=== PATIENT | female | born 1935 | race Caucasian/White ===

== ENCOUNTER 2018-02-01 21:29 | Inpatient (IN) | payer MEDICAID ==
[2018-02-01] MEDS ORDERED: Morphine 4 MG/ML VIAL IV ONE (21:55)
[2018-02-01 22:05] LABS: BASO # 0.2 K/uL (0.0-0.2); BASO % 2.1 % (0.0-2.0); EOS # 0.2 K/uL (0.0-0.7); EOS % 2.6 % (0.0-4.0); HEMOGLOBIN 13.9 g/dL (11.0-16.0); LYMPH # 3.8 K/uL (1.0-4.3); LYMPH % 46.9 % (20.0-40.0); MEAN CELL VOLUME 87.9 fL (81.0-99.0); MEAN CORPUSCULAR HEMOGLOBIN 29.1 pg (27.0-31.0); MEAN CORPUSCULAR HGB CONC 33.1 g/dL (33.0-37.0); MEAN PLATELET VOLUME 9.1 fL (7.2-11.7); MONO # 0.5 K/uL (0.0-0.8); MONO % 6.5 % (0.0-10.0); NEUT # 3.4 K/uL (1.8-7.0); NEUT % 41.9 % (50.0-75.0); RBC 4.78 Mil/uL (3.80-5.20); RED CELL DISTRIBUTION WIDTH 13.8 % (11.5-14.5); WHITE BLOOD COUNT 8.1 K/uL (4.8-10.8)
[2018-02-01 22:13] LABS: PROTHROMBIN TIME 11.1 SECONDS (9.7-12.2)
[2018-02-01 22:18] LABS: ALB/GLOB RATIO 1.1 (1.0-2.1); ALBUMIN 4.6 g/dL (3.5-5.0); ALT/SGPT 23 U/L (9-52); AST/SGOT 38 U/L (14-36); BLOOD UREA NITROGEN 23 mg/dL (7-17); CALCIUM 9.9 mg/dl (8.6-10.4); GFR AFRICAN-AMERICAN > 60; GFR NON-AFRICAN AMERICAN > 60
[2018-02-01 22:39] LABS: URINE BACTERIA RARE (<OCC); URINE BILIRUBIN NEGATIVE (NEGATIVE); URINE BLOOD NEGATIVE (NEGATIVE); URINE CLARITY Clear (Clear); URINE COLOR Yellow (YELLOW); URINE GLUCOSE (UA) 1+ mg/dL (Normal); URINE LEUKOCYTE ESTERASE NEG Leu/uL (Negative); URINE PROTEIN NEGATIVE (NEGATIVE); URINE UROBILINOGEN NORMAL mg/dL (0.2-1.0)
[2018-02-01 22:53] LABS: BARBITURATES, UR NEGATIVE (NEGATIVE); BENZODIAZEPINES, UR NEGATIVE (NEGATIVE); PHENCYCLIDINE, UR NEGATIVE (NEGATIVE)
[2018-02-01 23:07] LABS: OPIATES, UR POSITIVE (NEGATIVE)
--- NOTE | 2018-02-01 23:25 | C.PDOC ---
History Of Present Illness 82 year old female is brought to the ED by EMS for evaluation of right hip and elbow pain. Patient reports she fell while standing at home. Patient denies LOC , headache, head injury, blurry vision, weakness, numbness. Time Seen by Provider: 02/01/18 21:50 Chief Complaint (Nursing): Lower Extremity Problem/Injury History Per: Patient History/Exam Limitations: no limitations Onset/Duration Of Symptoms: Hrs Current Symptoms Are (Timing): Still Present Recent travel outside of the [place]: No Additional History Per: Patient - Hip Description Of Injury: Fell Currently Unable To: Straighten Past Medical History Reviewed: Historical Data, Nursing Documentation, Vital Signs Vital Signs: Last Vital Signs Temp 98.2 F 02/02/18 01:37 Pulse 64 02/01/18 23:26 Resp 16 02/02/18 01:37 BP 173/59 H 02/02/18 01:37 Pulse Ox 98 02/02/18 01:37 - Medical History PMH: No Chronic Diseases Surgical History: No Surg Hx Family History: States: Unknown Family Hx - Social History Hx Alcohol Use: No Hx Substance Use: No - Immunization History Hx Tetanus Toxoid Vaccination: No Hx Influenza Vaccination: No Hx Pneumococcal Vaccination: No Review Of Systems Constitutional: Negative for: Fever, Chills Cardiovascular: Negative for: Chest Pain Respiratory: Negative for: Shortness of Breath Gastrointestinal: Negative for: Abdominal Pain Musculoskeletal: Positive for: Arm Pain, Leg Pain Skin: Negative for: Rash Neurological: Negative for: Weakness, Numbness Physical Exam - Physical Exam Appears: Non-toxic, No Acute Distress Skin: Normal Color, Warm, Dry Head: Atraumatic, Normacephalic Eye(s): bilateral: Normal Inspection, PERRL, EOMI Nose: No Discharge Oral Mucosa: Moist Neck: Normal ROM, Supple Chest: Symmetrical Cardiovascular: Rhythm Regular, No Murmur Respiratory: Normal Breath Sounds, No Rales, No Rhonchi, No Wheezing Gastrointestinal/Abdominal: Soft, No Tenderness, No Guarding, No Rebound Extremity: Normal ROM (painful right elbow), No Tenderness, Capillary Refill (< 2 seconds), Swelling (abarsion to rigth elbow), Other (right leg shortened) Pulses: Left Dorsalis Pedis: Normal, Right Dorsalis Pedis: Normal Neurological/Psych: Oriented x3, Normal Speech, Normal Cognition Gait: Unable To Assess ED Course And Treatment - Laboratory Results Result Diagrams: 02/01/18 22:00 02/01/18 22:00 Lab Interpretation: Normal (+ opiates from morphine ? earlier surgery abd) ECG: Interpreted By Me ECG Rhythm: Sinus Rhythm ECG Interpretation: Normal Rate From EC (BPM) O2 Sat by Pulse Oximetry: 98 (ON RA) Pulse Ox Interpretation: Normal - Radiology CXR: Interpreted by Me CXR Interpretation: Yes: No Acute Disease - Other Rad R elbow X-Ray: Interpreted by Me (+ olecranon/elbow fx) R hip X-Ray: Interpreted by Me (+ R hip fx, no pelvic fx) Progress Note: morphine. posterior splint R elbow Reevaluation Time: 23:26 Reassessment Condition: Improved - Physician Consult Information Outcome Of Conversation: 2315: d/w Dr. Gramajo- Hospitalist [facility]-ok to admit. 2315: d/w Dr. Bobby- Ortho [facility]- ok to Consult Medical Decision Making Medical Decision Making: fall from standing ? dizzy from narcs from prior abd surgery? + R elbow/hip fx's. old L hip fx ORIF Disposition Doctor Will See Patient In The: Hospital Counseled Patient/Family Regarding: Studies Performed, Diagnosis - Disposition Disposition: HOSPITALIZED Disposition Time: 23:27 Condition: GOOD - Clinical Impression Clinical Impression: Hip fracture, Elbow fracture, right - Scribe Statement The provider has reviewed the documentation as recorded by the Scribe Aden Silva All medical record entries made by the Scribe were at my direction and personally dictated by me. I have reviewed the chart and agree that the record accurately reflects my personal performance of the history, physical exam, medical decision making, and the department course for this patient. I have also personally directed, reviewed, and agree with the discharge instructions and disposition.
[2018-02-01] MEDS ORDERED: Bacitracin 500 Units/gm Oint Foilpak UD ONE (23:47)
--- NOTE | 2018-02-01 23:47 | CP.PCM.HP ---
<Marianne Banda - Last Filed: 02/02/18 02:01> History of Present Illness - History of Present Illness History of Present Illness: H&P: 82 year old female with past medical history of HTN, diverticulitis, inguinal hernia repair with bowel resection 09/06 presented to hospital after experiencing a fall at home. Patient states that she tripped over an object at home and landed on her right side. Patient denies any LOS, dizziness, lightheadedness. Patient denied having any CP or palpitations when she tripped. Hip and elbow x rays done in ED showed right hip fracture and right olecranon fracture. Currently pt c/o right hip pain 7/10 in severity. Otherwise pt is resting comfortably. Denies having any CP, SOB, pain, N/V/D/C, F/C, cough , [place], tingling, numbness in extremities. Patient does have an open wound in periumbilical region. She states that after her open inguinal hernia repair with bowel resection in 08/2017, she developed an intraabdominal infection which was treated with oral Abx and open wound to be drained. Currently, denies having any drainage or pain at wound site. Pmhx: stated above Sx: inguinal hernia repair with bowel resection 08/2017. Left hip sx Social: former smoker quit 3 yrs ago, denies ETOH or drug use Meds: Enalapril 50 mg po qd NKDA Present on Admission - Present on Admission Any Indicators Present on Admission: No Review of Systems - Constitutional Constitutional: absent: Chills, Fever - EENT Eyes: absent: Blurred Vision, Change in Vision Nose/Mouth/Throat: absent: Nasal Congestion, Sore Throat - Cardiovascular Cardiovascular: absent: Chest Pain, Dyspnea, Dyspnea on Exertion, Pedal Edema - Respiratory Respiratory: absent: Cough, Dyspnea on Exertion, Wheezing - Gastrointestinal Gastrointestinal: absent: Abdominal Pain, Constipation, Diarrhea, Nausea, Vomiting - Genitourinary Genitourinary: absent: Dysuria, Urinary Frequency - Musculoskeletal Musculoskeletal: absent: Back Pain, Neck Pain, Numbness, Tingling - Integumentary Integumentary: Wounds. absent: Lesions - Neurological Neurological: absent: Abnormal Gait, Frequent Falls, Headaches, Tingling, Weakness - Psychiatric Psychiatric: absent: Anxiety, Depression Past Patient History - Past Social History Smoking Status: Former Smoker Chewing Tobacco Use: No Cigar Use: No Alcohol: None Drugs: Denies - GASTROINTESTINAL Hx Gastrointestinal Disorders: Yes Other/Comment: colon Sx 08/2017 - PSYCHIATRIC Hx Substance Use: No - SURGICAL HISTORY Hx Surgeries: Yes Other/Comment: colon surgery 08/2017 - ANESTHESIA Hx Anesthesia: Yes Hx Anesthesia Reactions: No Meds Allergies/Adverse Reactions: Allergies Allergy/AdvReac Type Severity Reaction Status Date / Time No Known Allergies Allergy Verified 02/01/18 21:45 Physical Exam - Constitutional Appears: Non-toxic, No Acute Distress - Head Exam Head Exam: ATRAUMATIC - ENT Exam ENT Exam: Mucous Membranes Moist - Respiratory Exam Respiratory Exam: Clear to Auscultation Bilateral. absent: Accessory Muscle Use , Rales, Rhonchi, Wheezes, Respiratory Distress - Cardiovascular Exam Cardiovascular Exam: REGULAR RHYTHM, +S1, +S2. absent: Diastolic murmur, Gallop , Rubs, Systolic Murmur - GI/Abdominal Exam GI & Abdominal Exam: Normal Bowel Sounds, Soft. absent: Distended, Firm, Guarding, Rigid, Tenderness - Extremities Exam Extremities exam: Positive for: tenderness (right hip and right elbow tenderness ). Negative for: pedal edema - Neurological Exam Neurological exam: Alert, Oriented x3 - Psychiatric Exam Psychiatric exam: Normal Affect, Normal Mood - Skin Skin Exam: Dry, Warm Additional comments: mid line abd wound noted Results - Vital Signs Recent Vital Signs: Last Vital Signs Temp 98.4 F 02/01/18 23:26 Pulse 64 02/01/18 23:26 Resp 18 02/01/18 23:26 BP 217/85 H 02/01/18 23:26 Pulse Ox 98 02/01/18 23:28 - Labs Result Diagrams: 02/01/18 22:00 02/01/18 22:00 Labs: Laboratory Results - last 24 hr 02/01/18 02/01/18 02/01/18 22:00 22:00 22:00 WBC 8.1 RBC 4.78 Hgb 13.9 Hct 42.0 MCV 87.9 MCH 29.1 MCHC 33.1 RDW 13.8 Plt Count 278 MPV 9.1 Neut % (Auto) 41.9 L Lymph % (Auto) 46.9 H [place] % (Auto) 6.5 Eos % (Auto) 2.6 Baso % (Auto) 2.1 H Neut # (Auto) 3.4 Lymph # (Auto) 3.8 [place] # (Auto) 0.5 Eos # (Auto) 0.2 Baso # (Auto) 0.2 PT 11.1 INR 1.0 APTT 33 Sodium 145 Potassium 3.5 L Chloride 103 Carbon Dioxide 24 Anion Gap 21 H BUN 23 H Creatinine 0.6 L Est GFR ( Amer) > 60 Est GFR (Non-Af Amer) > 60 Random Glucose 149 H Calcium 9.9 Total Bilirubin 0.5 AST 38 H ALT 23 Alkaline Phosphatase 129 H Total Protein 8.9 H Albumin 4.6 Globulin 4.2 H Albumin/Globulin Ratio 1.1 Urine Color Urine Clarity Urine pH Ur Specific [place] Urine Protein Urine Glucose (UA) Urine Ketones Urine Blood Urine Nitrate Urine Bilirubin Urine Urobilinogen Ur Leukocyte Esterase Urine WBC (Auto) Urine RBC (Auto) Urine Bacteria Urine Opiates Screen Urine Methadone Screen Ur Barbiturates Screen Ur Phencyclidine Scrn Ur Amphetamines Screen U Benzodiazepines Scrn U Oth Cocaine Metabols U Cannabinoids Screen 02/01/18 02/01/18 22:34 22:34 WBC RBC Hgb Hct MCV MCH MCHC RDW Plt Count MPV Neut % (Auto) Lymph % (Auto) [place] % (Auto) Eos % (Auto) Baso % (Auto) Neut # (Auto) Lymph # (Auto) [place] # (Auto) Eos # (Auto) Baso # (Auto) PT INR APTT Sodium Potassium Chloride Carbon Dioxide Anion Gap BUN Creatinine Est GFR ( Amer) Est GFR (Non-Af Amer) Random Glucose Calcium Total Bilirubin AST ALT Alkaline Phosphatase Total Protein Albumin Globulin Albumin/Globulin Ratio Urine Color Yellow Urine Clarity Clear Urine pH 5.0 Ur Specific [place] 1.016 Urine Protein Negative Urine Glucose (UA) 1+ Urine Ketones Negative Urine Blood Negative Urine Nitrate Negative Urine Bilirubin Negative Urine Urobilinogen Normal Ur Leukocyte Esterase Neg Urine WBC (Auto) 2 Urine RBC (Auto) 1 Urine Bacteria Rare Urine Opiates Screen Positive H Urine Methadone Screen Negative Ur Barbiturates Screen Negative Ur Phencyclidine Scrn Negative Ur Amphetamines Screen Negative U Benzodiazepines Scrn Negative U Oth Cocaine Metabols Negative U Cannabinoids Screen Negative Assessment & Plan - Assessment and Plan (Free Text) Assessment: 82 year old female with past medical history of HTN, osteoporosis, diverticulitis is admitted for right hip fracture and right olecranon fractures as seen on x rays (official report pending). Right hip fracture - Orthopedics, Dr. Bobby is consulted - Will admit to med/surg - Will get Ct scan of right hip - PT/OT - Pain management with morphine 2 mg q4 - Zofran prn Olecranon fracture - Ortho consulted - PT/OT HTN - Will start home medication enalapril Prophylaxis - SCDs. will hold on oral AC for possible surgery tomorrow - Pepcid Case discussed with attending, Dr. Gramajo - Date & Time Date: 02/01/18 Time: 23:44 <Clay Gramajo - Last Filed: 02/02/18 07:53> Results - Vital Signs Recent Vital Signs: Last Vital Signs Temp 98.2 F 02/02/18 07:10 Pulse 62 02/02/18 07:10 Resp 18 02/02/18 07:10 BP 177/71 H 02/02/18 07:10 Pulse Ox 96 02/02/18 07:10 - Labs Result Diagrams: 02/01/18 22:00 02/01/18 22:00 Labs: Laboratory Results - last 24 hr 02/01/18 02/01/18 02/01/18 22:00 22:00 22:00 WBC 8.1 RBC 4.78 Hgb 13.9 Hct 42.0 MCV 87.9 MCH 29.1 MCHC 33.1 RDW 13.8 Plt Count 278 MPV 9.1 Neut % (Auto) 41.9 L Lymph % (Auto) 46.9 H [place] % (Auto) 6.5 Eos % (Auto) 2.6 Baso % (Auto) 2.1 H Neut # (Auto) 3.4 Lymph # (Auto) 3.8 [place] # (Auto) 0.5 Eos # (Auto) 0.2 Baso # (Auto) 0.2 PT 11.1 INR 1.0 APTT 33 Sodium 145 Potassium 3.5 L Chloride 103 Carbon Dioxide 24 Anion Gap 21 H BUN 23 H Creatinine 0.6 L Est GFR ( Amer) > 60 Est GFR (Non-Af Amer) > 60 Random Glucose 149 H Calcium 9.9 Total Bilirubin 0.5 AST 38 H ALT 23 Alkaline Phosphatase 129 H Total Protein 8.9 H Albumin 4.6 Globulin 4.2 H Albumin/Globulin Ratio 1.1 Urine Color Urine Clarity Urine pH Ur Specific [place] Urine Protein Urine Glucose (UA) Urine Ketones Urine Blood Urine Nitrate Urine Bilirubin Urine Urobilinogen Ur Leukocyte Esterase Urine WBC (Auto) Urine RBC (Auto) Urine Bacteria Urine Opiates Screen Urine Methadone Screen Ur Barbiturates Screen Ur Phencyclidine Scrn Ur Amphetamines Screen U Benzodiazepines Scrn U Oth Cocaine Metabols U Cannabinoids Screen 02/01/18 02/01/18 22:34 22:34 WBC RBC Hgb Hct MCV MCH MCHC RDW Plt Count MPV Neut % (Auto) Lymph % (Auto) [place] % (Auto) Eos % (Auto) Baso % (Auto) Neut # (Auto) Lymph # (Auto) [place] # (Auto) Eos # (Auto) Baso # (Auto) PT INR APTT Sodium Potassium Chloride Carbon Dioxide Anion Gap BUN Creatinine Est GFR ( Amer) Est GFR (Non-Af Amer) Random Glucose Calcium Total Bilirubin AST ALT Alkaline Phosphatase Total Protein Albumin Globulin Albumin/Globulin Ratio Urine Color Yellow Urine Clarity Clear Urine pH 5.0 Ur Specific [place] 1.016 Urine Protein Negative Urine Glucose (UA) 1+ Urine Ketones Negative Urine Blood Negative Urine Nitrate Negative Urine Bilirubin Negative Urine Urobilinogen Normal Ur Leukocyte Esterase Neg Urine WBC (Auto) 2 Urine RBC (Auto) 1 Urine Bacteria Rare Urine Opiates Screen Positive H Urine Methadone Screen Negative Ur Barbiturates Screen Negative Ur Phencyclidine Scrn Negative Ur Amphetamines Screen Negative U Benzodiazepines Scrn Negative U Oth Cocaine Metabols Negative U Cannabinoids Screen Negative Attending/Attestation - Attestation I have personally seen and examined this patient.: Yes I have fully participated in the care of the patient.: Yes I have reviewed all pertinent clinical information: Yes Notes (Text): 02/02/18 07:49 * Fell on right side, has fracture in right elbow, right trochantaric area tenderness and pain, ? impacted fracture, CT ordered to confirm. 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 scd pain control gi prophylaxis.
[2018-02-02] MEDS ORDERED: Bacitracin 500 Units/gm Oint Foilpak UD TOP ONE
[2018-02-02] MEDS ORDERED: Morphine 4 MG/ML VIAL IVP PRN ×2 (00:24→07:24)
[2018-02-02] MEDS: Sodium Chloride 0.9% 1,000 ML IV SCH (00:50)
[2018-02-02] MEDS ORDERED: Oxycodone/Acetaminophen 5/325 mg Tab PO STA (04:14)
--- NOTE | 2018-02-02 09:14 | RAD ---
Chest x-ray single frontal view History: Hip fracture. Comparison: None available. Findings: Linear atelectatic changes at left lung base with associated elevated left hemidiaphragm. Emphysematous changes. Upper lobe granulomatous changes. Right hilar prominence. Additional mild linear atelectasis at the right lung base. Tortuous aorta. Degenerative changes in the spine with paravertebral osteophytes. Impression: Linear atelectatic changes at left lung base with associated elevated left hemidiaphragm. Emphysematous changes. Upper lobe granulomatous changes. Right hilar prominence. Additional mild linear atelectasis at the right lung base. Tortuous aorta.
--- NOTE | 2018-02-02 09:28 | CT ---
PROCEDURE: CT right hip HISTORY: fall, hip pain COMPARISON: None available TECHNIQUE: 2.5 mm contiguous axial sections were acquired through the right hip. Sagittal and coronal images were reformatted from the axial scan. FINDINGS: There is a nondisplaced intertrochanteric fracture of the right hip with mild impaction. There is no angulation of the fracture. There is no additional fracture identified. The femoral head is normally situated in the acetabulum. There is no acetabular fracture. There is no soft tissue hematoma appreciated. IMPRESSION: Nondisplaced intertrochanteric fracture of the right hip with mild impaction.
[2018-02-02] MEDS ORDERED: Enoxaparin 40 mg Syringe SC SCH (10:00)
[2018-02-02] MEDS ORDERED: Potassium Chloride 20 mEq ER Tab PO ONE (10:00)
[2018-02-02] MEDS: Oxycodone/Acetaminophen 5/325 mg Tab PO PRN (10:12)
--- NOTE | 2018-02-02 12:09 | CP.PCM.PN ---
<Yaritza Mckeon - Last Filed: 02/02/18 12:06> Subjective - Date & Time of Evaluation Date of Evaluation: 02/02/18 Time of Evaluation: 11:00 - Subjective Subjective: Medicine Note for Hospitalist Service- Dr. Jonel Naik Patient was seen and examined at bedside. Patient reports she has mild abdominal pain. Denied fever, chills, headaches, chest pain, shortness of breath , n/v/d/c, or urinary symptoms. Objective - Vital Signs/Intake and Output Vital Signs (last 24 hours): Temp Pulse Resp BP Pulse Ox 98.2 F 62 18 174/78 H 96 02/02/18 07:10 02/02/18 07:10 02/02/18 07:10 02/02/18 10:04 02/02/18 07:10 Intake and Output: 02/02/18 02/02/18 06:59 18:59 Output Total 300 Balance -300 - Medications Medications: Current Medications Acetaminophen (Tylenol 325mg Tab) 650 mg PO Q6 PRN PRN Reason: Pain, Mild (1-3) Enalapril Maleate (Vasotec) 40 mg PO DAILY [facility] Last Admin: 02/02/18 10:04 Dose: 40 mg Famotidine (Pepcid) 20 mg PO BID [facility] Last Admin: 02/02/18 10:04 Dose: 20 mg Hydralazine HCl (Apresoline) 10 mg IVP Q6H PRN PRN Reason: Systolic Blood Pressure Sodium Chloride (Sodium Chloride 0.9%) 1,000 mls @ 75 mls/hr IV .[id number] [facility] Last Admin: 02/02/18 00:50 Dose: 75 mls/hr Morphine Sulfate (Morphine) 1 mg IVP Q4H PRN PRN Reason: Pain, severe (8-10) Ondansetron HCl (Zofran Inj) 4 mg IVP Q6 PRN PRN Reason: Nausea/Vomiting Oxycodone/Acetaminophen (Percocet 5/325 Mg Tab) 1 tab PO Q4H PRN PRN Reason: Pain, moderate (4-7) Stop: 02/05/18 07:26 Last Admin: 02/02/18 10:12 Dose: 1 tab - Labs Labs: 02/01/18 22:00 05/14/18 22:00 PT 11.1 SECONDS (9.7-12.2) 02/01/18 22:00 INR 1.0 02/01/18 22:00 APTT 33 SECONDS (21-34) 02/01/18 22:00 - Constitutional Appears: No Acute Distress - Head Exam Head Exam: NORMAL INSPECTION, NORMOCEPHALIC - Eye Exam Eye Exam: EOMI, Normal appearance, PERRL - ENT Exam ENT Exam: Mucous Membranes Moist - Respiratory Exam Respiratory Exam: Clear to Ausculation Bilateral, NORMAL BREATHING PATTERN - Cardiovascular Exam Cardiovascular Exam: REGULAR RHYTHM, RRR, +S1, +S2 - GI/Abdominal Exam GI & Abdominal Exam: Soft, Tenderness (LLQ, surgical site clean, dry, some eschar noted mildine, no pus, no drainage, no erythema, no evidence of cellulitis overal healing well. placed clean, NONadhesive dressing to site. ), Normal Bowel Sounds Assessment and Plan - Assessment and Plan (Free Text) Assessment: 82 year old female with past medical history of HTN, osteoporosis, diverticulitis, S/P Ventral hernia repair with bowel resection 08/2017 (wound approximating, healing well) is admitted for right hip fracture and right olecranon fractures as seen on x rays, nondisplaced right hip fracture confirmed on CT Scan. Plan: Nondisplaced Right Hip Fracture - Orthopedics, Dr. Bobby is consulted Imaging: - Hip CT: Nondisplaced intertrochanteric fracture of the right hip with mild impaction. - Hip/ Pelvis Xray: Impacted fracture right femoral neck without dislocation. Degenerative changes are seen the bilateral sacroiliac and right hip joints. Diffuse osteopenia suggests osteoporosis. Prior left partial head replacement identified. - Elbow Xray: Comminuted nondisplaced fracture proximal right ulna through the olecranon process with extensive overlying soft tissue edema throughout the dorsal elbow soft tissues. No dislocation. Management: - Pain management with tylenol, percocet, morphine PRN - Zofran prn Medical Clearance: - EKG: NSR @ 65 BPM, NAD, no ST changes - CXR : NAD, Linear atelectatic changes at left lung base with associated elevated left hemidiaphragm. Emphysematous changes. Upper lobe granulomatous changes. Right hilar prominence. Additional mild linear atelectasis at the right lung base. Tortuous aorta. - Labs - cbc, cmp, and coags - WNL - ECHO - - Will speak to Orthro if OR is necessary - Lanasky's criteria: - Orthopedics and anesthesia to discuss risks and benefits prior to procedure respectively - Will hold anticoagulation for possible OR Olecranon fracture - Orthopedics, Dr. Bobby is consulted HTN - Will start home medication enalapril 40mg PO daily - Hydralazine 10mg IVP Q6H PRN for SBP > 160 mmHg, HR <60 - Patient is on fluids this will also increase BP - F/U ECHO S/P Ventral hernia repair with bowel resection 08/2017 - Wound approximating, healing well - Will continue with dressings - Continue to monitor site Prophylaxis - GI: Pepcid - DVT: SCDs, VTE c/i for pre-op - PT/OT Disposition: Will follow up with ortho to determine if OR is necessary for nondisplaced hip fracture. DW Yaritza Perez DO, PGY-1 <Jonel Naik J - Last Filed: 02/02/18 19:37> Objective - Vital Signs/Intake and Output Vital Signs (last 24 hours): Temp Pulse Resp BP Pulse Ox 98.1 F 57 L 18 107/52 L 96 02/02/18 15:20 02/02/18 15:20 02/02/18 15:20 02/02/18 15:20 02/02/18 15:20 Intake and Output: 02/02/18 02/03/18 18:59 06:59 Intake Total 300 Balance 300 - Medications Medications: Current Medications Acetaminophen (Tylenol 325mg Tab) 650 mg PO Q6 PRN PRN Reason: Pain, Mild (1-3) Docusate Sodium (Colace) 100 mg PO BID [facility] Last Admin: 02/02/18 17:27 Dose: 100 mg Enalapril Maleate (Vasotec) 40 mg PO DAILY [facility] Last Admin: 02/02/18 10:04 Dose: 40 mg Famotidine (Pepcid) 20 mg PO BID [facility] Last Admin: 02/02/18 17:27 Dose: 20 mg Hydralazine HCl (Apresoline) 10 mg IVP Q6H PRN PRN Reason: Systolic Blood Pressure Sodium Chloride (Sodium Chloride 0.9%) 1,000 mls @ 75 mls/hr IV .[id number] [facility] Last Admin: 02/02/18 00:50 Dose: 75 mls/hr Morphine Sulfate (Morphine) 1 mg IVP Q4H PRN PRN Reason: Pain, severe (8-10) Ondansetron HCl (Zofran Inj) 4 mg IVP Q6 PRN PRN Reason: Nausea/Vomiting Oxycodone/Acetaminophen (Percocet 5/325 Mg Tab) 1 tab PO Q4H PRN PRN Reason: Pain, moderate (4-7) Stop: 02/05/18 07:26 Last Admin: 02/02/18 10:12 Dose: 1 tab Polyethylene Glycol (Miralax) 17 gm PO DAILY [facility] - Labs Labs: 02/01/18 22:00 02/01/18 22:00 PT 11.1 SECONDS (9.7-12.2) 02/01/18 22:00 INR 1.0 02/01/18 22:00 APTT 33 SECONDS (21-34) 02/01/18 22:00 Attending/Attestation - Attestation I have personally seen and examined this patient.: Yes I have fully participated in the care of the patient.: Yes I have reviewed all pertinent clinical information, including history, physical exam and plan: Yes Notes (Text): 02/02/18 19:36 Patient was seen and examined with the resident. Exam, assessment and plan were gone over with the resident. Jonel Naik D.O.
--- NOTE | 2018-02-02 12:14 | RAD ---
PROCEDURE: RIGHT HIP WITH PELVIS RADIOGRAPHS HISTORY: fall, R hip pain, shortened COMPARISON: An impacted fracture of the right femoral neck is appreciated without dislocation or subluxation. No destructive bony lesion appreciated. Varus angulation is appreciated at the major distal fracture fragment. TECHNIQUE: FINDINGS: An impacted fracture of the right femoral neck is appreciated without dislocation or subluxation. No destructive bony lesion appreciated. Varus angulation is appreciated at the major distal fracture fragment. The pelvic ring is intact including pubic symphysis. Sacroiliac joint degenerative changes are identified. Left partial hip replacement hardware identified. IMPRESSION: Impacted fracture right femoral neck without dislocation. Degenerative changes are seen the bilateral sacroiliac and right hip joints. Diffuse osteopenia suggests osteoporosis. Prior left partial head replacement identified.
--- NOTE | 2018-02-02 12:18 | RAD ---
PROCEDURE: Radiographs of the right elbow. HISTORY: contusion COMPARISON: No prior. FINDINGS: BONES: There is a nondisplaced comminuted oblique fracture of the olecranon process of the proximal ulna which is articular. No dislocation or subluxation appreciable. JOINTS: Normal. No osteoarthritis. SOFT TISSUES: Extensive overlying soft tissue edema is seen diffusely throughout the dorsal elbow soft tissues without retained radiodense foreign body. Trace emphysematous changes are questioned and laceration is not excluded as result. Heterotopic calcifications are suggested the medial and lateral to the epicondyles of the distal right humerus. JOINT EFFUSION: None. OTHER FINDINGS: None. IMPRESSION: Comminuted nondisplaced fracture proximal right ulna through the olecranon process with extensive overlying soft tissue edema throughout the dorsal elbow soft tissues. No dislocation.
--- NOTE | 2018-02-02 14:39 | CARD ---
APPROVED REPORT EXAM: Two-dimensional and M-mode echocardiogram with Doppler and color Doppler. Other Information Quality : GoodRhythm : INDICATION Pre-Op RISK FACTORS Hypertension 2D DIMENSIONS IVSd0.8 (0.7-1.1cm)LVDd4.5 (3.9-5.9cm) PWd0.9 (0.7-1.1cm)LVDs2.6 (2.5-4.0cm) FS (%) 40.7 %LVEF (%)71.7 (>50%) M-Mode DIMENSIONS Left Atrium (MM)4.34 (2.5-4.0cm)Aortic Root3.11 (2.2-3.7cm) Aortic Cusp Exc.2.21 (1.5-2.0cm) Aortic Valve AI P 1/2 [id number] Mitral Valve MV E Tmcnqvlp24.3cm/sMV A Yththepi50.0cm/sE/A ratio0.4 TDI E/Lateral E'0.0E/Medial E'0.0 Tricuspid Valve TR Peak [id number]/sTR Peak Gr.[id number] LEFT VENTRICLE The left ventricle is normal size. There is normal left ventricular wall thickness. The left ventricular function is normal. The left ventricular ejection fraction is within the normal range. There is normal LV segmental wall motion. Transmitral Doppler flow pattern is Grade I-abnormal relaxation pattern. RIGHT VENTRICLE The right ventricle is normal size. There is normal right ventricular wall thickness. The right ventricular systolic function is normal. ATRIA The left atrium is mildly dilated. The right atrium size is normal. AORTIC VALVE The aortic valve is moderately thickened. There is mild to moderate aortic regurgitation. MITRAL VALVE The mitral valve is mildly thickened. There is no mitral valve stenosis. Mitral regurgitation is trace. TRICUSPID VALVE There is mild pulmonary hypertension. GREAT VESSELS The aortic root is normal in size. The IVC is normal in size and collapses >50% with inspiration. PERICARDIAL EFFUSION There is no pericardial effusion. <Conclusion> The left ventricle is normal size. There is normal left ventricular wall thickness. The left ventricular function is normal. The left ventricular ejection fraction is within the normal range. There is normal LV segmental wall motion. Transmitral Doppler flow pattern is Grade I-abnormal relaxation pattern. There is mild to moderate aortic regurgitation. There is mild pulmonary hypertension.
--- NOTE | 2018-02-02 19:36 | CP.PCM.CON ---
History of Present Illness - History of Present Illness History of Present Illness: Orthopedic consultation Dr. Bobby Patient seen with family member in ER at 7:30am 82F complains of right elbow and right hip pain after fall at home. Denies pain in other extremities. Denies headache. Denies fever/chills/n/v/CP/SOB/numbness/ tingling. Patient had prior left hip prosthesis for fracture. In Aug 2017 she had hernia repair and subsequent infection, currently with eschar. NKDA Review of Systems - Review of Systems All systems: reviewed and no additional remarkable complaints except - Constitutional Constitutional: As Per HPI - Cardiovascular Cardiovascular: As Per HPI - Gastrointestinal Gastrointestinal: As Per HPI - Musculoskeletal Musculoskeletal: As Per HPI - Integumentary Integumentary: As Per HPI - Neurological Neurological: As Per HPI - Hematologic/Lymphatic Hematologic: absent: As Per HPI, Easy Bleeding, Easy Bruising, Lymphadenopathy, Other Past Patient History - Past Medical History & Family History Past Medical History?: Yes Past Family History: Reviewed and not pertinent - Past Social History Smoking Status: Never Smoked - MUSCULOSKELETAL/RHEUMATOLOGICAL Hx Falls: Yes - GASTROINTESTINAL Hx Gastrointestinal Disorders: Yes Hx Bowel Surgery: Yes Other/Comment: colon Sx 08/2017 - GENITOURINARY/GYNECOLOGICAL Hx Genitourinary Disorders: No - PSYCHIATRIC Hx Psychophysiologic Disorder: No Hx Substance Use: No - SURGICAL HISTORY Hx Surgeries: Yes Hx Orthopedic Surgery: Yes Other/Comment: colon surgery 08/2017 - ANESTHESIA Hx Anesthesia: Yes Hx Anesthesia Reactions: No Hx Malignant Hyperthermia: No Meds Allergies/Adverse Reactions: Allergies Allergy/AdvReac Type Severity Reaction Status Date / Time No Known Allergies Allergy Verified 02/01/18 21:45 - Medications Medications: Current Medications Acetaminophen (Tylenol 325mg Tab) 650 mg PO Q6 PRN PRN Reason: Pain, Mild (1-3) Docusate Sodium (Colace) 100 mg PO BID [facility] Last Admin: 02/02/18 17:27 Dose: 100 mg Enalapril Maleate (Vasotec) 40 mg PO DAILY [facility] Last Admin: 02/02/18 10:04 Dose: 40 mg Famotidine (Pepcid) 20 mg PO BID [facility] Last Admin: 02/02/18 17:27 Dose: 20 mg Hydralazine HCl (Apresoline) 10 mg IVP Q6H PRN PRN Reason: Systolic Blood Pressure Sodium Chloride (Sodium Chloride 0.9%) 1,000 mls @ 75 mls/hr IV .[id number] [facility] Last Admin: 02/02/18 00:50 Dose: 75 mls/hr Morphine Sulfate (Morphine) 1 mg IVP Q4H PRN PRN Reason: Pain, severe (8-10) Ondansetron HCl (Zofran Inj) 4 mg IVP Q6 PRN PRN Reason: Nausea/Vomiting Oxycodone/Acetaminophen (Percocet 5/325 Mg Tab) 1 tab PO Q4H PRN PRN Reason: Pain, moderate (4-7) Stop: 02/05/18 07:26 Last Admin: 02/02/18 10:12 Dose: 1 tab Polyethylene Glycol (Miralax) 17 gm PO DAILY [facility] Physical Exam - Constitutional Appears: Well, No Acute Distress - Head Exam Head Exam: ATRAUMATIC - Expanded Upper Extremities Exam Right Forearm Wrist exam: full ROM (splint intact) Neuro motor exam: finger 2-5 abduction intact, thumb abduction, thumb IP flexion intact, thumb opposition intact, wrist extension intact Neurosensory exam: median nerve intact, radial nerve intact, ulnar nerve intact Vascular exam: radial pulse - Expanded Lower Extremities Exam Right Foot/Toe exam: full ROM (calves soft NT neg homand ) - Neurological Exam Neurological exam: Alert, Oriented x3 - Psychiatric Exam Psychiatric exam: Normal Affect, Normal Mood - Skin Skin Exam: Dry, Intact, Normal Color, Warm Results - Vital Signs Recent Vital Signs: Last Vital Signs Temp 98.1 F 02/02/18 15:20 Pulse 57 L 02/02/18 15:20 Resp 18 02/02/18 15:20 BP 107/52 L 02/02/18 15:20 Pulse Ox 96 02/02/18 15:20 - Labs Result Diagrams: 02/01/18 22:00 02/01/18 22:00 Labs: Laboratory Results - last 24 hr 02/01/18 02/01/18 02/01/18 22:00 22:00 22:00 WBC 8.1 RBC 4.78 Hgb 13.9 Hct 42.0 MCV 87.9 MCH 29.1 MCHC 33.1 RDW 13.8 Plt Count 278 MPV 9.1 Neut % (Auto) 41.9 L Lymph % (Auto) 46.9 H [place] % (Auto) 6.5 Eos % (Auto) 2.6 Baso % (Auto) 2.1 H Neut # (Auto) 3.4 Lymph # (Auto) 3.8 [place] # (Auto) 0.5 Eos # (Auto) 0.2 Baso # (Auto) 0.2 PT 11.1 INR 1.0 APTT 33 Sodium 145 Potassium 3.5 L Chloride 103 Carbon Dioxide 24 Anion Gap 21 H BUN 23 H Creatinine 0.6 L Est GFR ( Amer) > 60 Est GFR (Non-Af Amer) > 60 POC Glucose (mg/dL) Random Glucose 149 H Calcium 9.9 Total Bilirubin 0.5 AST 38 H ALT 23 Alkaline Phosphatase 129 H Total Protein 8.9 H Albumin 4.6 Globulin 4.2 H Albumin/Globulin Ratio 1.1 Urine Color Urine Clarity Urine pH Ur Specific [place] Urine Protein Urine Glucose (UA) Urine Ketones Urine Blood Urine Nitrate Urine Bilirubin Urine Urobilinogen Ur Leukocyte Esterase Urine WBC (Auto) Urine RBC (Auto) Urine Bacteria Urine Opiates Screen Urine Methadone Screen Ur Barbiturates Screen Ur Phencyclidine Scrn Ur Amphetamines Screen U Benzodiazepines Scrn U Oth Cocaine Metabols U Cannabinoids Screen 02/01/18 02/01/18 02/02/18 22:34 22:34 11:17 WBC RBC Hgb Hct MCV MCH MCHC RDW Plt Count MPV Neut % (Auto) Lymph % (Auto) [place] % (Auto) Eos % (Auto) Baso % (Auto) Neut # (Auto) Lymph # (Auto) [place] # (Auto) Eos # (Auto) Baso # (Auto) PT INR APTT Sodium Potassium Chloride Carbon Dioxide Anion Gap BUN Creatinine Est GFR ( Amer) Est GFR (Non-Af Amer) POC Glucose (mg/dL) 102 Random Glucose Calcium Total Bilirubin AST ALT Alkaline Phosphatase Total Protein Albumin Globulin Albumin/Globulin Ratio Urine Color Yellow Urine Clarity Clear Urine pH 5.0 Ur Specific [place] 1.016 Urine Protein Negative Urine Glucose (UA) 1+ Urine Ketones Negative Urine Blood Negative Urine Nitrate Negative Urine Bilirubin Negative Urine Urobilinogen Normal Ur Leukocyte Esterase Neg Urine WBC (Auto) 2 Urine RBC (Auto) 1 Urine Bacteria Rare Urine Opiates Screen Positive H Urine Methadone Screen Negative Ur Barbiturates Screen Negative Ur Phencyclidine Scrn Negative Ur Amphetamines Screen Negative U Benzodiazepines Scrn Negative U Oth Cocaine Metabols Negative U Cannabinoids Screen Negative 02/02/18 16:51 WBC RBC Hgb Hct MCV MCH MCHC RDW Plt Count MPV Neut % (Auto) Lymph % (Auto) [place] % (Auto) Eos % (Auto) Baso % (Auto) Neut # (Auto) Lymph # (Auto) [place] # (Auto) Eos # (Auto) Baso # (Auto) PT INR APTT Sodium Potassium Chloride Carbon Dioxide Anion Gap BUN Creatinine Est GFR ( Amer) Est GFR (Non-Af Amer) POC Glucose (mg/dL) 132 H Random Glucose Calcium Total Bilirubin AST ALT Alkaline Phosphatase Total Protein Albumin Globulin Albumin/Globulin Ratio Urine Color Urine Clarity Urine pH Ur Specific [place] Urine Protein Urine Glucose (UA) Urine Ketones Urine Blood Urine Nitrate Urine Bilirubin Urine Urobilinogen Ur Leukocyte Esterase Urine WBC (Auto) Urine RBC (Auto) Urine Bacteria Urine Opiates Screen Urine Methadone Screen Ur Barbiturates Screen Ur Phencyclidine Scrn Ur Amphetamines Screen U Benzodiazepines Scrn U Oth Cocaine Metabols U Cannabinoids Screen - Impressions Impression: atient Name / ID : RAMANA JORGENSEN / [id number] Exam Date : 02/02/2018 08:52:08 ( Approved ) Study Comment : Sex / Age : F / 82Y Creator : Qamar Knapp MD Dictator : Qamar Knapp MD [employer] : Rehab Aide : Qamar Knapp MD Approver2 : Report Date : 02/02/2018 09:27:07 My Comment : PROCEDURE: CT right hip HISTORY: fall, hip pain COMPARISON: None available TECHNIQUE: 2.5 mm contiguous axial sections were acquired through the right hip. Sagittal and coronal images were reformatted from the axial scan. FINDINGS: There is a nondisplaced intertrochanteric fracture of the right hip with mild impaction. There is no angulation of the fracture. There is no additional fracture identified. The femoral head is normally situated in the acetabulum. There is no acetabular fracture. There is no soft tissue hematoma appreciated. IMPRESSION: Nondisplaced intertrochanteric fracture of the right hip with mild impaction. atient Name / ID : RAMANA JORGENSEN / [id number] Exam Date : 02/01/2018 22:11:28 ( Approved ) Study Comment : Sex / Age : F / 82Y Creator : Kofi Kwong MD Dictator : Kofi Kwong MD [employer] : Rehab Aide : Kofi Kwong MD Approver2 : Report Date : 02/02/2018 12:16:54 My Comment : PROCEDURE: Radiographs of the right elbow. HISTORY: contusion COMPARISON: No prior. FINDINGS: BONES: There is a nondisplaced comminuted oblique fracture of the olecranon process of the proximal ulna which is articular. No dislocation or subluxation appreciable. JOINTS: Normal. No osteoarthritis. SOFT TISSUES: Extensive overlying soft tissue edema is seen diffusely throughout the dorsal elbow soft tissues without retained radiodense foreign body. Trace emphysematous changes are questioned and laceration is not excluded as result. Heterotopic calcifications are suggested the medial and lateral to the epicondyles of the distal right humerus. JOINT EFFUSION: None. OTHER FINDINGS: None. IMPRESSION: Comminuted nondisplaced fracture proximal right ulna through the olecranon process with extensive overlying soft tissue edema throughout the dorsal elbow soft tissues. No dislocation. Accession No. : [id number] Patient Name / ID : RAMANA JORGENSEN / [id number] Exam Date : 02/01/2018 22:10:56 ( Approved ) Study Comment : Sex / Age : F / 82Y Creator : Kofi Kwong MD Dictator : Kofi Kwong MD [employer]man : Rehab Aide : Kofi Kwong MD Approver2 : Report Date : 02/02/2018 12:12:24 My Comment : PROCEDURE: RIGHT HIP WITH PELVIS RADIOGRAPHS HISTORY: fall, R hip pain, shortened COMPARISON: An impacted fracture of the right femoral neck is appreciated without dislocation or subluxation. No destructive bony lesion appreciated. Varus angulation is appreciated at the major distal fracture fragment. TECHNIQUE: FINDINGS: An impacted fracture of the right femoral neck is appreciated without dislocation or subluxation. No destructive bony lesion appreciated. Varus angulation is appreciated at the major distal fracture fragment. The pelvic ring is intact including pubic symphysis. Sacroiliac joint degenerative changes are identified. Left partial hip replacement hardware identified. IMPRESSION: Impacted fracture right femoral neck without dislocation. Degenerative changes are seen the bilateral sacroiliac and right hip joints. Diffuse osteopenia suggests osteoporosis. Prior left partial head replacement identified. Assessment & Plan (1) Closed fracture of olecranon process of right ulna Assessment and Plan: Elbow and hip will both need ORIF, discussed with patient and family D/w Dr. Naik, patient is medically optimized for OR CT scan of right elbow ordered VTE proph venodynes pain control d/w Dr. Bobby, plan OR for 02/04 Status: Acute (2) Closed intertrochanteric fracture of right femur Status: Acute
[2018-02-03] MEDS: Oxycodone/Acetaminophen 5/325 mg Tab PO PRN ×2 (02:19→11:32)
[2018-02-03] MEDS: Sodium Chloride 0.9% 1,000 ML IV SCH ×2 (03:49→17:56)
--- NOTE | 2018-02-03 08:08 | CP.PCM.PCO ---
Physician Communication Note - Physician Communication Note Physician Communication Note: Medically optimized for surgery.
[2018-02-03 08:32] LABS: BASO # 0.1 K/uL (0.0-0.2); BASO % 1.3 % (0.0-2.0); EOS # 0.1 K/uL (0.0-0.7); EOS % 0.9 % (0.0-4.0); HEMOGLOBIN 11.3 g/dL (11.0-16.0); LYMPH # 2.3 K/uL (1.0-4.3); LYMPH % 30.2 % (20.0-40.0); MEAN CELL VOLUME 87.3 fL (81.0-99.0); MEAN CORPUSCULAR HEMOGLOBIN 29.5 pg (27.0-31.0); MEAN CORPUSCULAR HGB CONC 33.8 g/dL (33.0-37.0); MONO # 0.7 K/uL (0.0-0.8); NEUT # 4.4 K/uL (1.8-7.0); NEUT % 58.6 % (50.0-75.0); NRBC % 0.1 % (0.0-2.0); RBC 3.84 Mil/uL (3.80-5.20); RED CELL DISTRIBUTION WIDTH 13.4 % (11.5-14.5); WHITE BLOOD COUNT 7.6 K/uL (4.8-10.8)
[2018-02-03 08:43] LABS: ALBUMIN 3.3 g/dL (3.5-5.0); ALT/SGPT 23 U/L (9-52); AST/SGOT 25 U/L (14-36); BLOOD UREA NITROGEN 10 mg/dL (7-17); CALCIUM 8.8 mg/dl (8.6-10.4); GFR AFRICAN-AMERICAN > 60; GFR NON-AFRICAN AMERICAN > 60
[2018-02-03] MEDS: Ergocalciferol 50,000 Intl Units Cap PO SCH (10:15)
--- NOTE | 2018-02-03 10:47 | CT ---
PROCEDURE: CT right elbow HISTORY: right elbow, olecranon fx operative planning COMPARISON: Not available TECHNIQUE: 1.25 mm contiguous axial sections were acquired through the right elbow. Sagittal and coronal images were reformatted from the axial scan. FINDINGS: There is a minimally displaced comminuted intra-articular olecranon fracture. No other fracture is identified. There is evidence of hemarthrosis. There is no soft tissue mass or collection extrinsic to the joint capsule. IMPRESSION: Comminuted minimally displaced intra-articular olecranon fracture.
[2018-02-03] MEDS: POLYETHYLENE GLYCOL 3350 17 GM/Dose PACKET PO SCH (11:00)
--- NOTE | 2018-02-03 11:02 | CP.PCM.PN ---
<Yaritza Mckeon - Last Filed: 02/03/18 11:02> Subjective - Date & Time of Evaluation Date of Evaluation: 02/03/18 Time of Evaluation: 07:00 - Subjective Subjective: Medicine Note for Hospitalist Service- Dr. Jonel Naik Patient was seen and examined at bedside. Patient reports she feels much better today. Denied fever, chills, headaches, chest pain, shortness of breath, abdominal pain, n/v/d/c, or urinary symptoms. Objective - Vital Signs/Intake and Output Vital Signs (last 24 hours): Temp Pulse Resp BP Pulse Ox 98.6 F 60 20 162/71 H 96 02/03/18 07:20 02/03/18 07:20 02/03/18 07:20 02/03/18 07:20 02/03/18 07:20 Intake and Output: 02/03/18 02/03/18 06:59 18:59 Intake Total 860 Output Total 400 Balance 460 - Medications Medications: Current Medications Acetaminophen (Tylenol 325mg Tab) 650 mg PO Q6 PRN PRN Reason: Pain, Mild (1-3) Docusate Sodium (Colace) 100 mg PO BID [facility] Last Admin: 02/02/18 17:27 Dose: 100 mg Enalapril Maleate (Vasotec) 40 mg PO DAILY [facility] Last Admin: 02/02/18 10:04 Dose: 40 mg Ergocalciferol (Drisdol 50,000 Intl Units Cap) 1 cap PO Q7D [facility] Famotidine (Pepcid) 20 mg PO BID [facility] Last Admin: 02/02/18 17:27 Dose: 20 mg Hydralazine HCl (Apresoline) 10 mg IVP Q6H PRN PRN Reason: Systolic Blood Pressure Sodium Chloride (Sodium Chloride 0.9%) 1,000 mls @ 75 mls/hr IV .[id number] [facility] Last Admin: 02/03/18 03:49 Dose: 75 mls/hr Morphine Sulfate (Morphine) 1 mg IVP Q4H PRN PRN Reason: Pain, severe (8-10) Ondansetron HCl (Zofran Inj) 4 mg IVP Q6 PRN PRN Reason: Nausea/Vomiting Oxycodone/Acetaminophen (Percocet 5/325 Mg Tab) 1 tab PO Q4H PRN PRN Reason: Pain, moderate (4-7) Stop: 02/05/18 07:26 Last Admin: 02/03/18 02:19 Dose: 1 tab Polyethylene Glycol (Miralax) 17 gm PO DAILY [facility] - Labs Labs: 02/03/18 08:07 02/03/18 08:07 PT 11.1 SECONDS (9.7-12.2) 02/01/18 22:00 INR 1.0 02/01/18 22:00 APTT 33 SECONDS (21-34) 02/01/18 22:00 - Head Exam Additional comments: - Constitutional Appears: No Acute Distress - Head Exam Head Exam: NORMAL INSPECTION, NORMOCEPHALIC - Eye Exam Eye Exam: EOMI, Normal appearance, PERRL - ENT Exam ENT Exam: Mucous Membranes Moist - Respiratory Exam Respiratory Exam: Clear to Ausculation Bilateral, NORMAL BREATHING PATTERN - Cardiovascular Exam Cardiovascular Exam: REGULAR RHYTHM, RRR, +S1, +S2 - GI/Abdominal Exam GI & Abdominal Exam: Soft, Tenderness (LLQ, surgical site clean, dry, some eschar noted mildine, no pus, no drainage, no erythema, no evidence of cellulitis overal healing well. placed clean, NONadhesive dressing to site. ), Normal Bowel Sounds - Extremities Exam Extremities Exam: Normal Inspection. absent: Pedal Edema, Tenderness - Neurological Exam Neurological Exam: Alert, Awake, Oriented x3 - Psychiatric Exam Psychiatric exam: Normal Affect, Normal Mood - Skin Skin Exam: Dry, Intact, Normal Color, Warm Assessment and Plan - Assessment and Plan (Free Text) Assessment: 82 year old female with past medical history of HTN, osteoporosis, diverticulitis, S/P Ventral hernia repair with bowel resection 08/2017 (wound approximating, healing well) is admitted for right hip fracture and right olecranon fractures as seen on x rays, nondisplaced right hip fracture confirmed on CT Scan. Plan: Nondisplaced Right Hip Fracture - Orthopedics, Dr. Bobby is consulted Imaging: - Hip CT: Nondisplaced intertrochanteric fracture of the right hip with mild impaction. - Hip/ Pelvis Xray: Impacted fracture right femoral neck without dislocation. Degenerative changes are seen the bilateral sacroiliac and right hip joints. Diffuse osteopenia suggests osteoporosis. Prior left partial head replacement identified. - Elbow Xray: Comminuted nondisplaced fracture proximal right ulna through the olecranon process with extensive overlying soft tissue edema throughout the dorsal elbow soft tissues. No dislocation. Management: - Pain management with tylenol, percocet, morphine PRN - Zofran prn Medical Clearance: - EKG: NSR @ 65 BPM, NAD, no ST changes - CXR : NAD, Linear atelectatic changes at left lung base with associated elevated left hemidiaphragm. Emphysematous changes. Upper lobe granulomatous changes. Right hilar prominence. Additional mild linear atelectasis at the right lung base. Tortuous aorta. - Labs - cbc, cmp, and coags - WNL - ECHO - LVEF 71 % - OR for Right ORIF 02/04/18 - Detsky's criteria: Patient is low-medium risk individual for Class I 6% complications - Patient is medically optimized for surgery - Orthopedics and anesthesia to discuss risks and benefits prior to procedure respectively - Will hold anticoagulation for OR 02/04/18 Olecranon fracture - Orthopedics, Dr. Bobby is consulted - CT Right Upper Extremity: Comminuted minimally displaced intra-articular olecranon fracture HTN - Will start home medication enalapril 40mg PO daily - Hydralazine 10mg IVP Q6H PRN for SBP > 160 mmHg, HR <60 - Patient is on fluids this will also increase BP - ECHO - LVEF 71 % S/P Ventral hernia repair with bowel resection 08/2017 - Wound approximating, healing well - Will continue with dressings - Continue to monitor site Prophylaxis - GI: Pepcid - DVT: SCDs, VTE c/i for pre-op - PT/OT Disposition: Patient is for OR 02/04 for right ORIF. DW Yaritza Perez DO, PGY-1 <Jonel Naik J - Last Filed: 02/03/18 19:07> Objective - Vital Signs/Intake and Output Vital Signs (last 24 hours): Temp Pulse Resp BP Pulse Ox 98.8 F 64 20 134/60 96 02/03/18 16:13 02/03/18 16:13 02/03/18 16:13 02/03/18 16:13 02/03/18 16:13 Intake and Output: 02/03/18 02/04/18 18:59 06:59 Intake Total 825 Output Total 850 Balance -25 - Medications Medications: Current Medications Acetaminophen (Tylenol 325mg Tab) 650 mg PO Q6 PRN PRN Reason: Pain, Mild (1-3) Collagenase (Santyl) 0 gm TOP DAILY [facility] Last Admin: 02/03/18 14:00 Dose: 1 applic Docusate Sodium (Colace) 100 mg PO BID [facility] Last Admin: 02/03/18 17:55 Dose: 100 mg Enalapril Maleate (Vasotec) 40 mg PO DAILY [facility] Last Admin: 02/03/18 10:45 Dose: 40 mg Ergocalciferol (Drisdol 50,000 Intl Units Cap) 1 cap PO Q7D [facility] Last Admin: 02/03/18 10:15 Dose: 1 cap Famotidine (Pepcid) 20 mg PO BID [facility] Last Admin: 02/03/18 17:55 Dose: 20 mg Hydralazine HCl (Apresoline) 10 mg IVP Q6H PRN PRN Reason: Systolic Blood Pressure Sodium Chloride (Sodium Chloride 0.9%) 1,000 mls @ 75 mls/hr IV .[id number] [facility] Last Admin: 02/03/18 17:56 Dose: Not Given Morphine Sulfate (Morphine) 1 mg IVP Q4H PRN PRN Reason: Pain, severe (8-10) Mupirocin (Bactroban Ointment) 0 gm TOP DAILY [facility] Last Admin: 02/03/18 14:54 Dose: 1 applic Ondansetron HCl (Zofran Inj) 4 mg IVP Q6 PRN PRN Reason: Nausea/Vomiting Oxycodone/Acetaminophen (Percocet 5/325 Mg Tab) 1 tab PO Q4H PRN PRN Reason: Pain, moderate (4-7) Stop: 02/05/18 07:26 Last Admin: 02/03/18 11:32 Dose: 1 tab Polyethylene Glycol (Miralax) 17 gm PO DAILY [facility] Last Admin: 02/03/18 11:00 Dose: 17 gm - Labs Labs: 02/03/18 08:07 02/03/18 08:07 PT 11.1 SECONDS (9.7-12.2) 02/01/18 22:00 INR 1.0 02/01/18 22:00 APTT 33 SECONDS (21-34) 02/01/18 22:00 Attending/Attestation - Attestation I have personally seen and examined this patient.: Yes I have fully participated in the care of the patient.: Yes I have reviewed all pertinent clinical information, including history, physical exam and plan: Yes Notes (Text): 02/03/18 19:00 Patient was seen and examined at 8 AM. Exam, assessment and plan were gone over with the resident. Plan is for surgery for 02/04/18. Medically optimized. Spoke with Wound Care Nurse Efrain Mckinney and for the abdominal eschar area from prior surgical site, he has written orders for Santyl and Bactroban 1x/day. Spoke with [employer] [place]. Does not qualify for [facility] or home care due to lack of insurance. Will need clearance from PT prior to discharge after surgery. Rx for either walker or cane will need to be provided to Supervisor [employer] Jonel Naik D.O.
--- NOTE | 2018-02-03 12:50 | CP.PCM.PN ---
Subjective - Date & Time of Evaluation Date of Evaluation: 02/03/18 Time of Evaluation: 12:52 - Subjective Subjective: Pateint with family at bedside. 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 COmplains of right hand swelling. Advised to keep elevated. No new complaints. Objective - Vital Signs/Intake and Output Vital Signs (last 24 hours): Temp Pulse Resp BP Pulse Ox 98.6 F 60 20 138/75 96 02/03/18 07:20 02/03/18 07:20 02/03/18 07:20 02/03/18 10:45 02/03/18 07:20 Intake and Output: 02/03/18 02/03/18 06:59 18:59 Intake Total 860 Output Total 400 850 Balance 460 -850 - Medications Medications: Current Medications Acetaminophen (Tylenol 325mg Tab) 650 mg PO Q6 PRN PRN Reason: Pain, Mild (1-3) Collagenase (Santyl) 0 gm TOP DAILY [facility] Docusate Sodium (Colace) 100 mg PO BID [facility] Last Admin: 02/03/18 11:00 Dose: 100 mg Enalapril Maleate (Vasotec) 40 mg PO DAILY [facility] Last Admin: 02/03/18 10:45 Dose: 40 mg Ergocalciferol (Drisdol 50,000 Intl Units Cap) 1 cap PO Q7D [facility] Last Admin: 02/03/18 10:15 Dose: 1 cap Famotidine (Pepcid) 20 mg PO BID [facility] Last Admin: 02/03/18 10:45 Dose: 20 mg Hydralazine HCl (Apresoline) 10 mg IVP Q6H PRN PRN Reason: Systolic Blood Pressure Sodium Chloride (Sodium Chloride 0.9%) 1,000 mls @ 75 mls/hr IV .[id number] [facility] Last Admin: 02/03/18 03:49 Dose: 75 mls/hr Morphine Sulfate (Morphine) 1 mg IVP Q4H PRN PRN Reason: Pain, severe (8-10) Mupirocin (Bactroban Ointment) 0 gm TOP DAILY [facility] Ondansetron HCl (Zofran Inj) 4 mg IVP Q6 PRN PRN Reason: Nausea/Vomiting Oxycodone/Acetaminophen (Percocet 5/325 Mg Tab) 1 tab PO Q4H PRN PRN Reason: Pain, moderate (4-7) Stop: 02/05/18 07:26 Last Admin: 02/03/18 11:32 Dose: 1 tab Polyethylene Glycol (Miralax) 17 gm PO DAILY [facility] Last Admin: 02/03/18 11:00 Dose: 17 gm - Labs Labs: 02/03/18 08:07 02/03/18 08:07 PT 11.1 SECONDS (9.7-12.2) 02/01/18 22:00 INR 1.0 02/01/18 22:00 APTT 33 SECONDS (21-34) 02/01/18 22:00 - GI/Abdominal Exam Additional comments: 1.5x2cm wound to mid lower abd with eschar and fibrinous exudate, no sweling, no odor, no surrounding erythema Assessment and Plan (1) Closed fracture of olecranon process of right ulna Assessment & Plan: Elbow and hip will both need surgery (ORIF elbow, ORIF vs THR hip per Dr. Bobby), discussed with patient and family D/w Dr. Naik, patient is medically optimized for OR CT scan of right elbow appreciated VTE proph [facility] wound care nurse on consult for abd wound, agrees no signs of active infection pain control d/w Dr. Bobby, plan OR for 02/04 Status: Acute (2) Closed intertrochanteric fracture of right femur Status: Acute (3) Vitamin D deficiency Assessment & Plan: supp Status: Chronic Radiology Interpretation - Radiology Interpretation #2 Interpretation: atient Name / ID : RAMANA JORGENSEN / [id number] Exam Date : 02/03/2018 09:52:19 ( Approved ) Study Comment : Sex / Age : F / [id number] Creator : Janie Robertson Dictator : Qamar Knapp MD Air Reduction Equipment Operator : Insole Tacker : Qamar Knapp MD Approver2 : Report Date : 02/03/2018 10:06:51 My Comment : PROCEDURE: CT right elbow HISTORY: right elbow, olecranon fx operative planning COMPARISON: Not available TECHNIQUE: 1.25 mm contiguous axial sections were acquired through the right elbow. Sagittal and coronal images were reformatted from the axial scan. FINDINGS: There is a minimally displaced comminuted intra-articular olecranon fracture. No other fracture is identified. There is evidence of hemarthrosis. There is no soft tissue mass or collection extrinsic to the joint capsule. IMPRESSION: Comminuted minimally displaced intra-articular olecranon fracture.
[2018-02-03] MEDS: Collagenase 250 Units/gm Ointment(30 gm) TOP SCH (14:00)
[2018-02-04] MEDS: Sodium Chloride 0.9% 1,000 ML IV SCH ×2 (04:00→19:07)
[2018-02-04 08:54] LABS: HEMOGLOBIN 11.9 g/dL (11.0-16.0); MEAN CELL VOLUME 86.2 fL (81.0-99.0); MEAN CORPUSCULAR HEMOGLOBIN 29.6 pg (27.0-31.0); MEAN CORPUSCULAR HGB CONC 34.4 g/dL (33.0-37.0); MEAN PLATELET VOLUME 8.8 fL (7.2-11.7); RED CELL DISTRIBUTION WIDTH 13.6 % (11.5-14.5); WHITE BLOOD COUNT 9.9 K/uL (4.8-10.8)
[2018-02-04 09:05] LABS: BLOOD UREA NITROGEN 8 mg/dL (7-17); CALCIUM 8.9 mg/dl (8.6-10.4); GFR AFRICAN-AMERICAN > 60; GFR NON-AFRICAN AMERICAN > 60
[2018-02-04] MEDS ORDERED: Absorbable Gelatin Sponge Size 100 ONE (09:10)
[2018-02-04] MEDS ORDERED: Thrombin Topical 5,000 Int Units Spray Kit ONE (09:10)
[2018-02-04] MEDS ORDERED: Bacitracin Ointment 30 GM TUBE ONE (09:10)
[2018-02-04] MEDS ORDERED: Thrombin Topical 20,000 Intl Units Spray Kit TOP ONE (09:11)
[2018-02-04] MEDS ORDERED: Bacitracin 50,000 UNIT in Sodium Chloride 0.9% Irrig 1,000 ML IR SCH (09:34)
[2018-02-04] MEDS ORDERED: Oxycodone/Acetaminophen 5/325 mg Tab PO STA (09:39)
[2018-02-04] MEDS ORDERED: Propofol 10 mg/ml Inj (20 ML) ONE (09:43)
[2018-02-04] MEDS ORDERED: ceFAZolin 2 GM in Sodium Chloride 0.9% 100 ML IVPB ONE (09:45)
[2018-02-04] MEDS: Collagenase 250 Units/gm Ointment(30 gm) TOP SCH (10:40)
--- NOTE | 2018-02-04 10:42 | CP.PCM.PN ---
<Yaritza Mckeon - Last Filed: 02/04/18 10:39> Subjective - Date & Time of Evaluation Date of Evaluation: 02/04/18 Time of Evaluation: 09:00 - Subjective Subjective: Medicine Note for Hospitalist Service- Dr. Jonel Naik Patient was seen and examined at bedside. Patient is NPO for OR today for ORIF elbow, ORIF vs THR hip with Dr. Bobby at 11am. Denied fever, chills, headaches , chest pain, shortness of breath, abdominal pain, n/v/d/c, or urinary symptoms. Objective - Vital Signs/Intake and Output Vital Signs (last 24 hours): Temp Pulse Resp BP Pulse Ox 100.0 F H 72 20 153/67 H 96 02/04/18 07:17 02/04/18 07:17 02/04/18 07:17 02/04/18 07:17 02/04/18 07:17 Intake and Output: 02/04/18 02/04/18 06:59 18:59 Intake Total 1320 Output Total 1800 Balance -480 - Medications Medications: Current Medications Acetaminophen (Tylenol 325mg Tab) 650 mg PO Q6 PRN PRN Reason: Pain, Mild (1-3) Collagenase (Santyl) 0 gm TOP DAILY [facility] Last Admin: 02/03/18 14:00 Dose: 1 applic Docusate Sodium (Colace) 100 mg PO BID [facility] Last Admin: 02/03/18 17:55 Dose: 100 mg Enalapril Maleate (Vasotec) 40 mg PO DAILY [facility] Last Admin: 02/03/18 10:45 Dose: 40 mg Ergocalciferol (Drisdol 50,000 Intl Units Cap) 1 cap PO Q7D [facility] Last Admin: 02/03/18 10:15 Dose: 1 cap Famotidine (Pepcid) 20 mg PO BID [facility] Last Admin: 02/03/18 17:55 Dose: 20 mg Hydralazine HCl (Apresoline) 10 mg IVP Q6H PRN PRN Reason: Systolic Blood Pressure Last Admin: 02/04/18 06:30 Dose: 10 mg Sodium Chloride (Sodium Chloride 0.9%) 1,000 mls @ 75 mls/hr IV .[id number] [facility] Last Admin: 02/04/18 04:00 Dose: 75 mls/hr Cefazolin Sodium 2 gm/ Sodium (Chloride) 100 mls @ 100 mls/hr IVPB ONCE ONE PRN Reason: Protocol Stop: 02/04/18 10:44 Morphine Sulfate (Morphine) 1 mg IVP Q4H PRN PRN Reason: Pain, severe (8-10) Mupirocin (Bactroban Ointment) 0 gm TOP DAILY [facility] Last Admin: 02/03/18 14:54 Dose: 1 applic Ondansetron HCl (Zofran Inj) 4 mg IVP Q6 PRN PRN Reason: Nausea/Vomiting Oxycodone/Acetaminophen (Percocet 5/325 Mg Tab) 1 tab PO Q4H PRN PRN Reason: Pain, moderate (4-7) Stop: 02/05/18 07:26 Last Admin: 02/03/18 11:32 Dose: 1 tab Polyethylene Glycol (Miralax) 17 gm PO DAILY [facility] Last Admin: 02/03/18 11:00 Dose: 17 gm - Labs Labs: 02/04/18 08:43 02/04/18 08:43 PT 11.1 SECONDS (9.7-12.2) 02/01/18 22:00 INR 1.0 02/01/18 22:00 APTT 33 SECONDS (21-34) 02/01/18 22:00 - Additional Findings Additional findings: - Head Exam Additional comments: - Constitutional Appears: No Acute Distress - Head Exam Head Exam: NORMAL INSPECTION, NORMOCEPHALIC - Eye Exam Eye Exam: EOMI, Normal appearance, PERRL - ENT Exam ENT Exam: Mucous Membranes Moist - Respiratory Exam Respiratory Exam: Clear to Ausculation Bilateral, NORMAL BREATHING PATTERN - Cardiovascular Exam Cardiovascular Exam: REGULAR RHYTHM, RRR, +S1, +S2 - GI/Abdominal Exam GI & Abdominal Exam: Soft, Tenderness (LLQ, surgical site clean, dry, some eschar noted mildine, no pus, no drainage, no erythema, no evidence of cellulitis overal healing well. placed clean, NONadhesive dressing to site. ), Normal Bowel Sounds - Extremities Exam Extremities Exam: Normal Inspection. absent: Pedal Edema, Tenderness - Neurological Exam Neurological Exam: Alert, Awake, Oriented x3 - Psychiatric Exam Psychiatric exam: Normal Affect, Normal Mood - Skin Skin Exam: Dry, Intact, Normal Color, Warm Assessment and Plan - Assessment and Plan (Free Text) Assessment: 82 year old female with past medical history of HTN, osteoporosis, diverticulitis, S/P Ventral hernia repair with bowel resection 08/2017 (wound approximating, healing well) is admitted for right hip fracture and right olecranon fractures as seen on x rays, nondisplaced right hip fracture confirmed on CT Scan. ORIF elbow, ORIF vs THR hip with Dr. Bobby on 02/04/18. Plan: Nondisplaced Right Hip Fracture - Orthopedics, Dr. Bobby is consulted Imaging: - Hip CT: Nondisplaced intertrochanteric fracture of the right hip with mild impaction. - Hip/ Pelvis Xray: Impacted fracture right femoral neck without dislocation. Degenerative changes are seen the bilateral sacroiliac and right hip joints. Diffuse osteopenia suggests osteoporosis. Prior left partial head replacement identified. - Elbow Xray: Comminuted nondisplaced fracture proximal right ulna through the olecranon process with extensive overlying soft tissue edema throughout the dorsal elbow soft tissues. No dislocation. Management: - Pain management with tylenol, percocet, morphine PRN - Zofran prn Medical Clearance: - EKG: NSR @ 65 BPM, NAD, no ST changes - CXR : NAD, Linear atelectatic changes at left lung base with associated elevated left hemidiaphragm. Emphysematous changes. Upper lobe granulomatous changes. Right hilar prominence. Additional mild linear atelectasis at the right lung base. Tortuous aorta. - Labs - cbc, cmp, and coags - WNL - ECHO - LVEF 71 % - Detsky's criteria: Patient is low-medium risk individual for Class I 6% complications - Patient is medically optimized for surgery - Orthopedics and anesthesia to discuss risks and benefits prior to procedure respectively - OR for ORIF elbow, ORIF vs THR hip with Dr. Bobby on 02/04/18 Olecranon fracture - Orthopedics, Dr. Bobby is consulted - CT Right Upper Extremity: Comminuted minimally displaced intra-articular olecranon fracture - OR for ORIF elbow, ORIF vs THR hip with Dr. Bobby on 02/04/18 HTN - Will start home medication enalapril 40mg PO daily - Hydralazine 10mg IVP Q6H PRN for SBP > 160 mmHg, HR <60 - Patient is on fluids this will also increase BP - ECHO - LVEF 71 % S/P Ventral hernia repair with bowel resection 08/2017 - Wound approximating, healing well - Will continue with dressings - Continue to monitor site Prophylaxis - GI: Pepcid - DVT: SCDs, VTE c/i for pre-op - PT/OT Disposition: OR for ORIF elbow, ORIF vs THR hip with Dr. Bobby on 02/04/[address] Jonel Naik, Yaritza Mckeon DO, PGY-1 <Jonel Naik J - Last Filed: 02/04/18 18:47> Objective - Vital Signs/Intake and Output Vital Signs (last 24 hours): Temp Pulse Resp BP Pulse Ox 97.5 F L 55 L 18 155/68 H 97 02/04/18 16:58 02/04/18 16:35 02/04/18 16:58 02/04/18 16:58 02/04/18 16:58 Intake and Output: 02/04/18 02/04/18 06:59 18:59 Intake Total 1320 1450 Output Total 1800 Balance -480 1450 - Medications Medications: Current Medications Acetaminophen (Tylenol 325mg Tab) 650 mg PO Q6 PRN PRN Reason: Pain, Mild (1-3) Collagenase (Santyl) 0 gm TOP DAILY [facility] Last Admin: 02/04/18 10:40 Dose: Not Given Docusate Sodium (Colace) 100 mg PO BID [facility] Last Admin: 02/04/18 18:08 Dose: 100 mg Enalapril Maleate (Vasotec) 40 mg PO DAILY [facility] Last Admin: 02/04/18 10:40 Dose: Not Given Enoxaparin Sodium (Lovenox) 40 mg SC Q24H [facility] Ergocalciferol (Drisdol 50,000 Intl Units Cap) 1 cap PO Q7D [facility] Last Admin: 02/03/18 10:15 Dose: 1 cap Famotidine (Pepcid) 20 mg PO BID [facility] Last Admin: 02/04/18 18:08 Dose: 20 mg Hydralazine HCl (Apresoline) 10 mg IVP Q6H PRN PRN Reason: Systolic Blood Pressure Last Admin: 02/04/18 06:30 Dose: 10 mg Sodium Chloride (Sodium Chloride 0.9%) 1,000 mls @ 75 mls/hr IV .[id number] [facility] Last Admin: 02/04/18 04:00 Dose: 75 mls/hr Cefazolin Sodium 2 gm/ Sodium (Chloride) 100 mls @ 100 mls/hr IVPB Q8H [facility] PRN Reason: Protocol Stop: 02/05/18 04:59 Morphine Sulfate (Morphine) 2 mg IVP Q4H PRN PRN Reason: Pain, severe (8-10) Mupirocin (Bactroban Ointment) 0 gm TOP DAILY [facility] Last Admin: 02/04/18 10:40 Dose: Not Given Ondansetron HCl (Zofran Inj) 4 mg IVP Q6 PRN PRN Reason: Nausea/Vomiting Last Admin: 02/04/18 18:08 Dose: 4 mg Oxycodone/Acetaminophen (Percocet 5/325 Mg Tab) 1 tab PO Q4H PRN PRN Reason: Pain, moderate (4-7) Stop: 02/05/18 07:26 Last Admin: 02/03/18 11:32 Dose: 1 tab Polyethylene Glycol (Miralax) 17 gm PO DAILY [facility] Last Admin: 02/03/18 11:00 Dose: 17 gm - Labs Labs: 02/04/18 08:43 02/04/18 08:43 PT 11.1 SECONDS (9.7-12.2) 02/01/18 22:00 INR 1.0 02/01/18 22:00 APTT 33 SECONDS (21-34) 02/01/18 22:00 Attending/Attestation - Attestation I have personally seen and examined this patient.: Yes I have fully participated in the care of the patient.: Yes I have reviewed all pertinent clinical information, including history, physical exam and plan: Yes Notes (Text): 02/04/18 18:43 Patient was seen and examined at 8 AM Exam, assessment and plan were gone over with the resident. For OR today. Will need anticoagulation post op for DVT prophylaxis for 35 days: Lovenox [place] if this can be arranged by corporate operations compliance manager. Jonel Naik D.O.
[2018-02-04] MEDS ORDERED: Rocuronium 10 mg/ml (5 ml) ONE ×2 (10:54→13:52)
--- NOTE | 2018-02-04 11:19 | MRI ---
MRI right elbow History: Olecranon fracture. Comparison: 02/03/2018 CT of the elbow. Technique: Multi-echo multiplanar sequences were performed through the right elbow without the use of intravenous contrast. Findings: Markedly limited study as the patient is in fixed flexion. Prominent motion artifact. Again identified is a complex tripartite intra-articular fracture of the olecranon with butterfly fracture fragment noted. Large complex elbow joint effusion with a suggestion of some internal proteinaceous and/or hemorrhagic components. Remainder of the visualized osseous structures are grossly preserved. Increased signal seen within the distal triceps tendon at its insertion on posterior olecranon suggestive for partial tearing and or tendinopathy. Increased signal seen within the proximal attachments of the common extensor tendon suggestive for a moderate grade sprain. More prominent increased signal seen at the proximal attachment of common flexor tendon suggestive for partial tearing and or moderate grade sprain. Reactive edema and or increased signal seen within the adjacent flexor sided musculature. The collateral ligaments including the radial collateral, lateral ulnar collateral, and ulnar collateral ligaments were not optimally imaged on this study given the patient positioning and technique. The distal biceps and brachialis tendon insertions were not well imaged on this study. Impression: Markedly limited study as the patient is in fixed flexion. Prominent motion artifact. Again identified is a complex tripartite intra-articular fracture of the olecranon with butterfly fracture fragment noted. Large complex elbow joint effusion with a suggestion of some internal proteinaceous and/or hemorrhagic components. Remainder of the visualized osseous structures are grossly preserved. Increased signal seen within the distal triceps tendon at its insertion on posterior olecranon suggestive for partial tearing and or tendinopathy. Increased signal seen within the proximal attachments of the common extensor tendon suggestive for a moderate grade sprain. More prominent increased signal seen at the proximal attachment of common flexor tendon suggestive for partial tearing and or moderate grade sprain. Reactive edema and or increased signal seen within the adjacent flexor sided musculature. The collateral ligaments including the radial collateral, lateral ulnar collateral, and ulnar collateral ligaments were not optimally imaged on this study given the patient positioning and technique. The distal biceps and brachialis tendon insertions were not well imaged on this study.
[2018-02-04] MEDS ORDERED: ePHEDrine 50 mg/ml Inj ONE (12:24)
[2018-02-04] MEDS ORDERED: Bacitracin 500 Units/gm Oint Foilpak UD ONE (13:28)
[2018-02-04] MEDS ORDERED: Neostigmine Methylsulfate 3mg/3ml Syringe IV ONE (14:28)
[2018-02-04] MEDS ORDERED: Labetalol 25mg/5ml Syringe ONE (14:35)
[2018-02-04] MEDS ORDERED: Bupivacaine HCl 0.25% PF (30 ml) Inj ONE (15:12)
[2018-02-04] MEDS ORDERED: HYDROmorphone 0.5 mg/0.5 ml ISec IVP PRN (15:13)
--- NOTE | 2018-02-04 15:13 | RAD ---
PROCEDURE: Intraoperative Fluoroscopy. HISTORY: FX. RT. HIP FINDINGS: Fluoroscopic assistance was provided for open reduction internal fixation. Please refer to the operative report from DESHAUN Maldonado. Total fluoroscopic time (continuous mode) utilized during the procedure 29.4 (seconds). Total exam DLP: (mGy) 2.11
--- NOTE | 2018-02-04 15:20 | PCM.SURG1 ---
Surgeon's Initial Post Op Note - Surgeon's Notes Surgeon: Sb Bobby MD Fighting Vehicle Infantryman: Chrissie Becerra PA-C, CRNA Type of Anesthesia: General Endo Anesthesia Administered By: Dr. Bolton Pre-Operative Diagnosis: Right intertroch/basicervical hip fracture. Right olecranon fracture Operative Findings: Tourniquet RUE: 38min @250mmHg Post-Operative Diagnosis: same Operation Performed: 1. ORIF Right intertrochanteric fracture IM nailing. 2. ORIF Right olecranon fracture. 3. Interpretation of fluoroscopic imaging Specimen/Specimens Removed: none Estimated Blood Loss: EBL {In ML}: 55 Blood Products Given: N/A Drains Used: No Drains Post-Op Condition: Fair Date of Surgery/Procedure: 02/04/18 Time of Surgery/Procedure: 15:23
[2018-02-04] MEDS ORDERED: HYDROmorphone 0.5 mg/0.5 ml ISec ONE (15:24)
--- NOTE | 2018-02-04 16:04 | RAD ---
PROCEDURE: Intraoperative Fluoroscopy. HISTORY: RT ELBOW FX FINDINGS: Fluoroscopic assistance was provided for open reduction internal fixation.. Please refer to the operative report from DESHAUN Maldonado. Total fluoroscopic time (continuous mode) utilized during the procedure 5.0 (seconds). Total exam DLP: (mGy) 0.07
--- NOTE | 2018-02-04 16:24 | RAD ---
PROCEDURE: Radiographs of the right elbow. HISTORY: pt in pacu s/p ORIF COMPARISON: CT 02/03/2018 FINDINGS: BONES: The major olecranon fracture fragment with intra articular extension is transfixed by 2 pins and a posterior cerclage wire. JOINTS: Minimal concomitant osteoarthritis inferred. SOFT TISSUES: Overlying soft tissue swelling and partial casting JOINT EFFUSION: No radiographic evidence of joint effusion appreciated OTHER FINDINGS: Trace calcification and/or ossification bordering each medial lateral humeral epicondyles probably relates to calcific tendinopathy at these 2 sites. IMPRESSION: Intra operative fixation of the olecranon fracture as referenced above.
--- NOTE | 2018-02-04 17:28 | RAD ---
PROCEDURE: HISTORY: s/p hip nail, patient in PACU. COMPARISON: Preoperative examination 02/01/2018. TECHNIQUE: Standard protocol for this study/examination. FINDINGS: Satisfactory position of orthopedic hardware traversing previously identified impacted inter trochanteric fracture of the. Right femur, otherwise no interval change IMPRESSION: Satisfactory postoperative status.
[2018-02-04] MEDS: ceFAZolin 2 GM in Sodium Chloride 0.9% 100 ML IVPB SCH (19:07)
[2018-02-05] MEDS: ceFAZolin 2 GM in Sodium Chloride 0.9% 100 ML IVPB SCH (03:19)
[2018-02-05] MEDS: Morphine 4 MG/ML VIAL IVP PRN ×3 (03:21→12:45)
[2018-02-05] MEDS: Oxycodone/Acetaminophen 5/325 mg Tab PO PRN (05:25)
[2018-02-05 06:46] LABS: HEMOGLOBIN 10.6 g/dL (11.0-16.0); MEAN CELL VOLUME 87.2 fL (81.0-99.0); MEAN CORPUSCULAR HEMOGLOBIN 29.9 pg (27.0-31.0); MEAN CORPUSCULAR HGB CONC 34.3 g/dL (33.0-37.0); MEAN PLATELET VOLUME 9.7 fL (7.2-11.7); RBC 3.53 Mil/uL (3.80-5.20); RED CELL DISTRIBUTION WIDTH 13.3 % (11.5-14.5); WHITE BLOOD COUNT 9.3 K/uL (4.8-10.8)
[2018-02-05 06:57] LABS: BLOOD UREA NITROGEN 15 mg/dL (7-17); CALCIUM 8.5 mg/dl (8.6-10.4); GFR AFRICAN-AMERICAN > 60; GFR NON-AFRICAN AMERICAN > 60
[2018-02-05] MEDS: Sodium Chloride 0.9% 1,000 ML IV SCH (08:45)
[2018-02-05] MEDS: POLYETHYLENE GLYCOL 3350 17 GM/Dose PACKET PO SCH (10:21)
[2018-02-05] MEDS: Collagenase 250 Units/gm Ointment(30 gm) TOP SCH (10:22)
--- NOTE | 2018-02-05 10:26 | CP.PCM.PN ---
Subjective - Date & Time of Evaluation Date of Evaluation: 02/05/18 Time of Evaluation: 10:23 - Subjective Subjective: Patient complaining of pain in her right elbow, she says she has minimal pain in her right hip. Denies CP/SOB/dizziness/headache/n/v. Objective - Vital Signs/Intake and Output Vital Signs (last 24 hours): Temp Pulse Resp BP Pulse Ox 98.3 F 66 18 150/65 100 02/05/18 08:00 02/05/18 08:00 02/05/18 08:00 02/05/18 10:20 02/05/18 08:00 Intake and Output: 02/05/18 02/05/18 06:59 18:59 Intake Total 1740 Output Total 850 Balance 890 - Medications Medications: Current Medications Acetaminophen (Tylenol 325mg Tab) 650 mg PO Q6 PRN PRN Reason: Pain, Mild (1-3) Collagenase (Santyl) 0 gm TOP DAILY [facility] Last Admin: 02/05/18 10:22 Dose: 1 applic Docusate Sodium (Colace) 100 mg PO BID [facility] Last Admin: 02/05/18 10:21 Dose: 100 mg Enalapril Maleate (Vasotec) 40 mg PO DAILY [facility] Last Admin: 02/05/18 10:20 Dose: 40 mg Enoxaparin Sodium (Lovenox) 40 mg SC Q24H [facility] Ergocalciferol (Drisdol 50,000 Intl Units Cap) 1 cap PO Q7D [facility] Last Admin: 02/03/18 10:15 Dose: 1 cap Famotidine (Pepcid) 20 mg PO BID [facility] Last Admin: 02/05/18 10:20 Dose: 20 mg Hydralazine HCl (Apresoline) 10 mg IVP Q6H PRN PRN Reason: Systolic Blood Pressure Last Admin: 02/04/18 06:30 Dose: 10 mg Sodium Chloride (Sodium Chloride 0.9%) 1,000 mls @ 75 mls/hr IV .[id number] [facility] Last Admin: 02/05/18 08:45 Dose: 75 mls/hr Morphine Sulfate (Morphine) 2 mg IVP Q4H PRN PRN Reason: Pain, severe (8-10) Last Admin: 02/05/18 08:43 Dose: 2 mg Mupirocin (Bactroban Ointment) 0 gm TOP DAILY [facility] Last Admin: 02/05/18 10:23 Dose: 1 applic Ondansetron HCl (Zofran Inj) 4 mg IVP Q6 PRN PRN Reason: Nausea/Vomiting Last Admin: 02/04/18 18:08 Dose: 4 mg Polyethylene Glycol (Miralax) 17 gm PO DAILY [facility] Last Admin: 02/05/18 10:21 Dose: 17 gm - Labs Labs: 02/05/18 06:30 02/05/18 06:30 PT 11.1 SECONDS (9.7-12.2) 02/01/18 22:00 INR 1.0 02/01/18 22:00 APTT 33 SECONDS (21-34) 02/01/18 22:00 - Extremities Exam Additional comments: RUE: +rom fingers/wrist flex/ext, sensation intact to rad/med/ulnar n, cap reil < 2 sec, fingers warm Right thigh: swollen, soft, dressing intact, +ROM ankle/toes, sensation intact, calves soft NT neghomans Assessment and Plan (1) Closed fracture of olecranon process of right ulna Assessment & Plan: POD#1 s/p right olecranon ORIF, right hip ORIF IM nailing -PT/OT -VTE proph, d/w Dr. Naik, will plan for conversion to PO anticoagulant for VTE proph upon d/c d/c planning to home when stable from PT perspective labs reviewed, labs in am d/w Dr. Louis, agrees with above Status: Acute (2) Closed intertrochanteric fracture of right femur Status: Acute (3) Vitamin D deficiency Status: Chronic
--- NOTE | 2018-02-05 11:35 | CP.PCM.PN ---
<Yaritza Mckeon - Last Filed: 02/05/18 11:30> Subjective - Date & Time of Evaluation Date of Evaluation: 02/05/18 Time of Evaluation: 07:00 - Subjective Subjective: Medicine Note for Hospitalist Service- Dr. Jonel Naik Patient was seen and examined at bedside. Patient is s/p ORIF elbow, ORIF right hip. She is tolerating diet, ambulating with PT. Denied fever, chills, headaches , chest pain, shortness of breath, abdominal pain, n/v/d/c, or urinary symptoms. Objective - Vital Signs/Intake and Output Vital Signs (last 24 hours): Temp Pulse Resp BP Pulse Ox 98.3 F 66 18 150/65 100 02/05/18 08:00 02/05/18 08:00 02/05/18 08:00 02/05/18 10:20 02/05/18 08:00 Intake and Output: 02/05/18 02/05/18 06:59 18:59 Intake Total 1740 Output Total 850 Balance 890 - Medications Medications: Current Medications Acetaminophen (Tylenol 325mg Tab) 650 mg PO Q6 PRN PRN Reason: Pain, Mild (1-3) Collagenase (Santyl) 0 gm TOP DAILY [facility] Last Admin: 02/05/18 10:22 Dose: 1 applic Docusate Sodium (Colace) 100 mg PO BID [facility] Last Admin: 02/05/18 10:21 Dose: 100 mg Enalapril Maleate (Vasotec) 40 mg PO DAILY [facility] Last Admin: 02/05/18 10:20 Dose: 40 mg Enoxaparin Sodium (Lovenox) 40 mg SC Q24H [facility] Ergocalciferol (Drisdol 50,000 Intl Units Cap) 1 cap PO Q7D [facility] Last Admin: 02/03/18 10:15 Dose: 1 cap Famotidine (Pepcid) 20 mg PO BID [facility] Last Admin: 02/05/18 10:20 Dose: 20 mg Hydralazine HCl (Apresoline) 10 mg IVP Q6H PRN PRN Reason: Systolic Blood Pressure Last Admin: 02/04/18 06:30 Dose: 10 mg Morphine Sulfate (Morphine) 2 mg IVP Q4H PRN PRN Reason: Pain, severe (8-10) Last Admin: 02/05/18 08:43 Dose: 2 mg Mupirocin (Bactroban Ointment) 0 gm TOP DAILY [facility] Last Admin: 02/05/18 10:23 Dose: 1 applic Ondansetron HCl (Zofran Inj) 4 mg IVP Q6 PRN PRN Reason: Nausea/Vomiting Last Admin: 02/04/18 18:08 Dose: 4 mg Polyethylene Glycol (Miralax) 17 gm PO DAILY [facility] Last Admin: 02/05/18 10:21 Dose: 17 gm - Labs Labs: 02/05/18 06:30 02/05/18 06:30 PT 11.1 SECONDS (9.7-12.2) 02/01/18 22:00 INR 1.0 02/01/18 22:00 APTT 33 SECONDS (21-34) 02/01/18 22:00 - Additional Findings Additional findings: - Head Exam Additional comments: - Constitutional Appears: No Acute Distress - Head Exam Head Exam: NORMAL INSPECTION, NORMOCEPHALIC - Eye Exam Eye Exam: EOMI, Normal appearance, PERRL - ENT Exam ENT Exam: Mucous Membranes Moist - Respiratory Exam Respiratory Exam: Clear to Ausculation Bilateral, NORMAL BREATHING PATTERN - Cardiovascular Exam Cardiovascular Exam: REGULAR RHYTHM, RRR, +S1, +S2 - GI/Abdominal Exam GI & Abdominal Exam: Soft, nontender, surgical site clean, dry, some eschar noted mildine, no pus, no drainage, no erythema, no evidence of cellulitis overal healing well. placed clean, NONadhesive dressing to site ), Normal Bowel Sounds - Extremities Exam Extremities Exam: Normal Inspection. RUE: +rom fingers/wrist flex/ext, sensation intact to rad/med/ulnar n, cap reil < 2 sec, fingers warm Right thigh: swollen, soft, dressing intact, +ROM ankle/toes, sensation intact, calves soft NT neghomans absent: Pedal Edema, Tenderness - Neurological Exam Neurological Exam: Alert, Awake, Oriented x3 - Psychiatric Exam Psychiatric exam: Normal Affect, Normal Mood - Skin Skin Exam: Dry, Intact, Normal Color, Warm Assessment and Plan - Assessment and Plan (Free Text) Assessment: 82 year old female with past medical history of HTN, osteoporosis, diverticulitis, S/P Ventral hernia repair with bowel resection 08/2017 (wound approximating, healing well) is admitted for right hip fracture and right olecranon fractures as seen on x rays, nondisplaced right hip fracture confirmed on CT Scan. ORIF elbow, ORIF left hip with Dr. Bobby on 02/04/18. Plan: Nondisplaced Right Hip Fracture S/P ORIF Right hip with Dr. Bobby on 02/04/18 - Orthopedics, Dr. Bobby is consulted Imaging: - Hip CT: Nondisplaced intertrochanteric fracture of the right hip with mild impaction. - Hip/ Pelvis Xray: Impacted fracture right femoral neck without dislocation. Degenerative changes are seen the bilateral sacroiliac and right hip joints. Diffuse osteopenia suggests osteoporosis. Prior left partial head replacement identified. - Elbow Xray: Comminuted nondisplaced fracture proximal right ulna through the olecranon process with extensive overlying soft tissue edema throughout the dorsal elbow soft tissues. No dislocation. Management: - Pain management with tylenol, percocet, morphine PRN - Zofran prn Medical Clearance: - EKG: NSR @ 65 BPM, NAD, no ST changes - CXR : NAD, Linear atelectatic changes at left lung base with associated elevated left hemidiaphragm. Emphysematous changes. Upper lobe granulomatous changes. Right hilar prominence. Additional mild linear atelectasis at the right lung base. Tortuous aorta. - Labs - cbc, cmp, and coags - WNL - ECHO - LVEF 71 % - Detsky's criteria: Patient is low-medium risk individual for Class I 6% complications - Patient is medically optimized for surgery - Orthopedics and anesthesia to discuss risks and benefits prior to procedure respectively - S/P OR for ORIF elbow, ORIF Right hip with Dr. Bobby on 02/04/18 Olecranon fracture S/P ORIF elbow on 02/04/18 - Orthopedics, Dr. Bobby is consulted - CT Right Upper Extremity: Comminuted minimally displaced intra-articular olecranon fracture - OR for ORIF elbow, ORIF vs THR hip with Dr. Bobby on 02/04/18 HTN - Will start home medication enalapril 40mg PO daily - Hydralazine 10mg IVP Q6H PRN for SBP > 160 mmHg, HR <60 - Patient is on fluids this will also increase BP - ECHO - LVEF 71 % S/P Ventral hernia repair with bowel resection 08/2017 - Wound approximating, healing well - Will continue with dressings - Continue to monitor site Prophylaxis - GI: Pepcid - DVT: SCDs, Lovenox - may need to transition to Eliquis when discharge (if unable to provided lovenox [place]) to complete total 35 days of VTE s/p orthopedic surgery. (started 02/05/18 + 35 days) - PT/OT Disposition: Due to lack of insurance, pending clearance with PT for [place] to discharge home with platform walker. May need to transition to Eliquis when discharge (if unable to provided lovenox [place]) to complete total 35 days of VTE s/ p orthopedic surgery. (started 02/05/18 + 35 days) ADRIAN Naik, Yaritza Mckeon DO, PGY-1 <Jonel Naik J - Last Filed: 02/05/18 19:10> Objective - Vital Signs/Intake and Output Vital Signs (last 24 hours): Temp Pulse Resp BP Pulse Ox 98.1 F 62 20 125/58 L 96 02/05/18 15:10 02/05/18 15:10 02/05/18 15:10 02/05/18 15:10 02/05/18 15:10 Intake and Output: 02/05/18 02/05/18 06:59 18:59 Intake Total 1740 375 Output Total 850 500 Balance 890 -125 - Medications Medications: Current Medications Acetaminophen (Tylenol 325mg Tab) 650 mg PO Q6 PRN PRN Reason: Pain, Mild (1-3) Collagenase (Santyl) 0 gm TOP DAILY [facility] Last Admin: 02/05/18 10:22 Dose: 1 applic Docusate Sodium (Colace) 100 mg PO BID [facility] Last Admin: 02/05/18 17:32 Dose: 100 mg Enalapril Maleate (Vasotec) 40 mg PO DAILY [facility] Last Admin: 02/05/18 10:20 Dose: 40 mg Enoxaparin Sodium (Lovenox) 40 mg SC Q24H [facility] Last Admin: 02/05/18 13:13 Dose: 40 mg Ergocalciferol (Drisdol 50,000 Intl Units Cap) 1 cap PO Q7D [facility] Last Admin: 02/03/18 10:15 Dose: 1 cap Famotidine (Pepcid) 20 mg PO BID [facility] Last Admin: 02/05/18 17:32 Dose: 20 mg Hydralazine HCl (Apresoline) 10 mg IVP Q6H PRN PRN Reason: Systolic Blood Pressure Last Admin: 02/04/18 06:30 Dose: 10 mg Morphine Sulfate (Morphine) 2 mg IVP Q4H PRN PRN Reason: Pain, severe (8-10) Last Admin: 02/05/18 12:45 Dose: 2 mg Mupirocin (Bactroban Ointment) 0 gm TOP DAILY [facility] Last Admin: 02/05/18 10:23 Dose: 1 applic Ondansetron HCl (Zofran Inj) 4 mg IVP Q6 PRN PRN Reason: Nausea/Vomiting Last Admin: 02/04/18 18:08 Dose: 4 mg Polyethylene Glycol (Miralax) 17 gm PO DAILY [facility] Last Admin: 02/05/18 10:21 Dose: 17 gm - Labs Labs: 02/05/18 06:30 02/05/18 06:30 PT 11.1 SECONDS (9.7-12.2) 02/01/18 22:00 INR 1.0 02/01/18 22:00 APTT 33 SECONDS (21-34) 02/01/18 22:00 Attending/Attestation - Attestation I have personally seen and examined this patient.: Yes I have fully participated in the care of the patient.: Yes I have reviewed all pertinent clinical information, including history, physical exam and plan: Yes Notes (Text): 02/05/18 19:04 Patient was seen and examined shortly after resident. Exam, assessment and plan were gone over with the resident. Eulalio Rhonda ([phone]) was at bedside and I demonstrated the application of [employer] to the Ventral Abdominal Surgical Wound. Spoke with with [facility] and they are aware that we will need clearance from PT prior to discharge as patient is uninsured. She will need to be able to use [employer] the Platform Walker, rx for which was provided to patient case coordinator Beverly. Spoke with Orthopedics SINDY Godoy and explained that if we were not able to provide Lovenox for DVT prophylaxis for total of 35 days post op, then we have samples of Eliquis that we can provide to patient for same time period. She will get back to me after speaking with Dr. Graf to make sure that this is ok with him. Jonel Naik D.O.
[2018-02-05] MEDS: Enoxaparin 40 mg Syringe SC SCH (13:13)
--- NOTE | 2018-02-05 17:18 | CARD ---
APPROVED REPORT EKG Measurement Heart [id number] MI [id number] <Conclusion> Sinus bradycardia T wave abnormality, consider anterolateral ischemia Prolonged QT Abnormal ECG
--- NOTE | 2018-02-05 17:25 | CARD ---
APPROVED REPORT EKG Measurement Heart [id number] [id number] <Conclusion> Normal sinus rhythm Normal ECG
--- NOTE | 2018-02-05 20:30 | CP.PCM.PN ---
<Mariel Han SandrineSheila - Last Filed: 02/06/18 06:07> Subjective - Date & Time of Evaluation Date of Evaluation: 02/06/18 Time of Evaluation: 06:00 - Subjective Subjective: Medicine Progress Note: Patient was seen and examined at bedside in the AM. Patient states she continues to have pain on her right arm. Patient states she has not had a bowel movement since Thursday but she states she is passing flatus. Objective - Vital Signs/Intake and Output Vital Signs (last 24 hours): Temp Pulse Resp BP Pulse Ox 98.1 F 62 20 125/58 L 96 02/05/18 15:10 02/05/18 15:10 02/05/18 15:10 02/05/18 15:10 02/05/18 15:10 Intake and Output: 02/05/18 02/06/18 18:59 06:59 Intake Total 375 Output Total 500 Balance -125 - Medications Medications: Current Medications Acetaminophen (Tylenol 325mg Tab) 650 mg PO Q6 PRN PRN Reason: Pain, Mild (1-3) Collagenase (Santyl) 0 gm TOP DAILY [facility] Last Admin: 02/05/18 10:22 Dose: 1 applic Docusate Sodium (Colace) 100 mg PO BID [facility] Last Admin: 02/05/18 17:32 Dose: 100 mg Enalapril Maleate (Vasotec) 40 mg PO DAILY [facility] Last Admin: 02/05/18 10:20 Dose: 40 mg Enoxaparin Sodium (Lovenox) 40 mg SC Q24H [facility] Last Admin: 02/05/18 13:13 Dose: 40 mg Ergocalciferol (Drisdol 50,000 Intl Units Cap) 1 cap PO Q7D [facility] Last Admin: 02/03/18 10:15 Dose: 1 cap Famotidine (Pepcid) 20 mg PO BID [facility] Last Admin: 02/05/18 17:32 Dose: 20 mg Hydralazine HCl (Apresoline) 10 mg IVP Q6H PRN PRN Reason: Systolic Blood Pressure Last Admin: 02/04/18 06:30 Dose: 10 mg Morphine Sulfate (Morphine) 2 mg IVP Q4H PRN PRN Reason: Pain, severe (8-10) Last Admin: 02/05/18 12:45 Dose: 2 mg Mupirocin (Bactroban Ointment) 0 gm TOP DAILY [facility] Last Admin: 02/05/18 10:23 Dose: 1 applic Ondansetron HCl (Zofran Inj) 4 mg IVP Q6 PRN PRN Reason: Nausea/Vomiting Last Admin: 02/04/18 18:08 Dose: 4 mg Polyethylene Glycol (Miralax) 17 gm PO DAILY [facility] Last Admin: 02/05/18 10:21 Dose: 17 gm - Labs Labs: 02/05/18 06:30 02/05/18 06:30 PT 11.1 SECONDS (9.7-12.2) 02/01/18 22:00 INR 1.0 02/01/18 22:00 APTT 33 SECONDS (21-34) 02/01/18 22:00 - Constitutional Appears: No Acute Distress - Head Exam Head Exam: ATRAUMATIC, NORMAL INSPECTION - Eye Exam Eye Exam: EOMI, Normal appearance - ENT Exam ENT Exam: Mucous Membranes Moist - Respiratory Exam Respiratory Exam: Clear to Ausculation Bilateral, NORMAL BREATHING PATTERN - Cardiovascular Exam Cardiovascular Exam: REGULAR RHYTHM, RRR, +S1, +S2 - GI/Abdominal Exam GI & Abdominal Exam: Soft, Normal Bowel Sounds. absent: Tenderness Additional comments: surgical site clean, dry, some eschar noted mildine, no pus, no drainage, no erythema, no evidence of cellulitis. Clean/dry/intact - Back Exam Additional comments: RUE: +rom fingers/wrist flex/ext, sensation intact to rad/med/ulnar n, cap reil < 2 sec, fingers warm - Neurological Exam Neurological Exam: Alert, Awake, Oriented x3 - Psychiatric Exam Psychiatric exam: Normal Affect, Normal Mood - Skin Skin Exam: Normal Color Assessment and Plan - Assessment and Plan (Free Text) Assessment: Nondisplaced Right Hip Fracture S/P ORIF Right hip with Dr. Bobby on 02/04/18 - Orthopedics, Dr. Bobby is consulted Imaging: - Hip CT: Nondisplaced intertrochanteric fracture of the right hip with mild impaction. - Hip/ Pelvis Xray: Impacted fracture right femoral neck without dislocation. Degenerative changes are seen the bilateral sacroiliac and right hip joints. Diffuse osteopenia suggests osteoporosis. Prior left partial head replacement identified. - Elbow Xray: Comminuted nondisplaced fracture proximal right ulna through the olecranon process with extensive overlying soft tissue edema throughout the dorsal elbow soft tissues. No dislocation. Management: - Pain management with tylenol, percocet, morphine PRN - Zofran prn Medical Clearance: - EKG: NSR @ 65 BPM, NAD, no ST changes - CXR : NAD, Linear atelectatic changes at left lung base with associated elevated left hemidiaphragm. Emphysematous changes. Upper lobe granulomatous changes. Right hilar prominence. Additional mild linear atelectasis at the right lung base. Tortuous aorta. - Labs - cbc, cmp, and coags - WNL - ECHO - LVEF 71 % - Detsky's criteria: Patient is low-medium risk individual for Class I 6% complications - Patient is medically optimized for surgery - Orthopedics and anesthesia to discuss risks and benefits prior to procedure respectively - S/P OR for ORIF elbow, ORIF Right hip with Dr. Bobby on 02/04/18 Olecranon fracture S/P ORIF elbow on 02/04/18 - Orthopedics, Dr. Bobby is consulted - CT Right Upper Extremity: Comminuted minimally displaced intra-articular olecranon fracture - OR for ORIF elbow, ORIF vs THR hip with Dr. Bobby on 02/04/18 HTN - Will start home medication enalapril 40mg PO daily - Hydralazine 10mg IVP Q6H PRN for SBP > 160 mmHg, HR <60 - Patient is on fluids this will also increase BP - ECHO - LVEF 71 % S/P Ventral hernia repair with bowel resection 08/2017 - Wound approximating, healing well - Will continue with dressings - Continue to monitor site Prophylaxis - GI: Pepcid - DVT: SCDs, Lovenox - may need to transition to Eliquis when discharge (if unable to provided lovenox [place]) to complete total 35 days of VTE s/p orthopedic surgery. (started 02/05/18 + 35 days) - PT/OT Disposition: Due to lack of insurance, pending clearance with PT for [place] to discharge home with platform walker. May need to transition to Eliquis when discharge (if unable to provided lovenox [place]) to complete total 35 days of VTE s/ p orthopedic surgery. (started 02/05/18 + 35 days) <Jonel Naik - Last Filed: 02/06/18 19:04> Objective - Vital Signs/Intake and Output Vital Signs (last 24 hours): Temp Pulse Resp BP Pulse Ox 98.4 F 74 20 129/65 99 02/06/18 15:47 02/06/18 15:47 02/06/18 15:47 02/06/18 15:47 02/06/18 15:47 Intake and Output: 02/06/18 02/07/18 18:59 06:59 Intake Total 480 Output Total 800 Balance -320 - Medications Medications: Current Medications Acetaminophen (Tylenol 325mg Tab) 650 mg PO Q6 PRN PRN Reason: Pain, Mild (1-3) Collagenase (Santyl) 0 gm TOP DAILY [facility] Last Admin: 02/06/18 09:19 Dose: 1 applic Docusate Sodium (Colace) 100 mg PO BID [facility] Last Admin: 02/06/18 17:33 Dose: 100 mg Enalapril Maleate (Vasotec) 40 mg PO DAILY [facility] Last Admin: 02/05/18 10:20 Dose: 40 mg Enoxaparin Sodium (Lovenox) 40 mg SC Q24H [facility] Last Admin: 02/06/18 13:21 Dose: 40 mg Ergocalciferol (Drisdol 50,000 Intl Units Cap) 1 cap PO Q7D [facility] Last Admin: 02/03/18 10:15 Dose: 1 cap Famotidine (Pepcid) 20 mg PO BID [facility] Last Admin: 02/06/18 17:33 Dose: 20 mg Hydralazine HCl (Apresoline) 10 mg IVP Q6H PRN PRN Reason: Systolic Blood Pressure Last Admin: 02/06/18 07:11 Dose: 10 mg Morphine Sulfate (Morphine) 2 mg IVP Q4H PRN PRN Reason: Pain, severe (8-10) Last Admin: 02/06/18 15:21 Dose: 2 mg Mupirocin (Bactroban Ointment) 0 gm TOP DAILY [facility] Last Admin: 02/06/18 09:19 Dose: 1 applic Ondansetron HCl (Zofran Inj) 4 mg IVP Q6 PRN PRN Reason: Nausea/Vomiting Last Admin: 02/04/18 18:08 Dose: 4 mg Polyethylene Glycol (Miralax) 17 gm PO DAILY [facility] Last Admin: 02/06/18 09:19 Dose: 17 gm - Labs Labs: 02/06/18 07:42 02/06/18 07:42 PT 11.1 SECONDS (9.7-12.2) 02/01/18 22:00 INR 1.0 02/01/18 22:00 APTT 33 SECONDS (21-34) 02/01/18 22:00 Attending/Attestation - Attestation I have personally seen and examined this patient.: Yes I have fully participated in the care of the patient.: Yes I have reviewed all pertinent clinical information, including history, physical exam and plan: Yes Notes (Text): 02/06/18 19:02 Patient was seen and examined at 12:15 PM Abdominal wound dressing is being changed daily with the application with Janiya. Jonel Naik D.O.
[2018-02-05] MEDS ORDERED: Oxycodone/Acetaminophen 5/325 mg Tab PO ONE (21:01)
[2018-02-06] MEDS: Morphine 4 MG/ML VIAL IVP PRN ×2 (07:30→15:21)
[2018-02-06 07:53] LABS: BASO # 0.1 K/uL (0.0-0.2); EOS # 0.1 K/uL (0.0-0.7); HEMOGLOBIN 11.4 g/dL (11.0-16.0); LYMPH # 1.6 K/uL (1.0-4.3); LYMPH % 20.6 % (20.0-40.0); MEAN CELL VOLUME 87.9 fL (81.0-99.0); MEAN CORPUSCULAR HEMOGLOBIN 29.5 pg (27.0-31.0); MEAN CORPUSCULAR HGB CONC 33.6 g/dL (33.0-37.0); MEAN PLATELET VOLUME 8.9 fL (7.2-11.7); MONO # 0.7 K/uL (0.0-0.8); MONO % 8.9 % (0.0-10.0); NEUT # 5.4 K/uL (1.8-7.0); NEUT % 68.5 % (50.0-75.0); RBC 3.84 Mil/uL (3.80-5.20); RED CELL DISTRIBUTION WIDTH 13.5 % (11.5-14.5); WHITE BLOOD COUNT 7.9 K/uL (4.8-10.8)
[2018-02-06 08:21] LABS: ALBUMIN 3.3 g/dL (3.5-5.0); ALT/SGPT 16 U/L (9-52); AST/SGOT 26 U/L (14-36); BLOOD UREA NITROGEN 14 mg/dL (7-17); GFR AFRICAN-AMERICAN > 60; GFR NON-AFRICAN AMERICAN > 60
[2018-02-06] MEDS: Collagenase 250 Units/gm Ointment(30 gm) TOP SCH (09:19)
[2018-02-06] MEDS: POLYETHYLENE GLYCOL 3350 17 GM/Dose PACKET PO SCH (09:19)
[2018-02-06] MEDS: Enoxaparin 40 mg Syringe SC SCH (13:21)
--- NOTE | 2018-02-06 22:25 | CP.PCM.PN ---
<Mariel Han - Last Filed: 02/07/18 07:14> Subjective - Date & Time of Evaluation Date of Evaluation: 02/07/18 Time of Evaluation: 06:00 - Subjective Subjective: Medicine Progress Note: Patient was seen and examined at bedside in the AM. Patient states she just had pain medication for her arm so her pain feels better. Objective - Vital Signs/Intake and Output Vital Signs (last 24 hours): Temp Pulse Resp BP Pulse Ox 98.4 F 74 20 129/65 99 02/06/18 15:47 02/06/18 15:47 02/06/18 15:47 02/06/18 15:47 02/06/18 15:47 Intake and Output: 02/06/18 02/07/18 18:59 06:59 Intake Total 480 400 Output Total 800 600 Balance -320 -200 - Medications Medications: Current Medications Acetaminophen (Tylenol 325mg Tab) 650 mg PO Q6 PRN PRN Reason: Pain, Mild (1-3) Collagenase (Santyl) 0 gm TOP DAILY [facility] Last Admin: 02/06/18 09:19 Dose: 1 applic Docusate Sodium (Colace) 100 mg PO BID [facility] Last Admin: 02/06/18 17:33 Dose: 100 mg Enalapril Maleate (Vasotec) 40 mg PO DAILY [facility] Last Admin: 02/05/18 10:20 Dose: 40 mg Enoxaparin Sodium (Lovenox) 40 mg SC Q24H [facility] Last Admin: 02/06/18 13:21 Dose: 40 mg Ergocalciferol (Drisdol 50,000 Intl Units Cap) 1 cap PO Q7D [facility] Last Admin: 02/03/18 10:15 Dose: 1 cap Famotidine (Pepcid) 20 mg PO BID [facility] Last Admin: 02/06/18 17:33 Dose: 20 mg Hydralazine HCl (Apresoline) 10 mg IVP Q6H PRN PRN Reason: Systolic Blood Pressure Last Admin: 02/06/18 07:11 Dose: 10 mg Morphine Sulfate (Morphine) 2 mg IVP Q4H PRN PRN Reason: Pain, severe (8-10) Last Admin: 02/06/18 15:21 Dose: 2 mg Mupirocin (Bactroban Ointment) 0 gm TOP DAILY [facility] Last Admin: 02/06/18 09:19 Dose: 1 applic Ondansetron HCl (Zofran Inj) 4 mg IVP Q6 PRN PRN Reason: Nausea/Vomiting Last Admin: 02/04/18 18:08 Dose: 4 mg Polyethylene Glycol (Miralax) 17 gm PO DAILY [facility] Last Admin: 02/06/18 09:19 Dose: 17 gm - Labs Labs: 02/06/18 07:42 02/06/18 07:42 PT 11.1 SECONDS (9.7-12.2) 02/01/18 22:00 INR 1.0 02/01/18 22:00 APTT 33 SECONDS (21-34) 02/01/18 22:00 - Constitutional Appears: No Acute Distress - Head Exam Head Exam: ATRAUMATIC, NORMAL INSPECTION - Eye Exam Eye Exam: EOMI, Normal appearance - ENT Exam ENT Exam: Mucous Membranes Moist - Respiratory Exam Respiratory Exam: Clear to Ausculation Bilateral, NORMAL BREATHING PATTERN - Cardiovascular Exam Cardiovascular Exam: REGULAR RHYTHM, +S1, +S2 - GI/Abdominal Exam GI & Abdominal Exam: Soft, Normal Bowel Sounds. absent: Tenderness Additional comments: surgical site clean, dry, some eschar noted mildine, no pus, no drainage, no erythema, no evidence of cellulitis. Clean/dry/intact - Extremities Exam Additional comments: RUE: +rom fingers/wrist flex/ext, sensation intact to rad/med/ulnar n, cap reil < 2 sec, fingers warm - Neurological Exam Neurological Exam: Alert, Awake, Oriented x3 - Psychiatric Exam Psychiatric exam: Normal Affect, Normal Mood - Skin Skin Exam: Dry, Intact, Normal Color Assessment and Plan - Assessment and Plan (Free Text) Assessment: Nondisplaced Right Hip Fracture S/P ORIF Right hip with Dr. Bobby on 02/04/18 - Orthopedics, Dr. Bobby is consulted Imaging: - Hip CT: Nondisplaced intertrochanteric fracture of the right hip with mild impaction. - Hip/ Pelvis Xray: Impacted fracture right femoral neck without dislocation. Degenerative changes are seen the bilateral sacroiliac and right hip joints. Diffuse osteopenia suggests osteoporosis. Prior left partial head replacement identified. - Elbow Xray: Comminuted nondisplaced fracture proximal right ulna through the olecranon process with extensive overlying soft tissue edema throughout the dorsal elbow soft tissues. No dislocation. Management: - Pain management with tylenol, percocet, morphine PRN - Zofran prn Medical Clearance: - EKG: NSR @ 65 BPM, NAD, no ST changes - CXR : NAD, Linear atelectatic changes at left lung base with associated elevated left hemidiaphragm. Emphysematous changes. Upper lobe granulomatous changes. Right hilar prominence. Additional mild linear atelectasis at the right lung base. Tortuous aorta. - Labs - cbc, cmp, and coags - WNL - ECHO - LVEF 71 % - Detsky's criteria: Patient is low-medium risk individual for Class I 6% complications - Patient is medically optimized for surgery - Orthopedics and anesthesia to discuss risks and benefits prior to procedure respectively - S/P OR for ORIF elbow, ORIF Right hip with Dr. Bobby on 02/04/18 Olecranon fracture S/P ORIF elbow on 02/04/18 - Orthopedics, Dr. Bobby is consulted - CT Right Upper Extremity: Comminuted minimally displaced intra-articular olecranon fracture - OR for ORIF elbow, ORIF vs THR hip with Dr. Bobby on 02/04/18 HTN - Will start home medication enalapril 40mg PO daily - Hydralazine 10mg IVP Q6H PRN for SBP > 160 mmHg, HR <60 - Patient is on fluids this will also increase BP - ECHO - LVEF 71 % S/P Ventral hernia repair with bowel resection 08/2017 - Wound approximating, healing well - Will continue with medi honey and dressings change daily - Continue to monitor site Prophylaxis - GI: Pepcid - DVT: SCDs, Lovenox - may need to transition to Eliquis when discharge (if unable to provided lovenox SC) to complete total 35 days of VTE s/p orthopedic surgery. (started 02/05/18 + 35 days) - PT/OT Disposition: Due to lack of insurance, pending clearance with PT for [place] to discharge home with platform walker. May need to transition to Eliquis when discharge (if unable to provided lovenox SC) to complete total 35 days of VTE s/ p orthopedic surgery. (started 02/05/18 + 35 days) <Jonel Naik - Last Filed: 02/07/18 22:33> Objective - Vital Signs/Intake and Output Vital Signs (last 24 hours): Temp Pulse Resp BP Pulse Ox 98.5 F 66 20 167/71 H 97 02/07/18 15:00 02/07/18 15:00 02/07/18 15:00 02/07/18 15:00 02/07/18 15:00 Intake and Output: 02/07/18 02/08/18 18:59 06:59 Intake Total 200 Output Total 300 Balance -100 - Medications Medications: Current Medications Acetaminophen (Tylenol 325mg Tab) 650 mg PO Q6 PRN PRN Reason: Pain, Mild (1-3) Collagenase (Santyl) 0 gm TOP DAILY [facility] Last Admin: 02/07/18 09:25 Dose: 1 applic Docusate Sodium (Colace) 100 mg PO BID [facility] Last Admin: 02/07/18 17:37 Dose: 100 mg Enalapril Maleate (Vasotec) 40 mg PO DAILY [facility] Last Admin: 02/07/18 09:24 Dose: 40 mg Enoxaparin Sodium (Lovenox) 40 mg SC Q24H [facility] Last Admin: 02/07/18 13:33 Dose: 40 mg Ergocalciferol (Drisdol 50,000 Intl Units Cap) 1 cap PO Q7D [facility] Last Admin: 02/03/18 10:15 Dose: 1 cap Famotidine (Pepcid) 20 mg PO BID [facility] Last Admin: 02/07/18 17:37 Dose: 20 mg Hydralazine HCl (Apresoline) 10 mg IVP Q6H PRN PRN Reason: Systolic Blood Pressure Last Admin: 02/06/18 07:11 Dose: 10 mg Mupirocin (Bactroban Ointment) 0 gm TOP DAILY [facility] Last Admin: 02/07/18 09:25 Dose: 1 applic Ondansetron HCl (Zofran Inj) 4 mg IVP Q6 PRN PRN Reason: Nausea/Vomiting Last Admin: 02/04/18 18:08 Dose: 4 mg Oxycodone/Acetaminophen (Percocet 5/325 Mg Tab) 1 tab PO Q6H PRN PRN Reason: Pain, severe (8-10) Stop: 02/10/18 13:53 Polyethylene Glycol (Miralax) 17 gm PO DAILY [facility] Last Admin: 02/07/18 09:25 Dose: 17 gm - Labs Labs: 02/07/18 07:43 02/07/18 07:43 PT 11.1 SECONDS (9.7-12.2) 02/01/18 22:00 INR 1.0 02/01/18 22:00 APTT 33 SECONDS (21-34) 02/01/18 22:00 Attending/Attestation - Attestation I have personally seen and examined this patient.: Yes I have fully participated in the care of the patient.: Yes I have reviewed all pertinent clinical information, including history, physical exam and plan: Yes Notes (Text): 02/07/18 22:26 Patient was seen and examine at 2 PM Exam, assessment and plan were gone over with the resident. Also on ROS: She moved her bowels today and they were soft. Her Morphine was discontinued. She is now on Percocet 5/325 mg PO Q6H PRN Severe Pain Eulalio Ellis ([phone]) was at bedside and I again demonstrated the application of Medihoney to the Ventral Abdominal Surgical Wound. He was provided with samples of MediHoney. Spoke with with PT [facility] 02/05/18 and they are aware that we will need clearance from PT prior to discharge as patient is uninsured. She will need to be able to use safely the Platform Walker, rx for which was provided to case advocate Beverly on 02/05/18. Spoke with Orthopedics SINDY Godoy 02/05/18 and explained that if we were not able to provide Lovenox for DVT prophylaxis for total of 35 days post op, then we have samples of Eliquis that we can provide to patient for same time period. Medicine Team please reach out to her to make sure Eliquis 2.5 mg PO 2x/ day is ok with Orthopedics. Jonel Naik D.O.
[2018-02-07 07:59] LABS: BASO # 0.1 K/uL (0.0-0.2); BASO % 1.1 % (0.0-2.0); EOS # 0.1 K/uL (0.0-0.7); EOS % 0.8 % (0.0-4.0); LYMPH # 1.7 K/uL (1.0-4.3); LYMPH % 22.1 % (20.0-40.0); MEAN CELL VOLUME 86.7 fL (81.0-99.0); MEAN CORPUSCULAR HEMOGLOBIN 29.9 pg (27.0-31.0); MEAN CORPUSCULAR HGB CONC 34.5 g/dL (33.0-37.0); MONO # 0.7 K/uL (0.0-0.8); MONO % 9.3 % (0.0-10.0); NEUT % 66.7 % (50.0-75.0); RBC 3.69 Mil/uL (3.80-5.20); RED CELL DISTRIBUTION WIDTH 13.4 % (11.5-14.5); WHITE BLOOD COUNT 7.5 K/uL (4.8-10.8)
[2018-02-07 08:17] LABS: ALBUMIN 3.2 g/dL (3.5-5.0); ALT/SGPT 23 U/L (9-52); AST/SGOT 25 U/L (14-36); BLOOD UREA NITROGEN 17 mg/dL (7-17); CALCIUM 9.1 mg/dl (8.6-10.4); GFR AFRICAN-AMERICAN > 60; GFR NON-AFRICAN AMERICAN > 60
[2018-02-07] MEDS: Collagenase 250 Units/gm Ointment(30 gm) TOP SCH (09:25)
[2018-02-07] MEDS: POLYETHYLENE GLYCOL 3350 17 GM/Dose PACKET PO SCH (09:25)
--- NOTE | 2018-02-07 10:00 | CP.PCM.PN ---
Subjective - Date & Time of Evaluation Date of Evaluation: 02/07/18 Time of Evaluation: 09:55 - Subjective Subjective: s- PT WITH MINIMAL POST OP DISCOMFORT Objective - Vital Signs/Intake and Output Vital Signs (last 24 hours): Temp Pulse Resp BP Pulse Ox 98.7 F 64 20 152/69 H 96 02/07/18 07:10 02/07/18 07:10 02/07/18 07:10 02/07/18 09:24 02/07/18 07:10 Intake and Output: 02/07/18 02/07/18 06:59 18:59 Intake Total 400 Output Total 1300 Balance -900 - Medications Medications: Current Medications Acetaminophen (Tylenol 325mg Tab) 650 mg PO Q6 PRN PRN Reason: Pain, Mild (1-3) Collagenase (Santyl) 0 gm TOP DAILY [facility] Last Admin: 02/07/18 09:25 Dose: 1 applic Docusate Sodium (Colace) 100 mg PO BID [facility] Last Admin: 02/07/18 09:24 Dose: 100 mg Enalapril Maleate (Vasotec) 40 mg PO DAILY [facility] Last Admin: 02/07/18 09:24 Dose: 40 mg Enoxaparin Sodium (Lovenox) 40 mg SC Q24H [facility] Last Admin: 02/06/18 13:21 Dose: 40 mg Ergocalciferol (Drisdol 50,000 Intl Units Cap) 1 cap PO Q7D [facility] Last Admin: 02/03/18 10:15 Dose: 1 cap Famotidine (Pepcid) 20 mg PO BID [facility] Last Admin: 02/07/18 09:24 Dose: 20 mg Hydralazine HCl (Apresoline) 10 mg IVP Q6H PRN PRN Reason: Systolic Blood Pressure Last Admin: 02/06/18 07:11 Dose: 10 mg Morphine Sulfate (Morphine) 2 mg IVP Q4H PRN PRN Reason: Pain, severe (8-10) Last Admin: 02/06/18 15:21 Dose: 2 mg Mupirocin (Bactroban Ointment) 0 gm TOP DAILY [facility] Last Admin: 02/07/18 09:25 Dose: 1 applic Ondansetron HCl (Zofran Inj) 4 mg IVP Q6 PRN PRN Reason: Nausea/Vomiting Last Admin: 02/04/18 18:08 Dose: 4 mg Polyethylene Glycol (Miralax) 17 gm PO DAILY [facility] Last Admin: 02/07/18 09:25 Dose: 17 gm - Labs Labs: 02/07/18 07:43 02/07/18 07:43 PT 11.1 SECONDS (9.7-12.2) 02/01/18 22:00 INR 1.0 02/01/18 22:00 APTT 33 SECONDS (21-34) 02/01/18 22:00 - Additional Findings Additional findings: oBJ: SYSTEMIC- WNL [id number]: stance/gait- deferred R upper ext post splint R hip dressing intact Assessment and Plan - Assessment and Plan (Free Text) Assessment: A- slow progress s/p succsseful ORIF displafced R elbow fx/ s/p ORIF R intertrochanteric femur fx P- orthopedically stable pt orthopedically stable for d/c
[2018-02-07] MEDS: Enoxaparin 40 mg Syringe SC SCH (13:33)
[2018-02-07] MEDS: Oxycodone/Acetaminophen 5/325 mg Tab PO PRN (22:43)
[2018-02-08 07:34] LABS: BASO % 0.7 % (0.0-2.0); EOS # 0.1 K/uL (0.0-0.7); EOS % 2.5 % (0.0-4.0); HEMOGLOBIN 12.4 g/dL (11.0-16.0); LYMPH # 1.8 K/uL (1.0-4.3); LYMPH % 31.3 % (20.0-40.0); MEAN CELL VOLUME 87.4 fL (81.0-99.0); MEAN CORPUSCULAR HEMOGLOBIN 29.9 pg (27.0-31.0); MEAN CORPUSCULAR HGB CONC 34.2 g/dL (33.0-37.0); MEAN PLATELET VOLUME 8.3 fL (7.2-11.7); MONO # 0.6 K/uL (0.0-0.8); NEUT # 3.2 K/uL (1.8-7.0); NEUT % 55.5 % (50.0-75.0); RBC 4.17 Mil/uL (3.80-5.20); RED CELL DISTRIBUTION WIDTH 13.4 % (11.5-14.5); WHITE BLOOD COUNT 5.8 K/uL (4.8-10.8)
[2018-02-08 08:04] LABS: ALBUMIN 3.6 g/dL (3.5-5.0); ALT/SGPT 23 U/L (9-52); AST/SGOT 35 U/L (14-36); BLOOD UREA NITROGEN 20 mg/dL (7-17); CALCIUM 9.3 mg/dl (8.6-10.4); GFR AFRICAN-AMERICAN > 60; GFR NON-AFRICAN AMERICAN > 60
--- NOTE | 2018-02-08 09:33 | CP.PCM.PN ---
Subjective - Date & Time of Evaluation Date of Evaluation: 02/08/18 Time of Evaluation: 09:31 - Subjective Subjective: Patient complaining of right hip and elbow pain. Denies CP/SOB/dizziness/ numbess. Objective - Vital Signs/Intake and Output Vital Signs (last 24 hours): Temp Pulse Resp BP Pulse Ox 98.0 F 56 L 18 130/79 96 02/08/18 07:25 02/08/18 07:25 02/08/18 07:25 02/08/18 09:17 02/08/18 07:25 Intake and Output: 02/08/18 02/08/18 06:59 18:59 Intake Total 100 Output Total 200 Balance -100 - Medications Medications: Current Medications Acetaminophen (Tylenol 325mg Tab) 650 mg PO Q6 PRN PRN Reason: Pain, Mild (1-3) Last Admin: 02/08/18 00:23 Dose: 650 mg Collagenase (Santyl) 0 gm TOP DAILY [facility] Last Admin: 02/07/18 09:25 Dose: 1 applic Docusate Sodium (Colace) 100 mg PO BID [facility] Last Admin: 02/08/18 09:17 Dose: 100 mg Enalapril Maleate (Vasotec) 40 mg PO DAILY [facility] Last Admin: 02/08/18 09:17 Dose: 40 mg Enoxaparin Sodium (Lovenox) 40 mg SC Q24H [facility] Last Admin: 02/07/18 13:33 Dose: 40 mg Ergocalciferol (Drisdol 50,000 Intl Units Cap) 1 cap PO Q7D [facility] Last Admin: 02/03/18 10:15 Dose: 1 cap Famotidine (Pepcid) 20 mg PO BID [facility] Last Admin: 02/08/18 09:17 Dose: 20 mg Hydralazine HCl (Apresoline) 10 mg IVP Q6H PRN PRN Reason: Systolic Blood Pressure Last Admin: 02/06/18 07:11 Dose: 10 mg Mupirocin (Bactroban Ointment) 0 gm TOP DAILY [facility] Last Admin: 02/07/18 09:25 Dose: 1 applic Ondansetron HCl (Zofran Inj) 4 mg IVP Q6 PRN PRN Reason: Nausea/Vomiting Last Admin: 02/04/18 18:08 Dose: 4 mg Oxycodone/Acetaminophen (Percocet 5/325 Mg Tab) 1 tab PO Q6H PRN PRN Reason: Pain, severe (8-10) Stop: 02/10/18 13:53 Last Admin: 02/07/18 22:43 Dose: 1 tab Polyethylene Glycol (Miralax) 17 gm PO DAILY [facility] Last Admin: 02/07/18 09:25 Dose: 17 gm - Labs Labs: 02/08/18 07:27 02/08/18 07:27 PT 11.1 SECONDS (9.7-12.2) 02/01/18 22:00 INR 1.0 02/01/18 22:00 APTT 33 SECONDS (21-34) 02/01/18 22:00 - Extremities Exam Additional comments: right hip: dressing changed. Incision intact, small amount serosang drainage, no erythema. New dressing applied. +ROM ankle/toes, senation intact, calves soft NT neg homans RUE: +ROM fingers, sensation intact, splint intact, hand elevated, swelling improving Assessment and Plan (1) Closed fracture of olecranon process of right ulna Assessment & Plan: POD#4 s/p IM nail/ORIF hip and right olecranon orthopedically stable PT/OT cont VTE proph encourage OOB SCDs d/c planning to home d/w DR. Bobby, agrees with above Status: Acute (2) Closed intertrochanteric fracture of right femur Status: Acute (3) Vitamin D deficiency Status: Chronic
[2018-02-08] MEDS: Oxycodone/Acetaminophen 5/325 mg Tab PO PRN ×2 (09:34→22:33)
[2018-02-08] MEDS: Collagenase 250 Units/gm Ointment(30 gm) TOP SCH (10:02)
[2018-02-08] MEDS: POLYETHYLENE GLYCOL 3350 17 GM/Dose PACKET PO SCH (11:00)
[2018-02-08] MEDS: Enoxaparin 40 mg Syringe SC SCH (14:01)
[2018-02-08] MEDS ORDERED: Oxycodone/Acetaminophen 5/325 mg Tab PO PRN (18:06)
--- NOTE | 2018-02-08 18:09 | CP.PCM.PN ---
<Yaritza Mckeon - Last Filed: 02/08/18 18:04> Subjective - Date & Time of Evaluation Date of Evaluation: 02/08/18 Time of Evaluation: 09:00 - Subjective Subjective: Medicine Note for Hospitalist Service- Dr. Anguiano Patient was seen and examined at bedside. Patient is s/p ORIF elbow, ORIF right hip. She is tolerating diet, ambulating with PT with walker. Plan is for use of wheelchair. Admits to passing gas and bowel movements last night. Denied fever, chills, headaches, chest pain, shortness of breath, abdominal pain, n/v/d/c, or urinary symptoms. Objective - Vital Signs/Intake and Output Vital Signs (last 24 hours): Temp Pulse Resp BP Pulse Ox 98.1 F 61 20 117/55 L 96 02/08/18 15:48 02/08/18 15:48 02/08/18 15:48 02/08/18 15:48 02/08/18 15:48 Intake and Output: 02/08/18 02/08/18 06:59 18:59 Intake Total 100 300 Output Total 200 600 Balance -100 -300 - Medications Medications: Current Medications Acetaminophen (Tylenol 325mg Tab) 650 mg PO Q6 PRN PRN Reason: Pain, Mild (1-3) Last Admin: 02/08/18 00:23 Dose: 650 mg Collagenase (Santyl) 0 gm TOP DAILY [facility] Last Admin: 02/08/18 10:02 Dose: 1 applic Docusate Sodium (Colace) 100 mg PO BID [facility] Last Admin: 02/08/18 17:32 Dose: 100 mg Enalapril Maleate (Vasotec) 40 mg PO DAILY [facility] Last Admin: 02/08/18 09:17 Dose: 40 mg Enoxaparin Sodium (Lovenox) 40 mg SC Q24H [facility] Last Admin: 02/08/18 14:01 Dose: 40 mg Ergocalciferol (Drisdol 50,000 Intl Units Cap) 1 cap PO Q7D [facility] Last Admin: 02/03/18 10:15 Dose: 1 cap Famotidine (Pepcid) 20 mg PO BID [facility] Last Admin: 02/08/18 17:32 Dose: 20 mg Hydralazine HCl (Apresoline) 10 mg IVP Q6H PRN PRN Reason: Systolic Blood Pressure Last Admin: 02/06/18 07:11 Dose: 10 mg Mupirocin (Bactroban Ointment) 0 gm TOP DAILY [facility] Last Admin: 02/08/18 10:03 Dose: 1 applic Ondansetron HCl (Zofran Inj) 4 mg IVP Q6 PRN PRN Reason: Nausea/Vomiting Last Admin: 02/04/18 18:08 Dose: 4 mg Oxycodone/Acetaminophen (Percocet 5/325 Mg Tab) 1 tab PO Q6H PRN PRN Reason: Pain, severe (8-10) Stop: 02/10/18 13:53 Last Admin: 02/08/18 09:34 Dose: 1 tab Polyethylene Glycol (Miralax) 17 gm PO DAILY [facility] Last Admin: 02/08/18 11:00 Dose: 17 gm - Labs Labs: 02/08/18 07:27 02/08/18 07:27 PT 11.1 SECONDS (9.7-12.2) 02/01/18 22:00 INR 1.0 02/01/18 22:00 APTT 33 SECONDS (21-34) 02/01/18 22:00 - Additional Findings Additional findings: - Constitutional Appears: No Acute Distress - Head Exam Head Exam: ATRAUMATIC, NORMAL INSPECTION - Eye Exam Eye Exam: EOMI, Normal appearance - ENT Exam ENT Exam: Mucous Membranes Moist - Respiratory Exam Respiratory Exam: Clear to Ausculation Bilateral, NORMAL BREATHING PATTERN - Cardiovascular Exam Cardiovascular Exam: REGULAR RHYTHM, +S1, +S2 - GI/Abdominal Exam GI & Abdominal Exam: Soft, Normal Bowel Sounds. absent: Tenderness Additional comments: surgical site clean, dry, some eschar noted mildine, no pus, no drainage, no erythema, no evidence of cellulitis. Clean/dry/intact - Extremities Exam Additional comments: RUE: +rom fingers/wrist flex/ext, sensation intact to rad/med/ulnar n, cap reil < 2 sec, fingers warm - Neurological Exam Neurological Exam: Alert, Awake, Oriented x3 - Psychiatric Exam Psychiatric exam: Normal Affect, Normal Mood - Skin Skin Exam: Dry, Intact, Normal Color Assessment and Plan - Assessment and Plan (Free Text) Plan: Nondisplaced Right Hip Fracture S/P ORIF Right hip with Dr. Bobby on 02/04/18 - Orthopedics, Dr. Bboby is consulted Imaging: - Hip CT: Nondisplaced intertrochanteric fracture of the right hip with mild impaction. - Hip/ Pelvis Xray: Impacted fracture right femoral neck without dislocation. Degenerative changes are seen the bilateral sacroiliac and right hip joints. Diffuse osteopenia suggests osteoporosis. Prior left partial head replacement identified. - Elbow Xray: Comminuted nondisplaced fracture proximal right ulna through the olecranon process with extensive overlying soft tissue edema throughout the dorsal elbow soft tissues. No dislocation. Management: - Pain management with tylenol, percocet PRN - Zofran prn Medical Clearance: - EKG: NSR @ 65 BPM, NAD, no ST changes - CXR : NAD, Linear atelectatic changes at left lung base with associated elevated left hemidiaphragm. Emphysematous changes. Upper lobe granulomatous changes. Right hilar prominence. Additional mild linear atelectasis at the right lung base. Tortuous aorta. - Labs - cbc, cmp, and coags - WNL - ECHO - LVEF 71 % - Detsky's criteria: Patient is low-medium risk individual for Class I 6% complications - Patient is medically optimized for surgery - Orthopedics and anesthesia to discuss risks and benefits prior to procedure respectively - S/P OR for ORIF elbow, ORIF Right hip with Dr. Bobby on 02/04/18 Olecranon fracture S/P ORIF elbow on 02/04/18 - Orthopedics, Dr. Bobby is consulted - CT Right Upper Extremity: Comminuted minimally displaced intra-articular olecranon fracture - OR for ORIF elbow, ORIF vs THR hip with Dr. Bobby on 02/04/18 HTN - Will start home medication enalapril 40mg PO daily - Hydralazine 10mg IVP Q6H PRN for SBP > 160 mmHg, HR <60 - Patient is on fluids this will also increase BP - ECHO - LVEF 71 % S/P Ventral hernia repair with bowel resection 08/2017 - Wound approximating, healing well - Will continue with medi honey and dressings change daily - Continue to monitor site Prophylaxis - GI: Pepcid - DVT: SCDs, Lovenox - PT/OT Disposition: Due to lack of insurance, pending clearance with PT for OK to discharge home with wheelchair. Will transition to Eliquis 2.5 mg PO BID to complete total 35 days of VTE s/p orthopedic surgery. (started 02/05/18 last dose on 03/11/18). DW Dr. Dr. Anguiano, Yaritza Mckeon DO, PGY-1 <Marcy Anguiano V - Last Filed: 02/09/18 06:10> Objective - Vital Signs/Intake and Output Vital Signs (last 24 hours): Temp Pulse Resp BP Pulse Ox 98.9 F 65 20 134/63 98 02/08/18 23:15 02/08/18 23:15 02/08/18 23:15 02/08/18 23:15 02/08/18 23:15 Intake and Output: 02/08/18 02/09/18 18:59 06:59 Intake Total 300 720 Output Total 600 650 Balance -300 70 - Medications Medications: Current Medications Acetaminophen (Tylenol 325mg Tab) 650 mg PO Q6 PRN PRN Reason: Pain, Mild (1-3) Last Admin: 02/08/18 00:23 Dose: 650 mg Collagenase (Santyl) 0 gm TOP DAILY [facility] Last Admin: 02/08/18 10:02 Dose: 1 applic Docusate Sodium (Colace) 100 mg PO BID [facility] Last Admin: 02/08/18 17:32 Dose: 100 mg Enalapril Maleate (Vasotec) 40 mg PO DAILY [facility] Last Admin: 02/08/18 09:17 Dose: 40 mg Enoxaparin Sodium (Lovenox) 40 mg SC Q24H [facility] Last Admin: 02/08/18 14:01 Dose: 40 mg Ergocalciferol (Drisdol 50,000 Intl Units Cap) 1 cap PO Q7D [facility] Last Admin: 02/03/18 10:15 Dose: 1 cap Famotidine (Pepcid) 20 mg PO BID [facility] Last Admin: 02/08/18 17:32 Dose: 20 mg Hydralazine HCl (Apresoline) 10 mg IVP Q6H PRN PRN Reason: Systolic Blood Pressure Last Admin: 02/06/18 07:11 Dose: 10 mg Mupirocin (Bactroban Ointment) 0 gm TOP DAILY [facility] Last Admin: 02/08/18 10:03 Dose: 1 applic Ondansetron HCl (Zofran Inj) 4 mg IVP Q6 PRN PRN Reason: Nausea/Vomiting Last Admin: 02/04/18 18:08 Dose: 4 mg Oxycodone/Acetaminophen (Percocet 5/325 Mg Tab) 1 tab PO Q6H PRN PRN Reason: Pain, moderate (4-7) Stop: 02/10/18 13:53 Oxycodone/Acetaminophen (Percocet 5/325 Mg Tab) 2 tab PO Q6H PRN PRN Reason: Pain, severe (8-10) Stop: 02/11/18 18:07 Last Admin: 02/08/18 22:33 Dose: 2 tab Polyethylene Glycol (Miralax) 17 gm PO DAILY [facility] Last Admin: 02/08/18 11:00 Dose: 17 gm - Labs Labs: 02/08/18 07:27 02/08/18 07:27 PT 11.1 SECONDS (9.7-12.2) 02/01/18 22:00 INR 1.0 02/01/18 22:00 APTT 33 SECONDS (21-34) 02/01/18 22:00 Attending/Attestation - Attestation I have personally seen and examined this patient.: Yes I have fully participated in the care of the patient.: Yes I have reviewed all pertinent clinical information, including history, physical exam and plan: Yes Notes (Text): This is late computer entry for 02/08/18. Patient seen, examined and case discussed with medical sociologist. Patient seen this afternoon with daughter in law at bedside. Patient reports she is doing ok. She had pain overnight over her affected right hip and right elbow. Patient reports she worked with physical therapy today; but has not worked with wheel chair yet. Family is willing to pay for wheel chair out of pocket. Case management working to make arrangements for the wheel chair.. At time of my round, new physical therapy note is not in; only from 02/06 suggesting for TIBURCIO. Resident has checked with ortho-pa in regards to chemical anticoagulation prophylaxis; allowing for Eliquis. We are awaiting physical therapy as well as for wheel chair to arrive prior to discharge planning. We have explain with family present since she will be taking a pill by mouth to prevent clots with also be at risk for bleeding if she falls. Patient has not yet worked with rolling walker yet PT sessions. Assessment/Plan 1) Nondisplaced Right Hip Fracture S/P ORIF Right hip with Dr. Bobby on 02/04/18 - Orthopedics, Dr. Bobby is consulted--> POD#4 s/p IM nail/ORIF hip and right olecranon, orthopedically stable, PT/OT, cont VTE proph, encourage OOB, SCDs d/c planning to home Imaging: - Hip CT: Nondisplaced intertrochanteric fracture of the right hip with mild impaction. - Hip/ Pelvis Xray: Impacted fracture right femoral neck without dislocation. Degenerative changes are seen the bilateral sacroiliac and right hip joints. Diffuse osteopenia suggests osteoporosis. Prior left partial head replacement identified. - Elbow Xray: Comminuted nondisplaced fracture proximal right ulna through the olecranon process with extensive overlying soft tissue edema throughout the dorsal elbow soft tissues. No dislocation. Management: - Pain management with tylenol, percocet PRN - Zofran prn Medical Clearance: - EKG: NSR @ 65 BPM, NAD, no ST changes - CXR : NAD, Linear atelectatic changes at left lung base with associated elevated left hemidiaphragm. Emphysematous changes. Upper lobe granulomatous changes. Right hilar prominence. Additional mild linear atelectasis at the right lung base. Tortuous aorta. - Labs - cbc, cmp, and coags - WNL - ECHO - LVEF 71 % - Detsky's criteria: Patient is low-medium risk individual for Class I 6% complications - Patient is medically optimized for surgery - Orthopedics and anesthesia to discuss risks and benefits prior to procedure respectively - S/P OR for ORIF elbow, ORIF Right hip with Dr. Bobby on 02/04/18 2) Olecranon fracture 2) S/P ORIF elbow on 02/04/18 - Orthopedics, Dr. Bobby is consulted--> POD#4 s/p IM nail/ORIF hip and right olecranon, orthopedically stable, PT/OT, cont VTE proph, encourage OOB, SCDs d/c planning to home - CT Right Upper Extremity: Comminuted minimally displaced intra-articular olecranon fracture - OR for ORIF elbow, ORIF vs THR hip with Dr. Bobby on 02/04/18 3) HTN * Will start home medication enalapril 40mg PO daily * Hydralazine 10mg IVP Q6H PRN for SBP > 160 mmHg has not needed since 02/06 * Blood pressure controlled 4) S/P Ventral hernia repair with bowel resection 08/2017 * Wound approximating, healing well * Will continue with medi honey and dressings change daily * Continue to monitor site * Santyl 5) Prophylaxis * GI: Pepcid 20mg PO bid * DVT: SCDs, Lovenox 40mg subq daily * c/w PT/OT Disposition: Due to lack of insurance, pending clearance with PT for OK to discharge home with wheelchair. Will transition to Eliquis 2.5 mg PO BID to complete total 35 days of VTE s/p orthopedic surgery. (started 02/05/18 last dose on 03/11/18).
--- NOTE | 2018-02-09 07:55 | OP ---
PROCEDURE DATE: 02/04/2018 PREOPERATIVE DIAGNOSES: 1. Multiple trauma. 2. Displaced intertrochanteric right femur fracture. 3. Displaced right olecranon fracture. TYPE OF ANESTHESIA: General endotracheal anesthesia. ANESTHESIA ADMINISTERED BY: Dr. Bolton. SURGEON: Neftali Bobby MD INFRASTRUCTURE ARCHITECT: Radha Godoy PA-C SECOND OPTION TRADER: Jennifer Nieves, certified registered nursing printing bindery assistant. It should be noted that both SINDY Godoy and nursing printing bindery assistant, Ezequiel were essential for the completion of the operative goal in this multiple trauma patient. The patient has comorbidities and the concept of getting the patient off the operating room table quickly is the mckinney and both assistants, ALISHA and the certified registered nursing printing bindery assistant were essential. OPERATIVE FINDINGS: As above. TOURNIQUET: Right upper extremity 38 minutes at 250 mmHg. POSTOPERATIVE DIAGNOSES: 1. Multiple trauma. 2. Displaced intertrochanteric right femur fracture. 3. Displaced right olecranon fracture. OPERATIONS PERFORMED: 1. Open reduction internal fixation, intertrochanteric right femur fracture with interlocking intramedullary nail. 2. Open reduction internal fixation, right olecranon fracture with cerclage wire. 3. Splint application upper extremity. 4. Positioning of fluoroscope, interpretation of video images. ESTIMATED BLOOD LOSS: Approximately 55 mL. It should be noted that the operative fixation of fracture of the right upper extremity was approximately 11 minutes. The operative fixation of the right intertrochanteric fracture with interlocking, intramedullary nails, approximately 15 minutes. No specimens removed. No blood products given. No drains. POSTOPERATIVE CONDITION: Stable, fair. Right upper extremity and right lower extremity were the involved extremities. OPERATIVE INDICATIONS: Jihan Schafer is an 82-year-old woman who sustained a fall on the right upper extremity and right lower extremity. The patient sustained a injury to the hip, presents to the emergency room at [facility] with a displaced right olecranon fracture and a displaced right intertrochanteric fracture. The patient was admitted, stabilized. Pros, cons, risks and benefits of the surgical approach were discussed with the patient's grandson who was the culturally competent liaison planner. The possibility of mechanical failure, infection, thromboembolic disease, secondary or tertiary surgery and even was discussed. The lower extremity will be first addressed. DESCRIPTION OF PROCEDURE: After having obtained informed consent, after the satisfactory induction of general endotracheal anesthesia by Dr. Bolton, after having identified the side, site, and procedure, and a critical pause/time-out, the patient was placed in a right lower extremity traction. There was a minimal amount of abduction to expose the greater trochanter as the entry point for the intramedullary nail. Under the surgeon's direction, the fluoroscope was positioned, video images were generated and therapeutic decisions were made therefrom. With moderate amount of traction, the fracture was reduced and found to be anatomic. Verification of position is offered on AP and lateral image intensification views. The right lower extremity was prepped and pre-draped in a usual fashion for extremity surgery. The greater trochanteric prominence was identified, and an incision was described superficially to the greater trochanter, approximately 3 fingerbreadth distal, 4 to 5 fingerbreadths proximal. The skin incision was carried down through the skin and subcutaneous tissue. The greater trochanter was identified. Small amount of the abductor was carefully divided. At this point in time, the guide pin was introduced. Through the incision, a modified Elias-Mariana and Gelpi retractor were placed. The pin having been introduced, verification of position was offered on AP and lateral image intensification views. The reamers used to open the proximal aspect of the greater trochanter and at this point in time, it was found to be in excellent position of the guide pin. At this point in time, the short interlocking nail was introduced through the aperture in the greater trochanter. The nail was introduced to the proper area. At this point in time, the outrigger was employed to introduce the interlocking aspect of the nail. An incision was described to accept the outrigger. The outrigger was placed and fixed to the lateral aspect of the shaft of the femur. Verification of position was offered on image intensification. Drilling was accomplished and at this point in time, the triflange nails was introduced and it is in an excellent position, verification of position was offered in AP and lateral image intensification views. This having been accomplished, the position of the nail was found to be excellent. The outrigger remains intact. The distal interlock is identified. The distal incision is extended so that the tube is placed for the drill and drill bit is introduced through the nail, verification of position was offered on image intensification views and approximately a 38 mm screw was employed and the position was found to be anatomic. The wound was thoroughly irrigated, the outrigger was removed. The abductor was closed with interrupted Vicryl and closures in layers and bella for skin. Attention was now turned to the upper extremity. Again under surgeon's direction, the fluoroscope was positioned. Video images were generated, therapeutic decisions were made therefrom. Compression dressings have been applied in the hip. Attention was turned to the olecranon. displaced olecranon fracture. The operation was performed across the patient's chest. All bony prominences were well padded. The head and neck most particularly well padded. An incision was described 3 fingerbreadths distal to the olecranon and 4 fingerbreadths proximal. The skin incision was carried down to the skin and subcutaneous tissue. Stay sutures were placed. The soft tissues were identified and carefully dissected from the fracture site using a #15 blade. The fracture at this point is reduced. Verification of position was offered on image intensification views. At this point in time, two 1.6 mm K wires were introduced through the olecranon into the shaft of the ulna. At this point in time, 2.5 mm drill bit was placed 3 fingerbreadths distal to the fracture and the loop cerclage wire was placed through in a [id number] fashion using the Jet Twister wire tightner, the fracture was reduced, and the gap was reduced anatomically. The pin is bent, it is cut and twisted 180 degrees, so it is secured to the posterior aspect of the olecranon. Verification position shows that the fracture is anatomic. The wound was sterilely irrigated. Closures in layers 2-0 Vicryl, bella for skin. Sesar Feliciano compression dressing and posterior splint was applied. The patient was transferred carefully from the operating table to the stretcher, having tolerated the procedure well. The patient is stable . Neftali Bobby MD
[2018-02-09 07:59] LABS: ALB/GLOB RATIO 1.1 (1.0-2.1); ALBUMIN 3.7 g/dL (3.5-5.0); ALT/SGPT 22 U/L (9-52); AST/SGOT 40 U/L (14-36); BLOOD UREA NITROGEN 19 mg/dL (7-17); GFR AFRICAN-AMERICAN > 60; GFR NON-AFRICAN AMERICAN > 60
[2018-02-09 08:05] LABS: BASO # 0.1 K/uL (0.0-0.2); BASO % 1.4 % (0.0-2.0); EOS # 0.2 K/uL (0.0-0.7); EOS % 3.5 % (0.0-4.0); HEMOGLOBIN 10.7 g/dL (11.0-16.0); LYMPH # 1.6 K/uL (1.0-4.3); LYMPH % 26.7 % (20.0-40.0); MEAN CELL VOLUME 87.6 fL (81.0-99.0); MEAN CORPUSCULAR HEMOGLOBIN 29.5 pg (27.0-31.0); MEAN CORPUSCULAR HGB CONC 33.6 g/dL (33.0-37.0); MEAN PLATELET VOLUME 8.5 fL (7.2-11.7); MONO # 0.7 K/uL (0.0-0.8); MONO % 11.7 % (0.0-10.0); NEUT # 3.4 K/uL (1.8-7.0); NEUT % 56.7 % (50.0-75.0); NRBC % 0.1 % (0.0-2.0); RBC 3.64 Mil/uL (3.80-5.20); RED CELL DISTRIBUTION WIDTH 13.6 % (11.5-14.5); WHITE BLOOD COUNT 5.9 K/uL (4.8-10.8)
[2018-02-09] MEDS: POLYETHYLENE GLYCOL 3350 17 GM/Dose PACKET PO SCH (10:46)
--- NOTE | 2018-02-09 11:48 | CP.PCM.PN ---
<Yaritza Mckeon - Last Filed: 02/09/18 11:43> Subjective - Date & Time of Evaluation Date of Evaluation: 02/09/18 Time of Evaluation: 07:00 - Subjective Subjective: Medicine Note for Hospitalist Service- Dr. Anguiano Patient was seen and examined at bedside. Patient is s/p ORIF elbow, ORIF right hip. Plan is for use of wheelchair, PT is working with her, wheelchair has been ordered. Pain is controlled with PO analgesics. Denied fever, chills, headaches , chest pain, shortness of breath, abdominal pain, n/v/d/c, or urinary symptoms. Objective - Vital Signs/Intake and Output Vital Signs (last 24 hours): Temp Pulse Resp BP Pulse Ox 98.1 F 59 L 18 135/64 97 02/09/18 07:30 02/09/18 07:30 02/09/18 07:30 02/09/18 10:48 02/09/18 07:30 Intake and Output: 02/09/18 02/09/18 06:59 18:59 Intake Total 720 Output Total 850 Balance -130 - Medications Medications: Current Medications Acetaminophen (Tylenol 325mg Tab) 650 mg PO Q6 PRN PRN Reason: Pain, Mild (1-3) Last Admin: 02/08/18 00:23 Dose: 650 mg Docusate Sodium (Colace) 100 mg PO BID [facility] Last Admin: 02/09/18 10:46 Dose: 100 mg Enalapril Maleate (Vasotec) 40 mg PO DAILY [facility] Last Admin: 02/09/18 10:48 Dose: 40 mg Enoxaparin Sodium (Lovenox) 40 mg SC Q24H [facility] Last Admin: 02/08/18 14:01 Dose: 40 mg Ergocalciferol (Drisdol 50,000 Intl Units Cap) 1 cap PO Q7D [facility] Last Admin: 02/03/18 10:15 Dose: 1 cap Famotidine (Pepcid) 20 mg PO BID [facility] Last Admin: 02/09/18 10:46 Dose: 20 mg Hydralazine HCl (Apresoline) 10 mg IVP Q6H PRN PRN Reason: Systolic Blood Pressure Last Admin: 02/06/18 07:11 Dose: 10 mg Ondansetron HCl (Zofran Inj) 4 mg IVP Q6 PRN PRN Reason: Nausea/Vomiting Last Admin: 02/04/18 18:08 Dose: 4 mg Oxycodone/Acetaminophen (Percocet 5/325 Mg Tab) 1 tab PO Q6H PRN PRN Reason: Pain, moderate (4-7) Stop: 02/10/18 13:53 Last Admin: 02/09/18 10:45 Dose: 1 tab Oxycodone/Acetaminophen (Percocet 5/325 Mg Tab) 2 tab PO Q6H PRN PRN Reason: Pain, severe (8-10) Stop: 02/11/18 18:07 Last Admin: 02/08/18 22:33 Dose: 2 tab Polyethylene Glycol (Miralax) 17 gm PO DAILY [facility] Last Admin: 02/09/18 10:46 Dose: 17 gm - Labs Labs: 02/09/18 07:38 02/09/18 07:38 PT 11.1 SECONDS (9.7-12.2) 02/01/18 22:00 INR 1.0 02/01/18 22:00 APTT 33 SECONDS (21-34) 02/01/18 22:00 - Additional Findings Additional findings: - Constitutional Appears: No Acute Distress - Head Exam Head Exam: ATRAUMATIC, NORMAL INSPECTION - Eye Exam Eye Exam: EOMI, Normal appearance - ENT Exam ENT Exam: Mucous Membranes Moist - Respiratory Exam Respiratory Exam: Clear to Ausculation Bilateral, NORMAL BREATHING PATTERN - Cardiovascular Exam Cardiovascular Exam: REGULAR RHYTHM, +S1, +S2 - GI/Abdominal Exam GI & Abdominal Exam: Soft, Normal Bowel Sounds. absent: Tenderness Additional comments: surgical site clean, dry, some eschar noted mildine, no pus, no drainage, no erythema, no evidence of cellulitis. Clean/dry/intact - Extremities Exam Additional comments: RUE: +rom fingers/wrist flex/ext, sensation intact to rad/med/ulnar n, cap reil < 2 sec, fingers warm - Neurological Exam Neurological Exam: Alert, Awake, Oriented x3 - Psychiatric Exam Psychiatric exam: Normal Affect, Normal Mood - Skin Skin Exam: Dry, Intact, Normal Color Assessment and Plan - Assessment and Plan (Free Text) Plan: Nondisplaced Right Hip Fracture S/P ORIF Right hip with Dr. Bobby on 02/04/18 - Orthopedics, Dr. Bobby is consulted Imaging: - Hip CT: Nondisplaced intertrochanteric fracture of the right hip with mild impaction. - Hip/ Pelvis Xray: Impacted fracture right femoral neck without dislocation. Degenerative changes are seen the bilateral sacroiliac and right hip joints. Diffuse osteopenia suggests osteoporosis. Prior left partial head replacement identified. - Elbow Xray: Comminuted nondisplaced fracture proximal right ulna through the olecranon process with extensive overlying soft tissue edema throughout the dorsal elbow soft tissues. No dislocation. Management: - Pain management with tylenol, percocet PRN - Zofran prn Medical Clearance: - EKG: NSR @ 65 BPM, NAD, no ST changes - CXR : NAD, Linear atelectatic changes at left lung base with associated elevated left hemidiaphragm. Emphysematous changes. Upper lobe granulomatous changes. Right hilar prominence. Additional mild linear atelectasis at the right lung base. Tortuous aorta. - Labs - cbc, cmp, and coags - WNL - ECHO - LVEF 71 % - Detsky's criteria: Patient is low-medium risk individual for Class I 6% complications - Patient is medically optimized for surgery - Orthopedics and anesthesia to discuss risks and benefits prior to procedure respectively - S/P OR for ORIF elbow, ORIF Right hip with Dr. Bobby on 02/04/18 Olecranon fracture S/P ORIF elbow on 02/04/18 - Orthopedics, Dr. Bobby is consulted - CT Right Upper Extremity: Comminuted minimally displaced intra-articular olecranon fracture - OR for ORIF elbow, ORIF vs THR hip with Dr. Bobby on 02/04/18 HTN - Will start home medication enalapril 40mg PO daily - Hydralazine 10mg IVP Q6H PRN for SBP > 160 mmHg, HR <60 - Patient is on fluids this will also increase BP - ECHO - LVEF 71 % S/P Ventral hernia repair with bowel resection 08/2017 - Wound approximating, healing well - Will continue with medi honey and dressings change daily - Continue to monitor site Prophylaxis - GI: Pepcid - DVT: SCDs, Lovenox - PT/OT Disposition: Due to lack of insurance, pending clearance with PT for OK to discharge home with wheelchair. Lovenox was started 02/05/18 - 02/10/18, Will start Eliquis 2.5 mg PO BID on 02/10/18 to complete total 35 days of VTE s/p orthopedic surgery. (started 02/05/18 last dose on 03/11/18). DW Dr. Dr. Anguiano, Yaritza Mckeon DO, PGY-1 <Marcy Anguiano V - Last Filed: 02/10/18 00:13> Objective - Vital Signs/Intake and Output Vital Signs (last 24 hours): Temp Pulse Resp BP Pulse Ox 97.5 F L 60 20 105/52 L 95 02/09/18 15:33 02/09/18 15:33 02/09/18 15:33 02/09/18 15:33 02/09/18 15:33 Intake and Output: 02/09/18 02/10/18 18:59 06:59 Intake Total 600 Output Total 900 Balance -300 - Medications Medications: Current Medications Acetaminophen (Tylenol 325mg Tab) 650 mg PO Q6 PRN PRN Reason: Pain, Mild (1-3) Last Admin: 02/08/18 00:23 Dose: 650 mg Apixaban (Eliquis) 2.5 mg PO BID [facility] Docusate Sodium (Colace) 100 mg PO BID [facility] Last Admin: 02/09/18 19:04 Dose: 100 mg Enalapril Maleate (Vasotec) 40 mg PO DAILY [facility] Last Admin: 02/09/18 10:48 Dose: 40 mg Ergocalciferol (Drisdol 50,000 Intl Units Cap) 1 cap PO Q7D [facility] Last Admin: 02/03/18 10:15 Dose: 1 cap Famotidine (Pepcid) 20 mg PO BID [facility] Last Admin: 02/09/18 19:04 Dose: 20 mg Ondansetron HCl (Zofran Inj) 4 mg IVP Q6 PRN PRN Reason: Nausea/Vomiting Last Admin: 02/04/18 18:08 Dose: 4 mg Oxycodone/Acetaminophen (Percocet 5/325 Mg Tab) 1 tab PO Q6H PRN PRN Reason: Pain, moderate (4-7) Stop: 02/10/18 13:53 Last Admin: 02/09/18 10:45 Dose: 1 tab Oxycodone/Acetaminophen (Percocet 5/325 Mg Tab) 2 tab PO Q6H PRN PRN Reason: Pain, severe (8-10) Stop: 02/11/18 18:07 Last Admin: 02/08/18 22:33 Dose: 2 tab Polyethylene Glycol (Miralax) 17 gm PO DAILY [facility] Last Admin: 02/09/18 10:46 Dose: 17 gm - Labs Labs: 02/09/18 07:38 02/09/18 07:38 PT 11.1 SECONDS (9.7-12.2) 02/01/18 22:00 INR 1.0 02/01/18 22:00 APTT 33 SECONDS (21-34) 02/01/18 22:00 Attending/Attestation - Attestation I have personally seen and examined this patient.: Yes I have fully participated in the care of the patient.: Yes I have reviewed all pertinent clinical information, including history, physical exam and plan: Yes Notes (Text): This is late computer entry for 02/09/18. Patient seen, examined and case discussed with medical underwriter. Patient seen this morning. Patient reports she is doing ok; required pain medication overnight. patient to work with physical therapy today; will need to f/u for physical therapy clearance. We are also awaiting for rolling walker to arrive as well. Will start patient on Eliquis tomorrow and d/c dvt ppx lovenox following dose today. Patient was seen and elevated by wound care given hx of prior hernia surgery; and reports it is improving with medihoney. Assessment/Plan 1) Nondisplaced Right Hip Fracture S/P ORIF Right hip with Dr. Bobby on 02/04/18 - Orthopedics, Dr. Bobby is consulted--> POD#4 s/p IM nail/ORIF hip and right olecranon, orthopedically stable, PT/OT, cont VTE proph, encourage OOB, SCDs d/c planning to home Imaging: - Hip CT: Nondisplaced intertrochanteric fracture of the right hip with mild impaction. - Hip/ Pelvis Xray: Impacted fracture right femoral neck without dislocation. Degenerative changes are seen the bilateral sacroiliac and right hip joints. Diffuse osteopenia suggests osteoporosis. Prior left partial head replacement identified. - Elbow Xray: Comminuted nondisplaced fracture proximal right ulna through the olecranon process with extensive overlying soft tissue edema throughout the dorsal elbow soft tissues. No dislocation. Management: - Pain management with tylenol, percocet PRN - Zofran prn Medical Clearance: - EKG: NSR @ 65 BPM, NAD, no ST changes - CXR : NAD, Linear atelectatic changes at left lung base with associated elevated left hemidiaphragm. Emphysematous changes. Upper lobe granulomatous changes. Right hilar prominence. Additional mild linear atelectasis at the right lung base. Tortuous aorta. - Labs - cbc, cmp, and coags - WNL - ECHO - LVEF 71 % - Detsky's criteria: Patient is low-medium risk individual for Class I 6% complications - Patient is medically optimized for surgery - Orthopedics and anesthesia to discuss risks and benefits prior to procedure respectively - S/P OR for ORIF elbow, ORIF Right hip with Dr. Bobby on 02/04/18 2) Olecranon fracture 2) S/P ORIF elbow on 02/04/18 - Orthopedics, Dr. Bobby is consulted--> POD#4 s/p IM nail/ORIF hip and right olecranon, orthopedically stable, PT/OT, cont VTE proph, encourage OOB, SCDs d/c planning to home - CT Right Upper Extremity: Comminuted minimally displaced intra-articular olecranon fracture - OR for ORIF elbow, ORIF vs THR hip with Dr. Bobby on 02/04/18 3) HTN * Will c/w home medication enalapril 40mg PO daily * d/c Hydralazine 10mg IVP Q6H PRN for SBP > 160 mmHg has not needed since 02/06 * Blood pressure controlled 4) S/P Ventral hernia repair with bowel resection 08/2017 * Wound approximating, healing well * Will continue with medi honey and dressings change daily * Continue to monitor site * Santyl 5) Prophylaxis * GI: Pepcid 20mg PO bid * DVT: SCDs, Lovenox 40mg subq daily switch to Eliquis 2.5mg PO bid in AM * c/w PT/OT Disposition: Due to lack of insurance, pending clearance with PT for OK to discharge home with wheelchair. Will transition to Eliquis 2.5 mg PO BID to complete total 35 days of VTE s/p orthopedic surgery. (started 02/05/18 last dose on 03/11/18).
--- NOTE | 2018-02-10 07:28 | CP.PCM.PN ---
Subjective - Date & Time of Evaluation Date of Evaluation: 02/10/18 Time of Evaluation: 07:00 - Subjective Subjective: Medicine Note for Hospitalist Service- Dr. Anguiano Patient was seen and examined at bedside. Patient is s/p ORIF elbow, ORIF right hip. Plan is for use of wheelchair, PT is working with her, wheelchair has been ordered. Pain is controlled with PO analgesics. Denied fever, chills, headaches , chest pain, shortness of breath, abdominal pain, n/v/d/c, or urinary symptoms. Objective - Vital Signs/Intake and Output Vital Signs (last 24 hours): Temp Pulse Resp BP Pulse Ox 98.5 F 80 20 153/67 H 97 02/10/18 00:00 02/10/18 00:00 02/10/18 00:00 02/10/18 00:00 02/10/18 00:00 Intake and Output: 02/10/18 02/10/18 06:59 18:59 Intake Total 600 Output Total 1500 Balance -900 - Medications Medications: Current Medications Acetaminophen (Tylenol 325mg Tab) 650 mg PO Q6 PRN PRN Reason: Pain, Mild (1-3) Last Admin: 02/08/18 00:23 Dose: 650 mg Apixaban (Eliquis) 2.5 mg PO BID [facility] Docusate Sodium (Colace) 100 mg PO BID [facility] Last Admin: 02/09/18 19:04 Dose: 100 mg Enalapril Maleate (Vasotec) 40 mg PO DAILY [facility] Last Admin: 02/09/18 10:48 Dose: 40 mg Ergocalciferol (Drisdol 50,000 Intl Units Cap) 1 cap PO Q7D [facility] Last Admin: 02/03/18 10:15 Dose: 1 cap Famotidine (Pepcid) 20 mg PO BID [facility] Last Admin: 02/09/18 19:04 Dose: 20 mg Ondansetron HCl (Zofran Inj) 4 mg IVP Q6 PRN PRN Reason: Nausea/Vomiting Last Admin: 02/04/18 18:08 Dose: 4 mg Oxycodone/Acetaminophen (Percocet 5/325 Mg Tab) 1 tab PO Q6H PRN PRN Reason: Pain, moderate (4-7) Stop: 02/10/18 13:53 Last Admin: 02/09/18 10:45 Dose: 1 tab Oxycodone/Acetaminophen (Percocet 5/325 Mg Tab) 2 tab PO Q6H PRN PRN Reason: Pain, severe (8-10) Stop: 02/11/18 18:07 Last Admin: 02/08/18 22:33 Dose: 2 tab Polyethylene Glycol (Miralax) 17 gm PO DAILY [facility] Last Admin: 02/09/18 10:46 Dose: 17 gm - Labs Labs: 02/09/18 07:38 02/09/18 07:38 PT 11.1 SECONDS (9.7-12.2) 02/01/18 22:00 INR 1.0 02/01/18 22:00 APTT 33 SECONDS (21-34) 02/01/18 22:00 - Additional Findings Additional findings: - Constitutional Appears: No Acute Distress - Head Exam Head Exam: ATRAUMATIC, NORMAL INSPECTION - Eye Exam Eye Exam: EOMI, Normal appearance - ENT Exam ENT Exam: Mucous Membranes Moist - Respiratory Exam Respiratory Exam: Clear to Ausculation Bilateral, NORMAL BREATHING PATTERN - Cardiovascular Exam Cardiovascular Exam: REGULAR RHYTHM, +S1, +S2 - GI/Abdominal Exam GI & Abdominal Exam: Soft, Normal Bowel Sounds. absent: Tenderness Additional comments: surgical site clean, dry, some eschar noted mildine, no pus, no drainage, no erythema, no evidence of cellulitis. Clean/dry/intact - Extremities Exam Additional comments: RUE: +rom fingers/wrist flex/ext, sensation intact to rad/med/ulnar n, cap reil < 2 sec, fingers warm - Neurological Exam Neurological Exam: Alert, Awake, Oriented x3 - Psychiatric Exam Psychiatric exam: Normal Affect, Normal Mood - Skin Skin Exam: Dry, Intact, Normal Color Assessment and Plan - Assessment and Plan (Free Text) Plan: Nondisplaced Right Hip Fracture S/P ORIF Right hip with Dr. Bobby on 02/04/18 - Orthopedics, Dr. Bobby is consulted Imaging: - Hip CT: Nondisplaced intertrochanteric fracture of the right hip with mild impaction. - Hip/ Pelvis Xray: Impacted fracture right femoral neck without dislocation. Degenerative changes are seen the bilateral sacroiliac and right hip joints. Diffuse osteopenia suggests osteoporosis. Prior left partial head replacement identified. - Elbow Xray: Comminuted nondisplaced fracture proximal right ulna through the olecranon process with extensive overlying soft tissue edema throughout the dorsal elbow soft tissues. No dislocation. Management: - Pain management with tylenol, percocet PRN - Zofran prn Medical Clearance: - EKG: NSR @ 65 BPM, NAD, no ST changes - CXR : NAD, Linear atelectatic changes at left lung base with associated elevated left hemidiaphragm. Emphysematous changes. Upper lobe granulomatous changes. Right hilar prominence. Additional mild linear atelectasis at the right lung base. Tortuous aorta. - Labs - cbc, cmp, and coags - WNL - ECHO - LVEF 71 % - Detsky's criteria: Patient is low-medium risk individual for Class I 6% complications - Patient is medically optimized for surgery - Orthopedics and anesthesia to discuss risks and benefits prior to procedure respectively - S/P OR for ORIF elbow, ORIF Right hip with Dr. Bobby on 02/04/18 Olecranon fracture S/P ORIF elbow on 02/04/18 - Orthopedics, Dr. Bobby is consulted - CT Right Upper Extremity: Comminuted minimally displaced intra-articular olecranon fracture - OR for ORIF elbow, ORIF vs THR hip with Dr. Bobby on 02/04/18 HTN - Will start home medication enalapril 40mg PO daily - Hydralazine 10mg IVP Q6H PRN for SBP > 160 mmHg, HR <60 - Patient is on fluids this will also increase BP - ECHO - LVEF 71 % S/P Ventral hernia repair with bowel resection 08/2017 - Wound approximating, healing well - Will continue with medi honey and dressings change daily - Continue to monitor site Prophylaxis - GI: Pepcid - DVT: SCDs, Lovenox - PT/OT Disposition: Due to lack of insurance, pending clearance with PT for OK to discharge home with wheelchair. Lovenox was started 02/05/18 - 02/10/18, Started on Eliquis 2.5 mg PO BID on 02/10/18 to complete total 35 days of VTE s/p orthopedic surgery. (started 02/05/18 last dose on 03/11/18). ADRIAN Anguiano, Yaritza Mckeon DO, PGY-1
[2018-02-10 08:18] LABS: BASO # 0.1 K/uL (0.0-0.2); BASO % 1.2 % (0.0-2.0); EOS # 0.1 K/uL (0.0-0.7); EOS % 2.1 % (0.0-4.0); LYMPH # 1.9 K/uL (1.0-4.3); LYMPH % 28.7 % (20.0-40.0); MEAN CELL VOLUME 86.8 fL (81.0-99.0); MEAN CORPUSCULAR HEMOGLOBIN 29.6 pg (27.0-31.0); MEAN CORPUSCULAR HGB CONC 34.1 g/dL (33.0-37.0); MONO # 0.6 K/uL (0.0-0.8); MONO % 9.3 % (0.0-10.0); NEUT # 3.9 K/uL (1.8-7.0); NEUT % 58.7 % (50.0-75.0); RBC 3.7 Mil/uL (3.80-5.20); RED CELL DISTRIBUTION WIDTH 13.4 % (11.5-14.5); WHITE BLOOD COUNT 6.6 K/uL (4.8-10.8)
[2018-02-10 08:40] LABS: ALBUMIN 3.4 g/dL (3.5-5.0); ALT/SGPT 32 U/L (9-52); AST/SGOT 31 U/L (14-36); BLOOD UREA NITROGEN 17 mg/dL (7-17); CALCIUM 9.5 mg/dl (8.6-10.4); GFR AFRICAN-AMERICAN > 60; GFR NON-AFRICAN AMERICAN > 60
[2018-02-10] MEDS: Oxycodone/Acetaminophen 5/325 mg Tab PO PRN ×3 (09:41→22:18)
[2018-02-10] MEDS: POLYETHYLENE GLYCOL 3350 17 GM/Dose PACKET PO SCH (09:42)
[2018-02-10] MEDS: Ergocalciferol 50,000 Intl Units Cap PO SCH (09:45)
--- NOTE | 2018-02-10 11:58 | CP.PCM.PN ---
Subjective - Date & Time of Evaluation Date of Evaluation: 02/10/18 Time of Evaluation: 11:57 - Subjective Subjective: Patient complaining of hip and elbow pain. No new complaints. Objective - Vital Signs/Intake and Output Vital Signs (last 24 hours): Temp Pulse Resp BP Pulse Ox 98.2 F 60 20 138/55 L 96 02/10/18 07:25 02/10/18 07:25 02/10/18 07:25 02/10/18 10:38 02/10/18 07:25 Intake and Output: 02/10/18 02/10/18 06:59 18:59 Intake Total 600 Output Total 1500 Balance -900 - Medications Medications: Current Medications Acetaminophen (Tylenol 325mg Tab) 650 mg PO Q6 PRN PRN Reason: Pain, Mild (1-3) Last Admin: 02/08/18 00:23 Dose: 650 mg Apixaban (Eliquis) 2.5 mg PO BID [facility] Last Admin: 02/10/18 10:38 Dose: 2.5 mg Docusate Sodium (Colace) 100 mg PO BID [facility] Last Admin: 02/10/18 09:42 Dose: 100 mg Enalapril Maleate (Vasotec) 40 mg PO DAILY [facility] Last Admin: 02/10/18 10:38 Dose: 40 mg Ergocalciferol (Drisdol 50,000 Intl Units Cap) 1 cap PO Q7D [facility] Last Admin: 02/10/18 09:45 Dose: 1 cap Famotidine (Pepcid) 20 mg PO BID [facility] Last Admin: 02/10/18 09:41 Dose: 20 mg Ondansetron HCl (Zofran Inj) 4 mg IVP Q6 PRN PRN Reason: Nausea/Vomiting Last Admin: 02/04/18 18:08 Dose: 4 mg Oxycodone/Acetaminophen (Percocet 5/325 Mg Tab) 1 tab PO Q6H PRN PRN Reason: Pain, moderate (4-7) Stop: 02/10/18 13:53 Last Admin: 02/09/18 10:45 Dose: 1 tab Oxycodone/Acetaminophen (Percocet 5/325 Mg Tab) 2 tab PO Q6H PRN PRN Reason: Pain, severe (8-10) Stop: 02/11/18 18:07 Last Admin: 02/10/18 09:41 Dose: 2 tab Polyethylene Glycol (Miralax) 17 gm PO DAILY [facility] Last Admin: 02/10/18 09:42 Dose: 17 gm - Labs Labs: 02/10/18 08:10 02/10/18 08:10 PT 11.1 SECONDS (9.7-12.2) 02/01/18 22:00 INR 1.0 02/01/18 22:00 APTT 33 SECONDS (21-34) 02/01/18 22:00 - Extremities Exam Additional comments: right elbow: splint changed, incision intact, +ROM fingers/wrist sensation intact, incision intact, no erythema, scant drainage. RLE" +ROM ankle;/toes, sensation intact, +DP/PT pulses incisions intact, scant drainage no erytehma calves soft NT neghomans Assessment and Plan (1) Closed fracture of olecranon process of right ulna Assessment & Plan: cont PT/OT dressing changed orthopedically stable eliquis for VTE proph d/w Dr. Bonilla, agrees with above Status: Acute (2) Closed intertrochanteric fracture of right femur Status: Acute (3) Vitamin D deficiency Status: Chronic
[2018-02-11 07:47] LABS: BASO # 0.1 K/uL (0.0-0.2); BASO % 1.9 % (0.0-2.0); EOS # 0.2 K/uL (0.0-0.7); EOS % 3.7 % (0.0-4.0); HEMOGLOBIN 10.6 g/dL (11.0-16.0); LYMPH # 1.3 K/uL (1.0-4.3); LYMPH % 26.5 % (20.0-40.0); MEAN CELL VOLUME 86.5 fL (81.0-99.0); MEAN CORPUSCULAR HGB CONC 34.7 g/dL (33.0-37.0); MEAN PLATELET VOLUME 7.9 fL (7.2-11.7); MONO # 0.5 K/uL (0.0-0.8); MONO % 10.5 % (0.0-10.0); NEUT # 2.8 K/uL (1.8-7.0); NEUT % 57.4 % (50.0-75.0); RBC 3.54 Mil/uL (3.80-5.20); RED CELL DISTRIBUTION WIDTH 13.3 % (11.5-14.5); WHITE BLOOD COUNT 4.9 K/uL (4.8-10.8)
[2018-02-11 08:05] LABS: ALB/GLOB RATIO 1.1 (1.0-2.1); ALBUMIN 3.8 g/dL (3.5-5.0); ALT/SGPT 22 U/L (9-52); AST/SGOT 36 U/L (14-36); BLOOD UREA NITROGEN 18 mg/dL (7-17); CALCIUM 9.1 mg/dl (8.6-10.4); GFR AFRICAN-AMERICAN > 60; GFR NON-AFRICAN AMERICAN > 60
[2018-02-11 08:09] VITALS: PULSE 68; RESP 18; TEMP 98; O2SAT 96
--- NOTE | 2018-02-11 08:49 | CP.PCM.PN ---
Subjective - Date & Time of Evaluation Date of Evaluation: 02/11/18 Time of Evaluation: 08:46 - Subjective Subjective: patient complaining of right wrist pain after splint change. Also complains of mild hip pain Objective - Vital Signs/Intake and Output Vital Signs (last 24 hours): Temp Pulse Resp BP Pulse Ox 98.0 F 68 18 137/65 96 02/11/18 08:00 02/11/18 08:00 02/11/18 08:00 02/11/18 08:00 02/11/18 08:00 Intake and Output: 02/11/18 02/11/18 06:59 18:59 Intake Total 120 Balance 120 - Medications Medications: Current Medications Acetaminophen (Tylenol 325mg Tab) 650 mg PO Q6 PRN PRN Reason: Pain, Mild (1-3) Last Admin: 02/08/18 00:23 Dose: 650 mg Apixaban (Eliquis) 2.5 mg PO BID [facility] Last Admin: 02/10/18 17:31 Dose: 2.5 mg Docusate Sodium (Colace) 100 mg PO BID [facility] Last Admin: 02/10/18 17:31 Dose: 100 mg Enalapril Maleate (Vasotec) 40 mg PO DAILY [facility] Last Admin: 02/10/18 10:38 Dose: 40 mg Ergocalciferol (Drisdol 50,000 Intl Units Cap) 1 cap PO Q7D [facility] Last Admin: 02/10/18 09:45 Dose: 1 cap Famotidine (Pepcid) 20 mg PO BID [facility] Last Admin: 02/10/18 17:31 Dose: 20 mg Ondansetron HCl (Zofran Inj) 4 mg IVP Q6 PRN PRN Reason: Nausea/Vomiting Last Admin: 02/04/18 18:08 Dose: 4 mg Oxycodone/Acetaminophen (Percocet 5/325 Mg Tab) 2 tab PO Q6H PRN PRN Reason: Pain, severe (8-10) Stop: 02/11/18 18:07 Last Admin: 02/10/18 22:18 Dose: 2 tab Polyethylene Glycol (Miralax) 17 gm PO DAILY [facility] Last Admin: 02/10/18 09:42 Dose: 17 gm - Labs Labs: 02/11/18 07:31 02/11/18 07:31 PT 11.1 SECONDS (9.7-12.2) 02/01/18 22:00 INR 1.0 02/01/18 22:00 APTT 33 SECONDS (21-34) 02/01/18 22:00 - Extremities Exam Additional comments: right hip: small amount serous drainage, sensation intact, no erythema, calves soft NT neghomans +DP/PT pulse +ROM ankle/toes ight elbow: splint changed, patient admits to relief of wrist pain +ROM fingers/ wrist sensation intact, incision intact, no erythema, scant drainage. Assessment and Plan (1) Closed fracture of olecranon process of right ulna Assessment & Plan: POD#7 s/p ORIF right elbow and right hip -ortho stable keep splint dry and intact dressing change right hip daily until dry f/u Dr. Bobby 7-10 days call for appointment cont PT/OT VTE proph eliquis d/w DR. Bobby, agrees with above Status: Acute (2) Closed intertrochanteric fracture of right femur Status: Acute (3) Vitamin D deficiency Status: Chronic
--- NOTE | 2018-02-11 10:14 | CP.PCM.DIS ---
Provider - Provider Date of Admission: 02/01/18 23:19 Attending physician: Marcy Anguiano DO Time Spent in preparation of Discharge (in minutes): 55 Hospital Course - Lab Results Lab Results: Most Recent Lab Values WBC 4.9 K/uL (4.8-10.8) 02/11/18 07:31 RBC 3.54 Mil/uL (3.80-5.20) L 02/11/18 07: Hgb 10.6 g/dL (11.0-16.0) L 02/11/18 07: Hct 30.6 % (34.0-47.0) L 02/11/18 07: MCV 86.5 fL (81.0-99.0) 02/11/18 07: MCH 30.0 pg (27.0-31.0) 02/11/18 07: MCHC 34.7 g/dL (33.0-37.0) 02/11/18 07: RDW 13.3 % (11.5-14.5) 02/11/18 07: Plt Count 395 K/uL (130-400) 02/11/18 07: MPV 7.9 fL (7.2-11.7) 02/11/18 07: Neut % (Auto) 57.4 % (50.0-75.0) 02/11/18 07: Lymph % (Auto) 26.5 % (20.0-40.0) 02/11/18 07: [place] % (Auto) 10.5 % (0.0-10.0) H 02/11/18 07: Eos % (Auto) 3.7 % (0.0-4.0) 02/11/18 07: Baso % (Auto) 1.9 % (0.0-2.0) 02/11/18: Neut # (Auto) 2.8 K/uL (1.8-7.0) 02/11/18 07: Lymph # (Auto) 1.3 K/uL (1.0-4.3) 02/11/18 07: [place] # (Auto) 0.5 K/uL (0.0-0.8) 02/11/18 07: Eos # (Auto) 0.2 K/uL (0.0-0.7) 02/11/18 07:31 Baso # (Auto) 0.1 K/uL (0.0-0.2) 02/11/18 07:31 PT 11.1 SECONDS (9.7-12.2) 02/01/18 22:00 INR 1.0 02/01/18 22:00 APTT 33 SECONDS (21-34) 02/01/18 22:00 Sodium 139 mmol/L (132-148) 02/11/18 07:31 Potassium 4.5 mmol/L (3.6-5.2) 02/11/18 07:31 Chloride 103 mmol/L (98-107) 02/11/18 07:31 Carbon Dioxide 27 mmol/L (22-30) 02/11/18 07:31 Anion Gap 13 (10-20) 02/11/18 07:31 BUN 18 mg/dL (7-17) H 02/11/18 07:31 Creatinine 0.5 mg/dL (0.7-1.2) L 02/11/18 07:31 Est GFR ( Amer) > 60 02/11/18 07:31 Est GFR (Non-Af Amer) > 60 02/11/18 07:31 POC Glucose (mg/dL) 102 mg/dL (65-110) 02/11/18 06:21 Random Glucose 89 mg/dL (65-105) 02/11/18 07:31 Calcium 9.1 mg/dl (8.6-10.4) 02/11/18 07:31 Phosphorus 4.2 mg/dL (2.5-4.5) 02/11/18 07:31 Magnesium 2.1 mg/dL (1.6-2.3) 02/11/18 07:31 Total Bilirubin 0.6 mg/dL (0.2-1.3) 02/11/18 07:31 AST 36 U/L (14-36) 02/11/18 07:31 ALT 22 U/L (9-52) 02/11/18 07:31 Alkaline Phosphatase 153 U/L (38-126) H 02/11/18 07:31 Total Protein 7.1 g/dL (6.3-8.3) 02/11/18 07:31 Albumin 3.8 g/dL (3.5-5.0) 02/11/18 07:31 Globulin 3.4 gm/dL (2.2-3.9) 02/11/18 07:31 Albumin/Globulin Ratio 1.1 (1.0-2.1) 02/11/18 07:31 25-OH Vitamin D Total 14.6 NG/ML (30.0-100.0) L 02/03/18 08:07 Urine Color Yellow (YELLOW) 02/01/18:34 Urine Clarity Clear (Clear) 02/01/18 22: Urine pH 5.0 (5.0-8.0) 02/01/18 22:34 Ur Specific [place] 1.016 (1.003-1.030) 02/01/18: Urine Protein Negative mg/dL (NEGATIVE) 02/01/18:34 Urine Glucose (UA) 1+ mg/dL (Normal) 02/01/18:34 Urine Ketones Negative mg/dL (NEGATIVE) 02/01/18: Urine Blood Negative (NEGATIVE) 02/01/18:34 Urine Nitrate Negative (NEGATIVE) 02/01/18:34 Urine Bilirubin Negative (NEGATIVE) 02/01/18:34 Urine Urobilinogen Normal mg/dL (0.2-1.0) 02/01/18:34 Ur Leukocyte Esterase Neg Brenda/uL (Negative) 02/01/18 22:34 Urine WBC (Auto) 2 /hpf (0-5) 02/01/18:34 Urine RBC (Auto) 1 /hpf (0-3) 02/01/18:34 Urine Bacteria Rare (<OCC) 02/01/18 22:34 Urine Opiates Screen Positive (NEGATIVE) H 02/01/18 22:34 Urine Methadone Screen Negative (NEGATIVE) 02/01/18:34 Ur Barbiturates Screen Negative (NEGATIVE) 02/01/18:34 Ur Phencyclidine Scrn Negative (NEGATIVE) 02/01/18 22:34 Ur Amphetamines Screen Negative (NEGATIVE) 02/01/18 22:34 U Benzodiazepines Scrn Negative (NEGATIVE) 02/01/18:34 U Oth Cocaine Metabols Negative (NEGATIVE) 02/01/18:34 U Cannabinoids Screen Negative (NEGATIVE) 02/01/18 22:34 Blood Type A POSITIVE 02/03/18 08:07 Blood Type Confirm A POSITIVE 02/03/18 08:07 Antibody Screen Negative 02/03/18 08:07 - Hospital Course Hospital Course: Upon Admission: H&P: 82 year old female with past medical history of HTN, diverticulitis, inguinal hernia repair with bowel resection 09/06 presented to hospital after experiencing a fall at home. Patient states that she tripped over an object at home and landed on her right side. Patient denies any LOS, dizziness, lightheadedness. Patient denied having any CP or palpitations when she tripped. Hip and elbow x rays done in ED showed right hip fracture and right olecranon fracture. Currently pt c/o right hip pain 7/10 in severity. Otherwise pt is resting comfortably. Denies having any CP, SOB, pain, N/V/D/C, F/C, cough , [place], tingling, numbness in extremities. Patient does have an open wound in periumbilical region. She states that after her open inguinal hernia repair with bowel resection in 08/2017, she developed an intraabdominal infection which was treated with oral Abx and open wound to be drained. Currently, denies having any drainage or pain at wound site. Pmhx: stated above Sx: inguinal hernia repair with bowel resection 08/2017. Left hip sx Social: former smoker quit 3 yrs ago, denies ETOH or drug use Meds: Enalapril 50 mg po qd NKDA Throughout Hospital Course: Nondisplaced Right Hip Fracture S/P ORIF Right hip with Dr. Bobby on 02/04/18 - Orthopedics, Dr. Bobby is consulted Imaging: - Hip CT: Nondisplaced intertrochanteric fracture of the right hip with mild impaction. - Hip/ Pelvis Xray: Impacted fracture right femoral neck without dislocation. Degenerative changes are seen the bilateral sacroiliac and right hip joints. Diffuse osteopenia suggests osteoporosis. Prior left partial head replacement identified. - Elbow Xray: Comminuted nondisplaced fracture proximal right ulna through the olecranon process with extensive overlying soft tissue edema throughout the dorsal elbow soft tissues. No dislocation. Management: - Pain management with tylenol, percocet PRN - Zofran prn Medical Clearance: - EKG: NSR @ 65 BPM, NAD, no ST changes - CXR : NAD, Linear atelectatic changes at left lung base with associated elevated left hemidiaphragm. Emphysematous changes. Upper lobe granulomatous changes. Right hilar prominence. Additional mild linear atelectasis at the right lung base. Tortuous aorta. - Labs - cbc, cmp, and coags - WNL - ECHO - LVEF 71 % - Detsky's criteria: Patient is low-medium risk individual for Class I 6% complications - Patient is medically optimized for surgery - Orthopedics and anesthesia to discuss risks and benefits prior to procedure respectively - S/P OR for ORIF elbow, ORIF Right hip with Dr. Bobby on 02/04/18 Olecranon fracture S/P ORIF elbow on 02/04/18 - Orthopedics, Dr. Bobby is consulted - CT Right Upper Extremity: Comminuted minimally displaced intra-articular olecranon fracture - OR for ORIF elbow, ORIF vs THR hip with Dr. Bobby on 02/04/18 HTN - Will start home medication enalapril 40mg PO daily - Hydralazine 10mg IVP Q6H PRN for SBP > 160 mmHg, HR <60 - Patient is on fluids this will also increase BP - ECHO - LVEF 71 % S/P Ventral hernia repair with bowel resection 08/2017 - Wound approximating, healing well - Will continue with medi honey and dressings change daily - Continue to monitor site Started on Eliquis 2.5 mg PO BID on 02/10/18 to complete total 35 days of VTE s/ p orthopedic surgery (started 02/05/18 last dose on 03/11/18). Will discharge with 28 days worth of Eliquis. Please review EMR for full record, as this is a brief summary of the patient's hospital course. Discharge Exam - Additional Findings Additional findings: - Constitutional Appears: No Acute Distress - Head Exam Head Exam: ATRAUMATIC, NORMAL INSPECTION - Eye Exam Eye Exam: EOMI, Normal appearance - ENT Exam ENT Exam: Mucous Membranes Moist - Respiratory Exam Respiratory Exam: Clear to Ausculation Bilateral, NORMAL BREATHING PATTERN - Cardiovascular Exam Cardiovascular Exam: REGULAR RHYTHM, +S1, +S2 - GI/Abdominal Exam GI & Abdominal Exam: Soft, Normal Bowel Sounds. absent: Tenderness Additional comments: surgical site clean, dry, some eschar noted mildine, no pus, no drainage, no erythema, no evidence of cellulitis. Clean/dry/intact - Extremities Exam Additional comments: RUE: +rom fingers/wrist flex/ext, sensation intact to rad/med/ulnar n, cap reil < 2 sec, fingers warm - Neurological Exam Neurological Exam: Alert, Awake, Oriented x3 - Psychiatric Exam Psychiatric exam: Normal Affect, Normal Mood - Skin Skin Exam: Dry, Intact, Normal Color Discharge Plan - Discharge Medications Prescriptions: Docusate [Colace] 100 mg PO BID #60 cap Enalapril Maleate [Vasotec] 40 mg PO DAILY #30 tab Ergocalciferol [Drisdol 50,000 Intl Units Cap] 1 cap PO Q7D #4 cap Famotidine [Pepcid] 20 mg PO BID #60 tab Polyethylene Glycol 3350 [Miralax] 17 gm PO DAILY #30 packet - Follow Up Plan Condition: GOOD Disposition: HOME/ ROUTINE Additional Instructions: Please continue to take the following medications: Eliquis 2.5 mg by mouth twice a day for the next 28 days (this is the blood thinner). Please take colace 100mg by mouth twice a day and miralax 17gm once a day - this is to help you move your bowels, to prevent constipation. Please continue to take Vasotec 40mg by mouth every day for your blood pressure. Continue to take Pepcid 20mg by mouth twice a day to help protect your stomach. Please take Ergocalciferol 1 tablet once a week for 4 weeks to help your low vitamin D level. Please continue with care at [facility] for routine check up and for referrals. Please establish [place] care with [facility]. Once you establish care there you can ask for a referral for physical therapy. Dr. Bobby (the orthopedic surgeon) will be able to follow you and take care of you in [place]. Please take care and be well. God bless you! --- Contine tomando los siguientes medicamentos: Eliquis 2,5 mg por va oral dos veces al da jeremy los siguientes 28 alamo ( sheree es el anticoagulante). [place] 100 ml de colace por va oral dos veces al da y 17 gramos de miralax alexandra vez al da; esto es para ayudarlo a java programmer analyst los intestinos, para evitar el estre imiento. Contine tomando Vasotec 40mg por va oral todos los alamo para la presin arterial. Contine tomando Pepcid 20mg por va oral dos veces al da para ayudar a proteger paredes estmago. Por favor, tome Ergocalciferol 1 tableta alexandra vez a la semana jeremy 4 semanas para ayudar a paredes nivel bajo de vitamina D. Contine con cuidado en la [facility] [place] para revisiones de rutina y referencias. Establezca cuidado de carlos manuel con [facility]. Alexandra vez que establezca la atencin all, puede solicitar alexandra referencia para terapia f tad. El Dr. Bobby (el cirujano ortopdico) podr seguirte y cuidarte en [place]. Por favor cudate y estate myla. [place] te bendiga! Referrals: Neftali Bobby III, MD [Staff Provider] - [facility] [place] [Outside]
[2018-02-11] MEDS: POLYETHYLENE GLYCOL 3350 17 GM/Dose PACKET PO SCH (10:15)
[2018-02-11] MEDS: Oxycodone/Acetaminophen 5/325 mg Tab PO PRN (11:11)
[2018-02-11 11:15] VITALS: BP 160/67
== END 2018-02-11 14:31 | disposition home or self-care (01) | DRG 482 ==
LOC: C.ER 21:29 → C.9E 23:19 → C.5S 02-02 07:03
PROVIDERS: ADMIT Hospitalist; ATTEND Hospitalist
PROC: 0QS606Z Reposition Right Upper Femur with Intramedullary Internal Fixation Device, Open Approach (ICD-10-PCS; principal; 2018-02-04 11:00)
PROC: 0PSK04Z Reposition Right Ulna with Internal Fixation Device, Open Approach (ICD-10-PCS; 2018-02-04 11:00)
DX: S72.144A Nondisplaced intertrochanteric fracture of right femur, initial encounter for closed fracture (principal); S52.024A Nondisplaced fracture of olecranon process without intraarticular extension of right ulna, initial encounter for closed fracture; I10 Essential (primary) hypertension; M81.0 Age-related osteoporosis without current pathological fracture; W01.0XXA Fall on same level from slipping, tripping and stumbling without subsequent striking against object, initial encounter; Z79.01 Long term (current) use of anticoagulants; Z87.891 Personal history of nicotine dependence; E55.9 Vitamin D deficiency, unspecified

== ENCOUNTER 2018-12-08 20:49 | Emergency (ER) | payer OTHER ==
[2018-12-08 20:49] VITALS: BMI 21.4
[2018-12-08 20:54] VITALS: RESP 16; TEMP 98.7
--- NOTE | 2018-12-08 21:31 | C.PDOC ---
History Of Present Illness 83 year old female with PMHx of HTN, bowel perforation in 08/2018 with complication due to infection, arthritis, osteoporosis, hip fracture, and elbow fracture, presents with 1 week of LLQ abdominal pain radiating up to her sternum and left shoulder. Patient describes the chest pain as someone sitting on her and a burning sensation. She reports some constipation but otherwise denies Hx of similar, SOB, palpitations, nausea, vomiting, fever, or chills. Patient takes enalapril, seen at the clinic. Time Seen by Provider: 12/08/18 21:07 Chief Complaint (Nursing): Abdominal Pain History Per: Patient History/Exam Limitations: no limitations Onset/Duration Of Symptoms: Days Current Symptoms Are (Timing): Still Present Location Of Pain/Discomfort: LLQ Radiation Of Pain To:: Chest, Other (Shoulder) Quality Of Discomfort: Burning, Other ("someone sitting on her") Associated Symptoms: Chest Pain, Constipation, Other (Abdominal pain. No SOB or palpitations.). denies: Fever, Chills, Nausea, Vomiting Exacerbating Factors: None Alleviating Factors: None Recent travel outside of the [place]: No Abnormal Vaginal Bleeding: No Past Medical History Reviewed: Historical Data, Nursing Documentation, Vital Signs Vital Signs: Last Vital Signs Temp 98.7 F 12/08/18 20:52 Pulse 79 12/08/18 20:52 Resp 16 12/08/18 20:52 BP 180/103 H 12/08/18 20:52 Pulse Ox 97 12/08/18 20:52 - Medical History PMH: Fractures, HTN, Osteoporosis Denies: Chronic Kidney Disease - [facility] Procedures REPOSITION R UP FEMUR WITH INTRAMED FIX, OPEN APPROACH (02/01/18) REPOSITION RIGHT ULNA WITH INT FIX, OPEN APPROACH (02/01/18) Family History: States: Unknown Family Hx - Social History Hx Alcohol Use: No Hx Substance Use: No - Immunization History Hx Tetanus Toxoid Vaccination: No Hx Influenza Vaccination: No Hx Pneumococcal Vaccination: No Review Of Systems Except As Marked, All Systems Reviewed And Found Negative. Cardiovascular: Positive for: Chest Pain Gastrointestinal: Positive for: Abdominal Pain, Constipation Physical Exam - Physical Exam Appears: Non-toxic Skin: Normal Color, Warm Head: Atraumatic, Normacephalic Eye(s): bilateral: Normal Inspection Oral Mucosa: Moist Neck: Normal, Supple Chest: Symmetrical, No Tenderness Cardiovascular: Rhythm Regular Respiratory: Normal Breath Sounds, No Rales, No Rhonchi, No Wheezing Gastrointestinal/Abdominal: Soft, Tenderness (RUQ, LLQ), No Guarding, No Rebound Neurological/Psych: Oriented x3, Normal Speech ED Course And Treatment - Laboratory Results Result Diagrams: 12/08/18 21:36 12/08/18 21:36 ECG: Interpreted By Me, Viewed By Me (sinus rhythm 73bpm, normal axis, PACs, no acute ST/T wave changes) ECG Interpretation: No Acute Changes O2 Sat by Pulse Oximetry: 97 (Room air) Pulse Ox Interpretation: Normal - CT Scan/US CT CHEST/ABD/PELVIS Other Rad Studies (CT/US): Read By Radiologist, Radiology Report Reviewed CT/US Interpretation: Name:JAMEEL BOLES Exam Date:Dec 09, 2018 12:43:45 AM EDT. Modality Type:CT. Description:CT - CHEST, ABDOMEN & PELVIS WITH CORONAL AND SAGITTAL MPRS. Gender:F Laterality:Not applicable. :34 Referring Physician:Caitlin Mccabe (DO). CTA OF THE CHEST ABDOMEN AND PELVIS WITH IV CONTRAST. CLINICAL HISTORY: PATIENT WITH HX OF LEFT SIDED FLANK PAIN THAT RADIATES UP TO MID CHEST NAUSEA HX OF BOWEL PERFORATION (Hx). TECHNIQUE: Axial and reformatted sagittal and coronal images of the chest , abdomen and pelvis obtained after bolus IV contrast administration. FINDINGS: Mild thyromegaly without the tracheal deviation or narrowing. Bilateral basilar subsegmental atelectatic pulmonary changes. Normal enhancement of the main pulmonary artery and right and left pulmonary arteries. Normal enhancement of the bilateral peripheral pulmonary arteries. There is no demonstrated pulmonary embolism. Normal thoracic aorta and vis ualized great vessels. There is no demonstrated aortic dissection. Normal heart and pericardium. Normal mediastinum. Normal hilar regions. Normal visualized trachea and bronchi. Normal pleura. Normal chest wall structures. Normal liver. Normal gallbladder and extrahepatic biliary system. Normal spleen. Normal pancreas. . Normal bilateral adrenal glands. Normal size of the right kidney. There is no right renal mass. There are no right renal calculi. There is no right hydronephrosis. Normal visualized right ureter. Normal size of the left kidney. There is no left renal mass. There are no left renal calculi. There is no left hydronephrosis. Normal visualized left ureter. Diffuse thickening of the stomach. Normal small intestine. Uncomplicated diverticulosis of the colon. The appendix is visualized and appears normal. There is no demonstrated peritoneal fluid. Calcified atheromatous plaques of the abdominal aorta. Normal inferior vena cava. Normal retroperitoneum. . Normal urinary bladder. There is no pelvic mass lesion or lymphadenopathy. There is no pelvic fluid. . Normal abdominal wall. Unremarkable metallic hardware of the hips. Grade 1 anterolisthesis of L5 on S1. IMPRESSION: No demonstrated pulmonary embolism or arterial dissection. Mild thyroomegaly. Bilateral basilar subsegmental atelectatic pulmonary changes. Uncomplicated colonic diverticulosis. Gastritis. Constipation. . Electronically signed on Dec 09, 2018 2:53:10 AM EDT by: Perico Yeung M.D., Certified by ABR, MSK, Neuroradiology. Progress Note: Blood work, EKG, obs series, UA, CT chest/abd/pelvis ordered and reviewed. Patient given low dose IV morphine. Disposition Counseled Patient/Family Regarding: Studies Performed, Diagnosis, Need For Followup, Rx Given - Disposition Referrals: [facility] [Outside] Disposition: HOME/ ROUTINE Disposition Time: 03:00 Condition: STABLE Additional Instructions: FOLLOW UP WITH YOUR DOCTOR/CLINIC IN 1-2 DAYS USE MEDICATIONS DIRECTED RETURN TO EMERGENCY ROOM IF YOUR SYMPTOMS BECOME WORSE SEGUIR CON SEGURA MDICO / CLNICA EN 1-2 TSANG UTILICE MEDICAMENTOS RICK SE DIRIGE VUELVA A LA NATALEE DE EMERGENCIA SI EDGAR SNTOMAS SE HACEN PEOR Prescriptions: Acetaminophen [Tylenol 325mg tab] 650 mg PO Q6 PRN #30 tab PRN Reason: pain/fever Magnesium Citrate [Citrate of Mag] 300 ml PO ONCE PRN #1 bottle PRN Reason: Constipation Instructions: Gastritis (DC), Constipation, Adult (DC), High Fiber Diet Forms: [employer] ([place] Islander) Print Language: VIETNAMESE - Clinical Impression Clinical Impression: Gastritis, Constipation - Scribe Statement The provider has reviewed the documentation as recorded by the Scribmorgan Andrews All medical record entries made by the Scribe were at my direction and personally dictated by me. I have reviewed the chart and agree that the record accurately reflects my personal performance of the history, physical exam, medical decision making, and the department course for this patient. I have also personally directed, reviewed, and agree with the discharge instructions and dis position.
[2018-12-08 21:40] LABS: BASO # 0.1 K/uL (0.0-0.2); BASO % 1.1 % (0.0-2.0); EOS # 0.1 K/uL (0.0-0.7); EOS % 1.1 % (0.0-4.0); HEMOGLOBIN 12.9 g/dL (11.0-16.0); LYMPH # 2.1 K/uL (1.0-4.3); LYMPH % 28.1 % (20.0-40.0); MEAN CELL VOLUME 88.2 fL (81.0-99.0); MEAN CORPUSCULAR HEMOGLOBIN 28.6 pg (27.0-31.0); MEAN CORPUSCULAR HGB CONC 32.4 g/dL (33.0-37.0); MEAN PLATELET VOLUME 9.3 fL (7.2-11.7); MONO # 0.7 K/uL (0.0-0.8); MONO % 9.4 % (0.0-10.0); NEUT # 4.4 K/uL (1.8-7.0); NEUT % 60.3 % (50.0-75.0); RBC 4.53 Mil/uL (3.80-5.20); RED CELL DISTRIBUTION WIDTH 14.4 % (11.5-14.5); WHITE BLOOD COUNT 7.3 K/uL (4.8-10.8)
[2018-12-08 21:53] LABS: ALB/GLOB RATIO 1.6 (1.0-2.1); ALBUMIN 4.5 g/dL (3.5-5.0); ALT/SGPT 9 U/L (9-52); AST/SGOT 25 U/L (14-36); BLOOD UREA NITROGEN 20 mg/dL (7-17); CALCIUM 9.7 mg/dl (8.6-10.4); GFR NON-AFRICAN AMERICAN > 60; LIPASE 214 U/L (23-300)
[2018-12-08 22:04] LABS: CK-MB 1.53 ng/mL (0.0-3.38)
[2018-12-08] MEDS ORDERED: Iohexol 240 (50 ml) PO STA (22:06)
[2018-12-08 22:15] LABS: SQUAMOUS EPITHIAL < 1 /hpf (0-5); URINE BACTERIA RARE (<OCC); URINE BILIRUBIN NEGATIVE (NEGATIVE); URINE BLOOD NEGATIVE (NEGATIVE); URINE CLARITY Clear (Clear); URINE COLOR Straw (YELLOW); URINE GLUCOSE (UA) NORMAL (Normal); URINE LEUKOCYTE ESTERASE TRACE Leu/uL (Negative); URINE PROTEIN NEGATIVE (NEGATIVE); URINE UROBILINOGEN NORMAL mg/dL (0.2-1.0)
[2018-12-08] MEDS ORDERED: Iohexol 240 (50 ml) ONE (22:18)
[2018-12-09] MEDS ORDERED: Iodixanol 320 MG/ML 100 ML BOTTLE IV ONE (00:25)
[2018-12-09 03:14] VITALS: BP 164/90; PULSE 90; O2SAT 98
--- NOTE | 2018-12-09 12:43 | RAD ---
Date of service: 12/08/2018 PROCEDURE: Radiographs of the chest and abdomen (obstructive series) HISTORY: chest/abd pain COMPARISON: No prior. TECHNIQUE: AP radiograph of the chest, with upright and supine radiographs of the abdomen. FINDINGS: CHEST: Lungs: The lungs are well inflated and clear. Cardiovascular: Normal size heart. No pulmonary vascular congestion. No aortic atherosclerotic calcification present Pleura: No pleural fluid. No pneumothorax. Other findings: None. ABDOMEN AND PELVIS: Bowel: There is moderate amount of stool in the colon. No evidence of obstruction. Free air: None. Bones: Status post open reduction and internal fixation of right proximal femoral fracture and status post left hip arthroplasty. Other findings: None. IMPRESSION: Constipation. Nonobstructive nonspecific bowel gas pattern. Clear lungs.
--- NOTE | 2018-12-09 14:08 | CT ---
Date of service: 12/09/2018 PROCEDURE: CT Chest, Abdomen and Pelvis with intravenous contrast HISTORY: Chest and abdominal pain, nausea, history of bowel perf COMPARISON: No prior study available comparison TECHNIQUE: Contiguous helical/transaxial sections of the chest abdomen pelvis performed in standard fashion following oral and intravenous injection of approximately 100 cc Visipaque 320 contrast material. Additional 2D sagittal coronal reformats generated.. Radiation dose: Total exam DLP = 438.45 mGy-cm. This CT exam was performed using one or more of the following dose reduction techniques: Automated exposure control, adjustment of the mA and/or kV according to patient size, and/or use of iterative reconstruction technique. FINDINGS: CT CHEST WITH CONTRAST: LUNGS: Mild atelectasis/scarring changes seen both lung bases. MEDIASTINUM: Heart is enlarged. No significant pericardial effusion. The at ascending thoracic aorta measures approximately 3.1 cm and descending thoracic aorta measures approximately 2.4 cm. Minimal aortic calcified atherosclerotic plaque. Pulmonary trunk measures approximately 2.56 cm. LYMPH NODES: No significant mediastinal or hilar adenopathy.. Suspect prominent unopacified crossing azygos vein.. Trachea midline and patent with no large central endoluminal lesions. PLEURA: Unremarkable. No pneumothorax. No pleural fluid. BONES: Mild multilevel degenerative spondylosis of the thoracic spine.. There is slight OTHER FINDINGS: None. CT ABDOMEN AND PELVIS: LIVER: Liver is mildly enlarged measuring over 19 cm in CC dimension.. Mild fatty hepatic infiltration. No obvious hepatic mass collection or calcification. Portal and splenic veins are opacified. GALLBLADDER AND BILE DUCTS: Unremarkable. PANCREAS: Pancreas is slightly atrophic and fatty replaced. SPLEEN: Unremarkable. ADRENALS: Mildly enlarged hypoplastic appearing adrenal glands. KIDNEYS AND URETERS: Kidneys demonstrate symmetric nephrograms. No evidence of nephrolithiasis or hydronephrosis. VASCULATURE: There is aortic atherosclerotic calcification or mural plaque present. No aortic aneurysm. BOWEL: Evaluation bowel is limited due to incomplete opacification stomach is incompletely distended with thick-walled appearance.. . Visualized loops of small bowel exhibit normal contour and caliber. No evidence of acute mechanical small bowel obstruction. There is a large amount of stool seen throughout the colon consistent with fecal retention/constipation. Scattered colonic diverticula are present the bulk which arise from the sigmoid and distal descending colon. No definitive radiographic evidence of acute diverticulitis. APPENDIX: Normal appendix. PERITONEUM: Unremarkable. No free fluid. No free air. There is a small to medium-sized umbilical hernia that contains a knuckle of unobstructed small bowel. LYMPH NODES: Unremarkable. No enlarged lymph nodes. BLADDER: Urinary bladder is physiologically distended. The inferior margin of the urinary bladder partially obscured by left total hip replacement and fixation hardware right hip. REPRODUCTIVE: Hysterectomy. BONES: Mild multilevel degenerative spondylosis. Slight anterior subluxation L5 over S1 felt to be due to hypertrophic facets as no definitive pars defects are identified this level. OTHER FINDINGS: None. IMPRESSION: Mild atelectasis/scarring changes seen both lung bases. Hepatomegaly with mild fatty infiltration. Diverticulosis without radiographic evidence of acute diverticulitis. Mild hyperplastic appearing adrenal glands. Hysterectomy. Small to medium-sized ventral wall hernia containing a knuckle of unobstructed small bowel.
--- NOTE | 2018-12-09 15:32 | CARD ---
APPROVED REPORT Date of service: 12/08/2018 EKG Measurement Heart [id number] <Conclusion> Sinus rhythm with premature atrial complexes Nonspecific ST and T wave abnormality Abnormal ECG
== END 2018-12-09 03:14 | disposition home or self-care (01) ==
LOC: C.ER 20:49
DX: K29.70 Gastritis, unspecified, without bleeding (principal); K59.00 Constipation, unspecified; I10 Essential (primary) hypertension
CPT/HCPCS: 71260; 74022; 74177; 80053; 81001; 82550; 82553; 83690; 84484; 85025; 93005; 96374; 99285; J2270; Q9966; Q9967

== ENCOUNTER 2019-02-02 14:52 | Observation (INO) | payer OTHER ==
[2019-02-02 15:06] VITALS: BMI 23.8
[2019-02-02 15:51] LABS: BASO # 0.1 K/uL (0.0-0.2); BASO % 0.9 % (0.0-2.0); EOS % 0.8 % (0.0-4.0); HEMOGLOBIN 14.3 g/dL (11.0-16.0); LYMPH # 1.8 K/uL (1.0-4.3); LYMPH % 31.9 % (20.0-40.0); MEAN CELL VOLUME 88.6 fL (81.0-99.0); MEAN CORPUSCULAR HGB CONC 32.8 g/dL (33.0-37.0); MEAN PLATELET VOLUME 8.9 fL (7.2-11.7); MONO # 0.4 K/uL (0.0-0.8); MONO % 7.5 % (0.0-10.0); NEUT # 3.3 K/uL (1.8-7.0); NEUT % 58.9 % (50.0-75.0); NRBC % 0.1 % (0.0-2.0); RBC 4.94 Mil/uL (3.80-5.20); RED CELL DISTRIBUTION WIDTH 14.4 % (11.5-14.5); WHITE BLOOD COUNT 5.5 K/uL (4.8-10.8)
--- NOTE | 2019-02-02 16:02 | C.PDOC ---
History Of Present Illness 83-year-old female, whose past medical history includes hypertension, presents to the ED for evaluation of mid-sternal anterior chest wall pain that has been occurring daily over the past 3 months. Patient states she experiences pain four times today, prompting her to visit the clinic. Patient was referred to the ED by clinic for further evaluation. Patient also reports increased salivation. Otherwise, she denies diaphoresis, shortness of breath, nausea and vomiting. Time Seen by Provider: 02/02/19 15:19 Chief Complaint (Nursing): Chest Pain History Per: Patient History/Exam Limitations: no limitations Onset/Duration Of Symptoms: Hrs, Other (3 months ) Current Symptoms Are (Timing): Still Present Quality: "Pain" Additional History Per: Patient Past Medical History Reviewed: Historical Data, Nursing Documentation, Vital Signs Vital Signs: Last Vital Signs Temp 98.6 F 02/02/19 15:06 Pulse 57 L 02/02/19 15:06 Resp 18 02/02/19 15:06 BP 189/82 H 02/02/19 15:06 Pulse Ox 97 02/02/19 15:06 Primary Care Provider: Clinic,Med Surg - Medical History PMH: Fractures, HTN, Osteoporosis Denies: Chronic Kidney Disease Surgical History: No Surg Hx - [facility] Procedures REPOSITION R UP FEMUR WITH INTRAMED FIX, OPEN APPROACH (02/01/18) REPOSITION RIGHT ULNA WITH INT FIX, OPEN APPROACH (02/01/18) Family History: States: Unknown Family Hx - Social History Hx Alcohol Use: No Hx Substance Use: No - Immunization History Hx Tetanus Toxoid Vaccination: No Hx Influenza Vaccination: No Hx Pneumococcal Vaccination: No Review Of Systems Constitutional: Negative for: Sweats Cardiovascular: Positive for: Chest Pain (mid-sternal, anterior ) Respiratory: Negative for: Shortness of Breath Gastrointestinal: Negative for: Nausea, Vomiting Physical Exam - Physical Exam Appears: Non-toxic, No Acute Distress Skin: Normal Color, Warm, Dry Head: Atraumatic, Normacephalic Eye(s): bilateral: Normal Inspection Oral Mucosa: Moist Neck: Supple Chest: Symmetrical, No Deformity, No Tenderness Cardiovascular: Rhythm Regular, No Murmur Respiratory: Normal Breath Sounds, No Rales, No Rhonchi, No Wheezing Extremity: Normal ROM, Capillary Refill (less than 2 seconds ) Neurological/Psych: Oriented x3, Normal Speech, Normal Cognition ED Course And Treatment - Laboratory Results Result Diagrams: 02/02/19 15:45 02/02/19 15:45 Lab Interpretation: No Acute Changes ECG: Interpreted By Me ECG Rhythm: Sinus Bradycardia ECG Interpretation: No Acute Changes O2 Sat by Pulse Oximetry: 97 (on RA) Pulse Ox Interpretation: Normal - Radiology CXR: Interpreted by Me, Viewed By Me, Read By Radiologist CXR Interpretation: Yes: No Acute Disease Progress Note: Bloodwork, CXR, EKG ordered and reviewed. Aspirin PO given. 16:35 Patient c/o onset of chest pain while in ED. Repeat EKG ordered and juanito ent treated with NTG SL. EKG continues to show sinus remy but now has nonspecific ST/T changes. Pain relieved after NTG. Reevaluation Time: 17:46 Reassessment Condition: Improved - Physician Consult Information Time Consulting Physician Contacted: 17:38 Physician Contacted: Jonel Naik Outcome Of Conversation: Patient to be admitted to [facility] for cardiac observation. Disposition - Disposition Disposition: HOSPITALIZED Disposition Time: 17:47 Condition: STABLE - POA Present On Arrival: None - Clinical Impression Clinical Impression: Chest pain - Scribe Statement The provider has reviewed the documentation as recorded by the Scribe (Monica Naik) Provider Attestation: All medical record entries made by the Scribe were at my direction and personally dictated by me. I have reviewed the chart and agree that the record accurately reflects my personal performance of the history, physical exam, medical decision making, and the department course for this patient. I have also personally directed, reviewed, and agree with the discharge instructions and disposition.
[2019-02-02 16:19] LABS: ALB/GLOB RATIO 1.2 (1.0-2.1); ALBUMIN 4.9 g/dL (3.5-5.0); ALT/SGPT 22 U/L (9-52); AST/SGOT 34 U/L (14-36); BLOOD UREA NITROGEN 15 mg/dL (7-17); CALCIUM 10.4 mg/dl (8.6-10.4); GFR NON-AFRICAN AMERICAN > 60
--- NOTE | 2019-02-02 17:06 | RAD ---
Date of service: 02/02/2019 PROCEDURE: CHEST RADIOGRAPH, 1 VIEW HISTORY: chest pain COMPARISON: 08/25/2018 FINDINGS: LUNGS: Clear. PLEURA: No pneumothorax or pleural fluid seen. CARDIOVASCULAR: No aortic atherosclerotic calcification present. Normal. OSSEOUS STRUCTURES: No significant abnormalities. VISUALIZED UPPER ABDOMEN: Normal. OTHER FINDINGS: None. IMPRESSION: No active disease.
[2019-02-02 18:47] LABS: BARBITURATES, UR NEGATIVE (NEGATIVE); BENZODIAZEPINES, UR NEGATIVE (NEGATIVE); OPIATES, UR NEGATIVE (NEGATIVE); PHENCYCLIDINE, UR NEGATIVE (NEGATIVE)
--- NOTE | 2019-02-02 19:23 | CP.PCM.HP ---
<Liv Boo - Last Filed: 02/02/19 20:30> History of Present Illness - History of Present Illness History of Present Illness: cc: chest tightness Patient is an 83 year old female with pmhx of HTN, diverticulitis who presents to ED accompanied by family, with complaints of daily chest discomfort for the past 3 months. Patient reports retro-sternal tightness that then radiates to arms bilaterally and up her neck. She reports approximately 4 episodes daily, lasting approximately 10 minutes, not associated with activity or position; denies dizziness, SOB, or nausea. Patient reports compliance with enalapril as ordered, however does not follow up with a PMD regularly. Patient reports last episode of chest discomfort in ED relieved with nitro, repeat EKG revealed non- specific ST/T wave changes from prior reading NSR. Denies further complaints. pmhx: HTN, diverticulitis pshx: colon resection 2/2 perf diverticulitis, R and L hip, left arm orthopedic surgery meds: enalapril allergies: NKDA sochx: former light smoker ~15 yrs, quit 3 yrs ago. Denies alcohol/drug use. Lives w/ son famhx: denies Present on Admission - Present on Admission Any Indicators Present on Admission: No Review of Systems - Constitutional Constitutional: absent: Chills, Fever, Weakness - EENT Eyes: absent: Blurred Vision, Change in Vision - Cardiovascular Cardiovascular: Chest Pain. absent: Chest Pain with Activity, Lightheadedness, Orthopnea, Palpitations, Syncope - Respiratory Respiratory: absent: Cough, Dyspnea, Dyspnea on Exertion - Gastrointestinal Gastrointestinal: absent: Abdominal Pain, Constipation, Diarrhea, Nausea - Genitourinary Genitourinary: absent: Difficulty Urinating, Dysuria - Musculoskeletal Musculoskeletal: Arthralgias. absent: Numbness - Neurological Neurological: absent: Dizziness, Syncope, Weakness - Psychiatric Psychiatric: absent: Anxiety, Panic Attacks Past Patient History - Past Medical History & Family History Past Medical History?: Yes - Past Social History Smoking Status: Former Smoker - CARDIAC Hx Hypertension: Yes - PULMONARY Hx Respiratory Disorders: No - NEUROLOGICAL Hx Neurological Disorder: No - HEENT Hx HEENT Problems: No - RENAL Hx Chronic Kidney Disease: No - ENDOCRINE/METABOLIC Hx Endocrine Disorders: No - HEMATOLOGICAL/ONCOLOGICAL Hx Blood Disorders: No Hx Blood Transfusions: No - INTEGUMENTARY Hx Dermatological Problems: No - MUSCULOSKELETAL/RHEUMATOLOGICAL Hx Fractures: Yes Hx Osteoporosis: Yes - GASTROINTESTINAL Hx Gastrointestinal Disorders: Yes Hx Bowel Surgery: Yes Other/Comment: colon Sx 08/2017 - GENITOURINARY/GYNECOLOGICAL Hx Genitourinary Disorders: No - PSYCHIATRIC Hx Substance Use: No - SURGICAL HISTORY Hx Surgeries: Yes Hx Orthopedic Surgery: Yes (Right intertroch ORIF/Right olecranon ORIF 02/04/2018) Other/Comment: colon surgery 08/2017. bilateral hip surgery - ANESTHESIA Hx Anesthesia: Yes Hx Anesthesia Reactions: No Hx Malignant Hyperthermia: No Meds Allergies/Adverse Reactions: Allergies Allergy/AdvReac Type Severity Reaction Status Date / Time No Known Allergies Allergy Verified 02/02/19 15:05 Physical Exam - Constitutional Appears: Non-toxic, No Acute Distress - Head Exam Head Exam: ATRAUMATIC, NORMAL INSPECTION, NORMOCEPHALIC - Eye Exam Eye Exam: EOMI, Normal appearance Pupil Exam: NORMAL ACCOMODATION, PERRL - ENT Exam ENT Exam: Mucous Membranes Moist, Normal Exam - Neck Exam Neck exam: Positive for: Normal Inspection - Respiratory Exam Respiratory Exam: Decreased Breath Sounds, Clear to Auscultation Bilateral, NORMAL BREATHING PATTERN. absent: Respiratory Distress - Cardiovascular Exam Cardiovascular Exam: Bradycardia, REGULAR RHYTHM, +S1, +S2. absent: JVD, Systolic Murmur Additional comments: no carotid bruit - GI/Abdominal Exam GI & Abdominal Exam: Normal Bowel Sounds, Soft. absent: Distended, Tenderness - Extremities Exam Extremities exam: Positive for: normal inspection. Negative for: calf tenderness, pedal edema - Back Exam Back exam: NORMAL INSPECTION - Neurological Exam Neurological exam: Alert, Oriented x3 - Psychiatric Exam Psychiatric exam: Normal Affect, Normal Mood - Skin Skin Exam: Dry, Intact, Normal Color, Warm Results - Vital Signs Recent Vital Signs: Last Vital Signs Temp 97.7 F 02/02/19 18:06 Pulse 58 L 02/02/19 18:06 Resp 14 02/02/19 18:06 BP 159/69 H 02/02/19 18:06 Pulse Ox 97 02/02/19 18:06 - Labs Result Diagrams: 02/02/19 15:45 02/02/19 15:45 Labs: Laboratory Results - last 24 hr 02/02/19 02/02/19 02/02/19 15:45 15:45 18:19 WBC 5.5 RBC 4.94 Hgb 14.3 Hct 43.8 MCV 88.6 MCH 29.0 MCHC 32.8 L RDW 14.4 Plt Count 226 MPV 8.9 Neut % (Auto) 58.9 Lymph % (Auto) 31.9 Whitman % (Auto) 7.5 Eos % (Auto) 0.8 Baso % (Auto) 0.9 Neut # (Auto) 3.3 Lymph # (Auto) 1.8 Whitman # (Auto) 0.4 Eos # (Auto) 0.0 Baso # (Auto) 0.1 Sodium 139 Potassium 4.3 Chloride 103 Carbon Dioxide 26 Anion Gap 14 BUN 15 Creatinine 0.6 L Est GFR ( Amer) > 60 Est GFR (Non-Af Amer) > 60 Random Glucose 90 D Calcium 10.4 Total Bilirubin 0.5 AST 34 ALT 22 Alkaline Phosphatase 107 Troponin I < 0.0120 Total Protein 9.0 H Albumin 4.9 Globulin 4.1 H Albumin/Globulin Ratio 1.2 Urine Opiates Screen Negative Urine Methadone Screen Negative Ur Barbiturates Screen Negative Ur Phencyclidine Scrn Negative Ur Amphetamines Screen Negative U Benzodiazepines Scrn Negative U Oth Cocaine Metabols Negative U Cannabinoids Screen Negative Assessment & Plan (1) Chest tightness Assessment and Plan: R/O ACS -EKG initial: NSR; repeat s/p episode: non-specific ST/T wave changes in ED -trop negative x1 -symptomatic relief w/ nitro -monitor on telemetry -f/u repeat trops -f/u BNP, CK-MB, lipid, TSH/T4, hgb a1c -f/u echo -f/u morning EKG -start ASA, crestor -nitro SL prn, anginal symptoms -HHD, low fat/Na+ -Cardio consult, Dr. Dyer Status: Acute (2) HTN (hypertension) Assessment and Plan: -resume home enalapril -HHD, low Na+ Status: Chronic (3) Prophylactic measure Assessment and Plan: -GI: pepcid -VTE: heparin 5000 q8, SCDs Status: Acute - Assessment and Plan (Free Text) Assessment: 83 year old female admitted for evaluation of chest discomfort, abnormal EKG Plan: Discussed w/ Dr. Greco -Liv Boo, PGY-1 <Nito Greco - Last Filed: 02/03/19 06:01> Results - Vital Signs Recent Vital Signs: Last Vital Signs Temp 97.9 F 02/03/19 04:24 Pulse 56 L 02/03/19 04:24 Resp 20 02/03/19 04:24 BP 142/74 02/03/19 04:24 Pulse Ox 96 02/03/19 04:24 - Labs Result Diagrams: 02/03/19 03:55 02/03/19 03:55 Labs: Laboratory Results - last 24 hr 02/02/19 02/02/19 02/02/19 15:45 15:45 18:19 WBC 5.5 RBC 4.94 Hgb 14.3 Hct 43.8 MCV 88.6 MCH 29.0 MCHC 32.8 L RDW 14.4 Plt Count 226 MPV 8.9 Neut % (Auto) 58.9 Lymph % (Auto) 31.9 Whitman % (Auto) 7.5 Eos % (Auto) 0.8 Baso % (Auto) 0.9 Neut # (Auto) 3.3 Lymph # (Auto) 1.8 Whitman # (Auto) 0.4 Eos # (Auto) 0.0 Baso # (Auto) 0.1 Sodium 139 Potassium 4.3 Chloride 103 Carbon Dioxide 26 Anion Gap 14 BUN 15 Creatinine 0.6 L Est GFR ( Amer) > 60 Est GFR (Non-Af Amer) > 60 Random Glucose 90 D Calcium 10.4 Phosphorus Magnesium Total Bilirubin 0.5 AST 34 ALT 22 Alkaline Phosphatase 107 CK-MB (Mass) Troponin I < 0.0120 NT-Pro-B Natriuret Pep Total Protein 9.0 H Albumin 4.9 Globulin 4.1 H Albumin/Globulin Ratio 1.2 Triglycerides Cholesterol LDL Cholesterol Direct HDL Cholesterol Free T4 TSH 3rd Generation Urine Opiates Screen Negative Urine Methadone Screen Negative Ur Barbiturates Screen Negative Ur Phencyclidine Scrn Negative Ur Amphetamines Screen Negative U Benzodiazepines Scrn Negative U Oth Cocaine Metabols Negative U Cannabinoids Screen Negative 02/02/19 02/03/19 02/03/19 21:55 03:55 03:55 WBC 4.8 RBC 4.49 Hgb 13.0 Hct 39.7 MCV 88.4 MCH 28.9 MCHC 32.7 L RDW 14.3 Plt Count 196 MPV 9.3 Neut % (Auto) 54.5 Lymph % (Auto) 32.9 Whitman % (Auto) 9.8 Eos % (Auto) 1.7 Baso % (Auto) 1.1 Neut # (Auto) 2.6 Lymph # (Auto) 1.6 Whitman # (Auto) 0.5 Eos # (Auto) 0.1 Baso # (Auto) 0.1 Sodium 138 Potassium 4.1 Chloride 107 Carbon Dioxide 24 Anion Gap 11 BUN 18 H Creatinine 0.5 L Est GFR ( Amer) > 60 Est GFR (Non-Af Amer) > 60 Random Glucose 98 Calcium 9.5 Phosphorus 4.1 Magnesium 2.0 Total Bilirubin AST ALT Alkaline Phosphatase CK-MB (Mass) 2.22 Troponin I < 0.0120 < 0.0120 NT-Pro-B Natriuret Pep 410 Total Protein Albumin Globulin Albumin/Globulin Ratio Triglycerides 108 Cholesterol 172 LDL Cholesterol Direct 81 HDL Cholesterol 69 Free T4 TSH 3rd Generation 2.96 Urine Opiates Screen Urine Methadone Screen Ur Barbiturates Screen Ur Phencyclidine Scrn Ur Amphetamines Screen U Benzodiazepines Scrn U Oth Cocaine Metabols U Cannabinoids Screen 02/03/19 03:55 WBC RBC Hgb Hct MCV MCH MCHC RDW Plt Count MPV Neut % (Auto) Lymph % (Auto) Whitman % (Auto) Eos % (Auto) Baso % (Auto) Neut # (Auto) Lymph # (Auto) Whitman # (Auto) Eos # (Auto) Baso # (Auto) Sodium Potassium Chloride Carbon Dioxide Anion Gap BUN Creatinine Est GFR ( Amer) Est GFR (Non-Af Amer) Random Glucose Calcium Phosphorus Magnesium Total Bilirubin AST ALT Alkaline Phosphatase CK-MB (Mass) Troponin I NT-Pro-B Natriuret Pep Total Protein Albumin Globulin Albumin/Globulin Ratio Triglycerides Cholesterol LDL Cholesterol Direct HDL Cholesterol Free T4 1.10 TSH 3rd Generation Urine Opiates Screen Urine Methadone Screen Ur Barbiturates Screen Ur Phencyclidine Scrn Ur Amphetamines Screen U Benzodiazepines Scrn U Oth Cocaine Metabols U Cannabinoids Screen Assessment & Plan - Date & Time Date: 02/03/19 (I have seen and examined the patient. I agree with the findings and plan of care as documented by Dr. Boo. Patient with chest pain. ROMIx3 with EKG. Consult to Cardio. Aspirin and Statin. Continue Nitro prn. Also with history of hypertension. Continue home meds. Monitor for acute changes.) Time: 05:59 Attending/Attestation - Attestation I have personally seen and examined this patient.: Yes I have fully participated in the care of the patient.: Yes I have reviewed all pertinent clinical information: Yes
[2019-02-02 22:41] LABS: B-TYPE NATRIURETIC PEPTIDE 410 pg/mL (0-900); CK-MB 2.22 ng/mL (0.0-3.38)
[2019-02-03 04:00] LABS: BASO # 0.1 K/uL (0.0-0.2); BASO % 1.1 % (0.0-2.0); EOS # 0.1 K/uL (0.0-0.7); EOS % 1.7 % (0.0-4.0); LYMPH # 1.6 K/uL (1.0-4.3); LYMPH % 32.9 % (20.0-40.0); MEAN CELL VOLUME 88.4 fL (81.0-99.0); MEAN CORPUSCULAR HEMOGLOBIN 28.9 pg (27.0-31.0); MEAN CORPUSCULAR HGB CONC 32.7 g/dL (33.0-37.0); MEAN PLATELET VOLUME 9.3 fL (7.2-11.7); MONO # 0.5 K/uL (0.0-0.8); MONO % 9.8 % (0.0-10.0); NEUT # 2.6 K/uL (1.8-7.0); NEUT % 54.5 % (50.0-75.0); NRBC % 0.1 % (0.0-2.0); RBC 4.49 Mil/uL (3.80-5.20); RED CELL DISTRIBUTION WIDTH 14.3 % (11.5-14.5); WHITE BLOOD COUNT 4.8 K/uL (4.8-10.8)
[2019-02-03 04:30] LABS: LDL CHOLESTEROL 81 mg/dL (0-129)
[2019-02-03 05:23] LABS: BLOOD UREA NITROGEN 18 mg/dL (7-17); CALCIUM 9.5 mg/dl (8.6-10.4); GFR NON-AFRICAN AMERICAN > 60; HDL CHOLESTEROL 69 mg/dL (30-70)
--- NOTE | 2019-02-03 07:15 | CP.PCM.PN ---
<Lora Silverman P - Last Filed: 02/03/19 13:43> Subjective - Date & Time of Evaluation Date of Evaluation: 02/03/19 Time of Evaluation: 07:13 - Subjective Subjective: Progress note for Dr. Shellie Naik. Patient seen and examined at bedside. Patient states she feels well. She had no other episodes of chest pain overnight. Denies shortness of breath, nausea, vomiting, abdominal pain, dizziness, lightheadedness and current chest pain. Objective - Vital Signs/Intake and Output Vital Signs (last 24 hours): Temp Pulse Resp BP Pulse Ox 97.9 F 56 L 20 142/74 96 02/03/19 04:24 02/03/19 04:24 02/03/19 04:24 02/03/19 04:24 02/03/19 04:24 Intake and Output: 02/03/19 02/03/19 06:59 18:59 Intake Total 310 Balance 310 - Medications Medications: Current Medications Aspirin (Aspirin Chewable) 81 mg PO DAILY [facility] Enalapril Maleate (Vasotec) 40 mg PO DAILY [facility] Famotidine (Pepcid) 20 mg PO BID [facility] Heparin Sodium (Porcine) (Heparin) 5,000 units SC Q8 [facility] Last Admin: 02/03/19 05:32 Dose: 5,000 units Nitroglycerin (Nitrostat Sl Tab) 0.4 mg SL Q5M PRN PRN Reason: Other Pneumococcal Polyvalent Vaccine (Pneumovax 23 Vaccine) 0.5 ml IM .ONCE ONE Stop: 02/03/19 10:01 Rosuvastatin Calcium (Crestor) 5 mg PO HS [facility] Last Admin: 02/02/19 22:21 Dose: 5 mg - Labs Labs: 02/03/19 03:55 02/03/19 03:55 - Constitutional Appears: Non-toxic, No Acute Distress - Head Exam Head Exam: ATRAUMATIC, NORMOCEPHALIC - Eye Exam Eye Exam: EOMI, Normal appearance - ENT Exam ENT Exam: Mucous Membranes Moist - Neck Exam Neck Exam: Full ROM, Normal Inspection - Respiratory Exam Respiratory Exam: Clear to Ausculation Bilateral, NORMAL BREATHING PATTERN. absent: Rales, Rhonchi, Wheezes - Cardiovascular Exam Cardiovascular Exam: REGULAR RHYTHM, +S1, +S2 - GI/Abdominal Exam GI & Abdominal Exam: Normal Bowel Sounds - Extremities Exam Extremities Exam: Full ROM, Normal Capillary Refill, Normal Inspection. absent: Pedal Edema, Tenderness - Neurological Exam Neurological Exam: Alert, Awake, CN II-XII Intact, Normal Gait, Oriented x3 Neuro motor strength exam: Left Upper Extremity: 5, Right Upper Extremity: 5, Left Lower Extremity: 5, Right Lower Extremity: 5 - Psychiatric Exam Psychiatric exam: Normal Affect, Normal Mood - Skin Skin Exam: Dry, Normal Color, Warm Assessment and Plan - Assessment and Plan (Free Text) Plan: 83 year old female admitted for evaluation of chest discomfort, abnormal EKG 1. Chest tightness R/O ACS -EKG initial: NSR; repeat s/p episode: non-specific ST/T wave changes in ED -trop negative x3 -symptomatic relief w/ nitro -monitor on telemetry -f/u BNP: 400 -lipid panel: WNL -TSH/T4: 2.96/1.10 WNL -hgb a1c -echo 02/03/19: LV function is normal. LVEF is within the normal range. No regional wall motion abnoralities noted. There is nild to moderate aortic regurgitation. Mitral regurgitation. Mitral regurgitation is mild. There is mild tricuspid regurgitation. RV systolic pressure is estimated at 30-40mmHg. -start ASA, crestor -nitro SL prn, anginal symptoms -HHD, low fat/Na+ -Cardio consult, Dr. Dyer -Symptoms suggestive on angina -Nuclear stress test in AM Status: Acute 2. HTN (hypertension) -resume home enalapril 40mg QD -HHD, low Na+ Status: Chronic 3. Prophylactic measure -GI: pepcid -VTE: heparin 5000 q8, SCDs Status: Acute Dispo: Nuclear stress test in AM. Case discussed with Dr. Naik. Lora Silverman, PGY-1 <Jonel Naik - Last Filed: 02/05/19 17:12> Objective - Vital Signs/Intake and Output Vital Signs (last 24 hours): Temp Pulse Resp BP Pulse Ox 98 F 61 18 117/62 96 02/04/19 15:59 02/04/19 15:59 02/04/19 15:59 02/04/19 15:59 02/04/19 15:59 - Labs Labs: 02/04/19 13:40 02/04/19 13:40 Attending/Attestation - Attestation I have personally seen and examined this patient.: Yes I have fully participated in the care of the patient.: Yes I have reviewed all pertinent clinical information, including history, physical exam and plan: Yes Notes (Text): 02/05/19 17:12 This is a late entry. Care of this patient was gone over in detail with resident Dr. Silverman. Jonel Naik D.O.
[2019-02-03] MEDS ORDERED: Pneumococcal 23-Valent Vaccine IM ONE (10:00)
--- NOTE | 2019-02-03 10:10 | CP.PCM.CON ---
History of Present Illness - History of Present Illness History of Present Illness: 83 yo woman, no h/o cad, long time smoker, stopped 4 years ago, not a diabetic. For a month, patient has had upper chest pain, radiating to left or both arms, with walking or at rest. Chest pain is not getting worse, but pt is worried. Here at , tni negative ecg negative. Review of Systems - Review of Systems All systems: reviewed and no additional remarkable complaints except (as above) Past Patient History - Past Medical History & Family History Past Medical History?: Yes - Past Social History Smoking Status: Former Smoker - CARDIAC Hx Hypertension: Yes - PULMONARY Hx Respiratory Disorders: No - NEUROLOGICAL Hx Neurological Disorder: No - HEENT Hx HEENT Problems: No - RENAL Hx Chronic Kidney Disease: No - ENDOCRINE/METABOLIC Hx Endocrine Disorders: No - HEMATOLOGICAL/ONCOLOGICAL Hx Blood Disorders: No Hx Blood Transfusions: No - INTEGUMENTARY Hx Dermatological Problems: No - MUSCULOSKELETAL/RHEUMATOLOGICAL Hx Fractures: Yes Hx Osteoporosis: Yes - GASTROINTESTINAL Hx Gastrointestinal Disorders: Yes Hx Bowel Surgery: Yes Other/Comment: colon Sx 08/2017 - GENITOURINARY/GYNECOLOGICAL Hx Genitourinary Disorders: No - PSYCHIATRIC Hx Substance Use: No - SURGICAL HISTORY Hx Surgeries: Yes Hx Orthopedic Surgery: Yes (Right intertroch ORIF/Right olecranon ORIF 02/04/2018) Other/Comment: colon surgery 08/2017. bilateral hip surgery - ANESTHESIA Hx Anesthesia: Yes Hx Anesthesia Reactions: No Hx Malignant Hyperthermia: No Meds Allergies/Adverse Reactions: Allergies Allergy/AdvReac Type Severity Reaction Status Date / Time No Known Allergies Allergy Verified 02/02/19 15:05 - Medications Medications: Current Medications Aspirin (Aspirin Chewable) 81 mg PO DAILY [facility] Last Admin: 02/03/19 09:53 Dose: 81 mg Enalapril Maleate (Vasotec) 40 mg PO DAILY [facility] Last Admin: 02/03/19 09:54 Dose: 40 mg Famotidine (Pepcid) 20 mg PO BID [facility] Last Admin: 02/03/19 09:53 Dose: 20 mg Heparin Sodium (Porcine) (Heparin) 5,000 units SC Q8 [facility] Last Admin: 02/03/19 05:32 Dose: 5,000 units Nitroglycerin (Nitrostat Sl Tab) 0.4 mg SL Q5M PRN PRN Reason: Other Rosuvastatin Calcium (Crestor) 5 mg PO HS [facility] Last Admin: 02/02/19 22:21 Dose: 5 mg Physical Exam - Constitutional Appears: Well - Head Exam Head Exam: NORMAL INSPECTION - Eye Exam Eye Exam: EOMI - Neck Exam Neck exam: Positive for: Normal Inspection - Respiratory Exam Respiratory Exam: NORMAL BREATHING PATTERN - Cardiovascular Exam Cardiovascular Exam: REGULAR RHYTHM - Back Exam Back exam: CVA tenderness (L) - Neurological Exam Neurological exam: Alert, CN II-XII Intact, Oriented x3, Reflexes Normal - Psychiatric Exam Psychiatric exam: Normal Affect - Skin Skin Exam: Normal Color Results - Vital Signs Recent Vital Signs: Last Vital Signs Temp 97.9 F 02/03/19 07:52 Pulse 60 02/03/19 07:52 Resp 20 02/03/19 07:52 BP 146/76 02/03/19 09:54 Pulse Ox 95 02/03/19 08:00 - Labs Result Diagrams: 02/03/19 03:55 02/03/19 03:55 Labs: Laboratory Results - last 24 hr 02/02/19 02/02/19 02/02/19 15:45 15:45 18:19 WBC 5.5 RBC 4.94 Hgb 14.3 Hct 43.8 MCV 88.6 MCH 29.0 MCHC 32.8 L RDW 14.4 Plt Count 226 MPV 8.9 Neut % (Auto) 58.9 Lymph % (Auto) 31.9 Laurel % (Auto) 7.5 Eos % (Auto) 0.8 Baso % (Auto) 0.9 Neut # (Auto) 3.3 Lymph # (Auto) 1.8 Laurel # (Auto) 0.4 Eos # (Auto) 0.0 Baso # (Auto) 0.1 Sodium 139 Potassium 4.3 Chloride 103 Carbon Dioxide 26 Anion Gap 14 BUN 15 Creatinine 0.6 L Est GFR ( Amer) > 60 Est GFR (Non-Af Amer) > 60 Random Glucose 90 D Hemoglobin A1c Calcium 10.4 Phosphorus Magnesium Total Bilirubin 0.5 AST 34 ALT 22 Alkaline Phosphatase 107 CK-MB (Mass) Troponin I < 0.0120 NT-Pro-B Natriuret Pep Total Protein 9.0 H Albumin 4.9 Globulin 4.1 H Albumin/Globulin Ratio 1.2 Triglycerides Cholesterol LDL Cholesterol Direct HDL Cholesterol Free T4 TSH 3rd Generation Urine Opiates Screen Negative Urine Methadone Screen Negative Ur Barbiturates Screen Negative Ur Phencyclidine Scrn Negative Ur Amphetamines Screen Negative U Benzodiazepines Scrn Negative U Oth Cocaine Metabols Negative U Cannabinoids Screen Negative 02/02/19 02/03/19 02/03/19 21:55 03:55 03:55 WBC 4.8 RBC 4.49 Hgb 13.0 Hct 39.7 MCV 88.4 MCH 28.9 MCHC 32.7 L RDW 14.3 Plt Count 196 MPV 9.3 Neut % (Auto) 54.5 Lymph % (Auto) 32.9 Laurel % (Auto) 9.8 Eos % (Auto) 1.7 Baso % (Auto) 1.1 Neut # (Auto) 2.6 Lymph # (Auto) 1.6 Laurel # (Auto) 0.5 Eos # (Auto) 0.1 Baso # (Auto) 0.1 Sodium 138 Potassium 4.1 Chloride 107 Carbon Dioxide 24 Anion Gap 11 BUN 18 H Creatinine 0.5 L Est GFR ( Amer) > 60 Est GFR (Non-Af Amer) > 60 Random Glucose 98 Hemoglobin A1c Calcium 9.5 Phosphorus 4.1 Magnesium 2.0 Total Bilirubin AST ALT Alkaline Phosphatase CK-MB (Mass) 2.22 Troponin I < 0.0120 < 0.0120 NT-Pro-B Natriuret Pep 410 Total Protein Albumin Globulin Albumin/Globulin Ratio Triglycerides 108 Cholesterol 172 LDL Cholesterol Direct 81 HDL Cholesterol 69 Free T4 TSH 3rd Generation 2.96 Urine Opiates Screen Urine Methadone Screen Ur Barbiturates Screen Ur Phencyclidine Scrn Ur Amphetamines Screen U Benzodiazepines Scrn U Oth Cocaine Metabols U Cannabinoids Screen 02/03/19 02/03/19 03:55 03:55 WBC RBC Hgb Hct MCV MCH MCHC RDW Plt Count MPV Neut % (Auto) Lymph % (Auto) Laurel % (Auto) Eos % (Auto) Baso % (Auto) Neut # (Auto) Lymph # (Auto) Laurel # (Auto) Eos # (Auto) Baso # (Auto) Sodium Potassium Chloride Carbon Dioxide Anion Gap BUN Creatinine Est GFR ( Amer) Est GFR (Non-Af Amer) Random Glucose Hemoglobin A1c 6.0 Calcium Phosphorus Magnesium Total Bilirubin AST ALT Alkaline Phosphatase CK-MB (Mass) Troponin I NT-Pro-B Natriuret Pep Total Protein Albumin Globulin Albumin/Globulin Ratio Triglycerides Cholesterol LDL Cholesterol Direct HDL Cholesterol Free T4 1.10 TSH 3rd Generation Urine Opiates Screen Urine Methadone Screen Ur Barbiturates Screen Ur Phencyclidine Scrn Ur Amphetamines Screen U Benzodiazepines Scrn U Oth Cocaine Metabols U Cannabinoids Screen - EKG Data EKG Interpreted by: Myself EKG shows normal: Sinus rhythm (nsr, non specific st changes) Assessment & Plan - Assessment and Plan (Free Text) Assessment: Althooug initial results are normal, the patients story is very suggestive of angina, A nuclear stress test is orderrd for AM.
--- NOTE | 2019-02-03 10:33 | CP.PCM.PCO ---
Physician Communication Note - Physician Communication Note Physician Communication Note: Patient NPO after midnight for Nuclear Stress Test 02/04/19
--- NOTE | 2019-02-03 12:10 | CARD ---
APPROVED REPORT Date of service: 02/02/2019 EKG Measurement Heart [id number] <Conclusion> Sinus bradycardia Septal infarct, age undetermined Abnormal ECG
--- NOTE | 2019-02-03 12:12 | CARD ---
APPROVED REPORT Date of service: 02/02/2019 EKG Measurement Heart [id number] <Conclusion> Sinus bradycardia Nonspecific ST and T wave abnormality Abnormal ECG
--- NOTE | 2019-02-03 12:13 | CARD ---
APPROVED REPORT Date of service: 02/02/2019 EKG Measurement Heart [id number] [place] [id number] <Conclusion> Sinus bradycardia Otherwise normal ECG
--- NOTE | 2019-02-03 12:39 | CARD ---
APPROVED REPORT Date of service: 02/03/2019 EXAM: Two-dimensional and M-mode echocardiogram with Doppler and color Doppler. INDICATION Abnormal EKG/Arrhythmia Chest Pain RISK FACTORS Hypertension 2D DIMENSIONS IVSd0.9 (0.7-1.1cm)LVDd4.1 (3.9-5.9cm) PWd1.1 (0.7-1.1cm)LA Rmumat58 (18-58mL) LVDs2.3 (2.5-4.0cm)FS (%) 43.1 % LVEF (%)74.6 (>50%)LVEF (Mayes's)67.07 % M-Mode DIMENSIONS Left Atrium (MM)3.69 (2.5-4.0cm)IVSd0.87 (0.7-1.1cm) Aortic Root3.17 (2.2-3.7cm)LVDd5.69 (4.0-5.6cm) Aortic Cusp Exc.2.26 (1.5-2.0cm)PWd0.85 (0.7-1.1cm) FS (%) 43 %LVDs3.24 (2.0-3.8cm) LVEF (%)74 (>50%) Aortic Valve AI P 1/2 [id number] Mitral Valve MV E Toxkvzck43.6cm/sMV A Hhzlgnrh66.9cm/sE/A ratio0.5 TDI Lateral E' Peak V7.25cm/sMedial E' Peak V4.29cm/sE/Lateral E'4.8 E/Medial E'8.1 Tricuspid Valve TR Peak Wxoxplff683fj/sTR Peak Gr.71rkHpCZCN04kdUa LEFT VENTRICLE The left ventricle is normal size. There is normal left ventricular wall thickness. The left ventricular function is normal. The left ventricular ejection fraction is within the normal range. No regional wall motion abnormalities noted. The left ventricular diastolic function is normal. No left ventricle thrombus noted on this study. There is no ventricular septal defect visualized. There is no left ventricular aneurysm. There is no mass noted in the left ventricle. RIGHT VENTRICLE The right ventricle is normal size. There is normal right ventricular wall thickness. The right ventricular systolic function is normal. ATRIA The left atrium size is normal. The right atrium size is normal. The interatrial septum is intact with no evidence for an atrial septal defect. AORTIC VALVE The aortic valve is normal in structure and function. There is mild to moderate aortic regurgitation. There is no aortic valvular stenosis. There is no aortic valvular vegetation. MITRAL VALVE The mitral valve is normal in structure and function. There is no evidence of mitral valve prolapse. There is no mitral valve stenosis. Mitral regurgitation is mild. TRICUSPID VALVE The tricuspid valve is normal in structure and function. There is mild tricuspid regurgitation. Right ventricular systolic pressure is estimated at 30-40 mmHg. There is no tricuspid valve prolapse or vegetation. There is no tricuspid valve stenosis. PULMONIC VALVE The pulmonary valve is normal in structure and function. There is no pulmonic valvular regurgitation. There is no pulmonic valvular stenosis. GREAT VESSELS The aortic root is normal in size. The ascending aorta is normal in size. The pulmonary artery is normal. The IVC is normal in size and collapses >50% with inspiration. PERICARDIAL EFFUSION The pericardium appears normal. There is no pleural effusion. <Conclusion> The left ventricular function is normal. The left ventricular ejection fraction is within the normal range. No regional wall motion abnormalities noted. There is mild to moderate aortic regurgitation. Mitral regurgitation is mild. There is mild tricuspid regurgitation. Right ventricular systolic pressure is estimated at 30-40 mmHg.
--- NOTE | 2019-02-04 07:35 | CP.PCM.PN ---
Objective - Vital Signs/Intake and Output Vital Signs (last 24 hours): Temp Pulse Resp BP Pulse Ox 98 F 63 20 129/70 97 02/03/19 23:00 02/04/19 03:05 02/03/19 23:00 02/03/19 23:00 02/03/19 23:20 - Medications Medications: Current Medications Aspirin (Aspirin Chewable) 81 mg PO DAILY [facility] Last Admin: 02/03/19 09:53 Dose: 81 mg Enalapril Maleate (Vasotec) 40 mg PO DAILY [facility] Last Admin: 02/03/19 09:54 Dose: 40 mg Famotidine (Pepcid) 20 mg PO BID [facility] Last Admin: 02/03/19 17:34 Dose: 20 mg Heparin Sodium (Porcine) (Heparin) 5,000 units SC Q8 [facility] Last Admin: 02/04/19 05:29 Dose: 5,000 units Nitroglycerin (Nitrostat Sl Tab) 0.4 mg SL Q5M PRN PRN Reason: Other Rosuvastatin Calcium (Crestor) 5 mg PO HS [facility] Last Admin: 02/03/19 21:14 Dose: 5 mg - Labs Labs: 02/03/19 03:55 02/03/19 03:55
[2019-02-04 08:16] VITALS: O2SAT 96
[2019-02-04] MEDS ORDERED: Caffeine Citrated **INJ** 20 MG/ML IV ONE (09:24)
--- NOTE | 2019-02-04 10:13 | CP.PCM.PN ---
Subjective - Date & Time of Evaluation Date of Evaluation: 02/04/19 Time of Evaluation: 10:12 - Subjective Subjective: Pt had nuclear stress test today Objective - Vital Signs/Intake and Output Vital Signs (last 24 hours): Temp Pulse Resp BP Pulse Ox 98.2 F 59 L 20 126/73 96 02/04/19 07:30 02/04/19 07:30 02/04/19 07:30 02/04/19 07:30 02/04/19 07:30 - Medications Medications: Current Medications Aspirin (Aspirin Chewable) 81 mg PO DAILY [facility] Last Admin: 02/03/19 09:53 Dose: 81 mg Enalapril Maleate (Vasotec) 40 mg PO DAILY [facility] Last Admin: 02/03/19 09:54 Dose: 40 mg Famotidine (Pepcid) 20 mg PO BID [facility] Last Admin: 02/03/19 17:34 Dose: 20 mg Heparin Sodium (Porcine) (Heparin) 5,000 units SC Q8 [facility] Last Admin: 02/04/19 05:29 Dose: 5,000 units Nitroglycerin (Nitrostat Sl Tab) 0.4 mg SL Q5M PRN PRN Reason: Other Rosuvastatin Calcium (Crestor) 5 mg PO HS [facility] Last Admin: 02/03/19 21:14 Dose: 5 mg - Labs Labs: 02/03/19 03:55 02/03/19 03:55 - Constitutional Appears: Well - Head Exam Head Exam: ATRAUMATIC, NORMAL INSPECTION - Eye Exam Eye Exam: Normal appearance - ENT Exam ENT Exam: Mucous Membranes Moist - Neck Exam Neck Exam: Normal Inspection - Respiratory Exam Respiratory Exam: Clear to Ausculation Bilateral - Cardiovascular Exam Cardiovascular Exam: REGULAR RHYTHM - GI/Abdominal Exam GI & Abdominal Exam: Soft, Normal Bowel Sounds - Extremities Exam Extremities Exam: Full ROM - Back Exam Back Exam: NORMAL INSPECTION - Neurological Exam Neurological Exam: Normal Gait, Oriented x3, Reflexes Normal - Psychiatric Exam Psychiatric exam: Normal Mood - Skin Skin Exam: Dry, Normal Color Assessment and Plan - Assessment and Plan (Free Text) Assessment: 1. CV status is stable, Await nuclear images
[2019-02-04 13:54] LABS: BASO # 0.1 K/uL (0.0-0.2); BASO % 0.6 % (0.0-2.0); EOS % 0.4 % (0.0-4.0); HEMOGLOBIN 13.6 g/dL (11.0-16.0); LYMPH # 1.5 K/uL (1.0-4.3); LYMPH % 18.9 % (20.0-40.0); MEAN CELL VOLUME 87.6 fL (81.0-99.0); MEAN CORPUSCULAR HEMOGLOBIN 29.8 pg (27.0-31.0); MEAN PLATELET VOLUME 9.9 fL (7.2-11.7); MONO # 0.5 K/uL (0.0-0.8); MONO % 5.9 % (0.0-10.0); NEUT # 6.1 K/uL (1.8-7.0); NEUT % 74.2 % (50.0-75.0); RBC 4.57 Mil/uL (3.80-5.20); RED CELL DISTRIBUTION WIDTH 14.3 % (11.5-14.5)
[2019-02-04 13:55] LABS: WHITE BLOOD COUNT 8.2 K/uL (4.8-10.8)
[2019-02-04 14:01] LABS: ALB/GLOB RATIO 1.3 (1.0-2.1); ALBUMIN 4.3 g/dL (3.5-5.0); ALT/SGPT 16 U/L (9-52); AST/SGOT 29 U/L (14-36); BLOOD UREA NITROGEN 20 mg/dL (7-17); CALCIUM 9.4 mg/dl (8.6-10.4); GFR NON-AFRICAN AMERICAN > 60
--- NOTE | 2019-02-04 16:22 | CARD ---
APPROVED REPORT Date of service: 02/04/2019 Protocol: LEXISCAN Test Type: LEXISCAN STRESS Test Indications: CP Target HR: 136 bpm Resting Heart Rate: 59 bpm Resting Blood Pressure: 132/80mmHg submaximum (85%): 116 bpm TEST SUMMARY [id number]:02..1.051/.0. PREINFSNHYPERV.01:170.00.01.971659/80.0. INFUSIONDOSE 100:300.00.01.061/.0. AHXYRWSWG02:000.00.01.378902/80.0. PROCEDURE Pharmacologic stress testing was performed using 0.4mg per 5ml of regadenoson given intravenously over 7-10 seconds. POST EXERCISE Target HR: No Max HR: 61 bpm 56% of Maximum Predicted HR: 136 bpm Exercise duration: 00:30 min:sec, 0 Stage Exercise capacity: 1.0METs Max Blood Pressure: 132/80mmHg Chest Pain: Yes, Angina index: 0 Arrhythmia: Yes, ST Change: Yes, Deviation: 0 mm INTERPRETATION Stress EKG Conclusion: Normal, no evidence of ischemia EXAM: Myocardial Perfusion REST/STRESS Imaging Protocol The imaging protocol used to acquire images was Rest Tc-99m/stress Tc-99m 1 day Rest Spect myocardial perfusion imaging was performed in supine position 45 minutes following the injection of 11.6 mCi of Tc-99 Myoview. Gated Stress Spect was performed 45 minutes after intravenous 28.0 mCi Tc-99 Myoview injection. The images were gated to evaluate regional wall motion and calculate ventricular ejection fraction.Images were reconstructed using backfilter projection method in short horizontal and verticle long axis. Spect slices were generated. RESTING DATA EDV44.18lbCJ1.80L/min ESV12.00mlMyocardial Mass85.00g Av. Heart Rate58.00bpm EF73.00% STRESS DATA EDV52.71oxBF3.80L/min ESV16.00mlMyocardial Mass95.00g EF69.00% Regional WT score at stress:2.00 Regional WM score at stress:0.00 Summed WT score at stress:13.00 Av. Heart Rate77.00bpmSummed WM score at stress:4.00 LV Perf. Quant 17 Seg. SSS1.00 17 Seg. SRS0.00 17 Seg. SDS1.00 Stress Defect Extent (% LAD)0.00Rest Defect Extent (% LAD)0.00Rev. Defect Extent (% LAD)0.00 Stress Defect Extent (% LCX)5.00Rest Defect Extent (% LCX)0.00Rev. Defect Extent (% LCX)0.00 Stress Defect Extent (% RCA)0.00Rest Defect Extent (% RCA)0.00Rev. Defect Extent (% RCA)0.00 Stress Defect Extent (% DOUG)0.90Rest Defect Extent (% DOUG)0.00Rev. Defect Extent (% DOUG)0.00 Conclusion 1. Sub-optimal technical quality. There was increased uptake of isotope seen in the GI tract at rest. The images were also processed misaligned. 2. Post stress images demonstrated a mild left ventricular basal- inferior wall perfusion defect. 3. Resting inages demonstrated increased uptake of isotope in th GI tract and liver, overlapping the inferior wall. 4. Gated SPECT post stress demonstrated normal LV systolic function. The ejection fraction was 69%. 5. Impression: 6. Equivocal study. Resting images have increase uptake of isotope in the GI tract and liver, overlapping the inferior wall. LV systolic function is normal.
--- NOTE | 2019-02-04 16:48 | CP.PCM.DIS ---
Provider - Provider Date of Admission: 02/02/19 17:44 Attending physician: Nito Greco MD Consults: 02/02/19 20:04 Cardiology Consult Routine Comment: Consulting Provider: Anant Dyer Consulting Physician: Anant Dyer Reason for Consult: acute non-specific T wave changes, chest pain Time Spent in preparation of Discharge (in minutes): 35 Diagnosis - Discharge Diagnosis (1) Abnormal nuclear stress test Status: Acute (2) HTN (hypertension) Status: Chronic (3) Atypical chest pain Status: Resolved (4) Abnormal EKG Status: Acute Hospital Course - Lab Results Lab Results: Most Recent Lab Values WBC 8.2 K/uL (4.8-10.8) D 02/04/19 13:40 RBC 4.57 Mil/uL (3.80-5.20) 02/04/19 13:40 Hgb 13.6 g/dL (11.0-16.0) 02/04/19 13:40 Hct 40.0 % (34.0-47.0) 02/04/19 13:40 MCV 87.6 fL (81.0-99.0) 02/04/19 13:40 MCH 29.8 pg (27.0-31.0) 02/04/19 13:40 MCHC 34.0 g/dL (33.0-37.0) 02/04/19 13:40 RDW 14.3 % (11.5-14.5) 02/04/19 13:40 Plt Count 217 K/uL (130-400) 02/04/19 13:40 MPV 9.9 fL (7.2-11.7) 02/04/19 13:40 Neut % (Auto) 74.2 % (50.0-75.0) 02/04/19 13:40 Lymph % (Auto) 18.9 % (20.0-40.0) L 02/04/19 13:40 [place] % (Auto) 5.9 % (0.0-10.0) 02/04/19 13:40 Eos % (Auto) 0.4 % (0.0-4.0) 02/04/19 13:40 Baso % (Auto) 0.6 % (0.0-2.0) 02/04/19 13:40 Neut # (Auto) 6.1 K/uL (1.8-7.0) 02/04/19 13:40 Lymph # (Auto) 1.5 K/uL (1.0-4.3) 02/04/19 13:40 [place] # (Auto) 0.5 K/uL (0.0-0.8) 02/04/19 13:40 Eos # (Auto) 0.0 K/uL (0.0-0.7) 02/04/19 13:40 Baso # (Auto) 0.1 K/uL (0.0-0.2) 02/04/19 13:40 Sodium 137 mmol/L (132-148) 02/04/19 13:40 Potassium 4.6 mmol/L (3.6-5.2) 02/04/19 13:40 Chloride 104 mmol/L (98-107) 02/04/19 13:40 Carbon Dioxide 23 mmol/L (22-30) 02/04/19 13:40 Anion Gap 14 (10-20) 02/04/19 13:40 BUN 20 mg/dL (7-17) H 02/04/19 13:40 Creatinine 0.8 mg/dL (0.7-1.2) 02/04/19 13:40 Est GFR ( Amer) > 60 02/04/19 13:40 Est GFR (Non-Af Amer) > 60 02/04/19 13:40 Random Glucose 127 mg/dL (65-105) H D 02/04/19 13:40 Hemoglobin A1c 6.0 % (4.2-6.5) 02/03/19 03:55 Calcium 9.4 mg/dl (8.6-10.4) 02/04/19 13:40 Phosphorus 4.1 mg/dL (2.5-4.5) 02/04/19 13:40 Magnesium 2.0 mg/dL (1.6-2.3) 02/04/19 13:40 Total Bilirubin 0.6 mg/dL (0.2-1.3) 02/04/19 13:40 AST 29 U/L (14-36) 02/04/19 13:40 ALT 16 U/L (9-52) 02/04/19 13:40 Alkaline Phosphatase 83 U/L (38-126) 02/04/19 13:40 CK-MB (Mass) 2.22 ng/mL (0.0-3.38) 02/02/19 21:55 Troponin I < 0.0120 ng/mL (0.00-0.120) 02/03/19 03:55 NT-Pro-B Natriuret Pep 410 pg/mL (0-900) 02/02/19 21:55 Total Protein 7.7 g/dL (6.3-8.3) 02/04/19 13:40 Albumin 4.3 g/dL (3.5-5.0) 02/04/19 13:40 Globulin 3.4 gm/dL (2.2-3.9) 02/04/19 13:40 Albumin/Globulin Ratio 1.3 (1.0-2.1) 02/04/19 13:40 Triglycerides 108 mg/dL (0-149) 02/03/19 03:55 Cholesterol 172 mg/dL (0-199) 02/03/19 03:55 LDL Cholesterol Direct 81 mg/dL (0-129) 02/03/19 03:55 HDL Cholesterol 69 mg/dL (30-70) 02/03/19 03:55 Free T4 1.10 ng/dL (0.78-2.19) 02/03/19 03:55 TSH 3rd Generation 2.96 mIU/L (0.46-4.68) 02/03/19 03:55 Urine Opiates Screen Negative (NEGATIVE) 02/02/19 18:19 Urine Methadone Screen Negative (NEGATIVE) 02/02/19 18:19 Ur Barbiturates Screen Negative (NEGATIVE) 02/02/19 18:19 Ur Phencyclidine Scrn Negative (NEGATIVE) 02/02/19 18:19 Ur Amphetamines Screen Negative (NEGATIVE) 02/02/19 18:19 U Benzodiazepines Scrn Negative (NEGATIVE) 02/02/19 18:19 U Oth Cocaine Metabols Negative (NEGATIVE) 02/02/19 18:19 U Cannabinoids Screen Negative (NEGATIVE) 02/02/19 18:19 - Hospital Course Hospital Course: On admission: Patient is an 83 year old female with pmhx of HTN, diverticulitis who presents to ED accompanied by family, with complaints of daily chest discomfort for the past 3 months. Patient reports retro-sternal tightness that then radiates to arms bilaterally and up her neck. She reports approximately 4 episodes daily, lasting approximately 10 minutes, not associated with activity or position; denies dizziness, SOB, or nausea. Patient reports compliance with enalapril as ordered, however does not follow up with a PMD regularly. Patient reports last episode of chest discomfort in ED relieved with nitro, repeat EKG revealed non- specific ST/T wave changes from prior reading NSR. Denies further complaints. Hospital course: EKG initial: NSR; repeat s/p episode: non-specific ST/T wave changes in ED. Pt started on home medications. Started on ASA, Statin. Pt received NTG SL as needed for chest tightness. CXR showed no active disease. Cardiology, Dr. Dyer, consulted. Troponin x3 were negative. Underwent nuclear stress test, which showed stable cardiovascular status. However, cardiology read nuclear stress test as equivocal study. Resting images have increased uptake of isotope in robert GI tract and liver, overlapping the inferior wall. LV systolic function is normal. On discharge interview, pt is resting comfortably. Denies fevers, chills, chest pain, sob, palpitations, abdominal pain, n/v/d, headache, dizziness, lightheadedness, visual changes. This is a summary of the hospital course. Please see EMR for full details. Pt is medically stable for discharge home. Please continue taking home medications as previously prescribed. Prescriptions added: Nitroglycerin 0.3 mg tab sublingual. Please put one tab under the tongue every 5 minutes as needed for chest pain, for a total of 3 doses. If chest pain persists please go to nearest Emergency department. #15 Atorvastatin 10 mg PO once nightly at dinner time. #30 Please follow up with [facility] within 1 week of discharge home. Please call . Please follow up with Dr. Dyer, cardiology, within 2 weeks of discharge. Please call to schedule appointment. Should symptoms worsen, please go to the nearest Emergency Department for further evaluation. Instructions explained to the pt, who understands and agrees with discharge plan. Discharge Exam - Additional Findings Additional findings: - Constitutional Appears: Non-toxic, No Acute Distress - Head Exam Head Exam: ATRAUMATIC, NORMOCEPHALIC - Eye Exam Eye Exam: EOMI, Normal appearance - ENT Exam ENT Exam: Mucous Membranes Moist - Neck Exam Neck Exam: Full ROM, Normal Inspection - Respiratory Exam Respiratory Exam: Clear to Ausculation Bilateral, NORMAL BREATHING PATTERN. absent: Rales, Rhonchi, Wheezes - Cardiovascular Exam Cardiovascular Exam: REGULAR RHYTHM, +S1, +S2. NO murmurs. Bilateral upper and lower distal extremity pulses 2+ - GI/Abdominal Exam GI & Abdominal Exam: Normal Bowel Sounds - Extremities Exam Extremities Exam: Full ROM, Normal Capillary Refill, Normal Inspection. absent: Pedal Edema, Tenderness - Neurological Exam Neurological Exam: Alert, Awake, Oriented x3 - Psychiatric Exam Psychiatric exam: Normal Affect, Normal Mood - Skin Skin Exam: Dry, Normal Color, Warm Discharge Plan - Discharge Medications Prescriptions: Atorvastatin [Lipitor] 10 mg PO DIN #30 tab Nitroglycerin [Nitrostat SL Tab] 0.3 mg SL Q5M #15 tab.subl - Follow Up Plan Condition: STABLE Disposition: HOME/ ROUTINE Instructions: DASH Diet, Chest Pain (DC), Low Salt Diet, Atorvastatin, Nitroglycerin, Hypertension (DC) Additional Instructions: Pt is medically stable for discharge home. Please continue taking home medications as previously prescribed. Prescriptions added: Nitroglycerin 0.3 mg tab sublingual. Please put one tab under the tongue every 5 minutes as needed for chest pain, for a total of 3 doses. If chest pain persists please go to nearest Emergency department. #15 Atorvastatin 10 mg PO once nightly at dinner time. #30 Please follow up with [facility] within 1 week of discharge home. Please call . Please follow up with Dr. Dyer, cardiology, within 2 weeks of discharge. Please call to schedule appointment. Should symptoms worsen, please go to the nearest Emergency Department for further evaluation. Instructions explained to the pt, who understands and agrees with discharge plan. Pt es mdicamente estable para el [facility] dom[facility]ia. Por favor contine tomando los medicamentos en casa segn lo prescrito anteriormente Prescripciones aadidas: Nitroglicerina 0,3 mg tab sublingual. Coloque alexandra pestaa debajo de la lengua cada 5 minutos, segn sea necesario para el dolor de pecho, para un total de 3 dosis. Si el dolor en el pecho persiste, dirjase al servicio de urgencias ms cercano. #15 Atorvastatina 10 mg PO alexandra vez por la noche a la hora de la paulette. # 30 Alex un seguimiento con [facility] dentro de la primera semana despus del [facility]. Por favor llame al . Por favor alex un seguimiento con el Dr. Dyer, cardiologa, dentro de las 2 semanas posteriores al [facility]. Llame al para programar alexandra sourav. Si los sntomas empeoran, dirjase al [facility] ms [facility]ercano para alexandra evaluacin adicional. Instrucciones explicadas al PT, que entiende y est de acuerdo con el plan de [facility]. Referrals: [facility] [Outside] Anant Dyer MD [Staff Provider] -
[2019-02-04 17:31] VITALS: BP 117/62; PULSE 61; RESP 18; TEMP 98
--- NOTE | 2019-02-05 14:22 | CARD ---
APPROVED REPORT Date of service: 02/03/2019 EKG Measurement Heart [id number] <Conclusion> Sinus bradycardia Nonspecific T wave abnormality Abnormal ECG
== END 2019-02-04 19:50 | disposition home or self-care (01) ==
LOC: C.ER 14:52 → C.9E 17:44 → C.6T 18:13
PROVIDERS: ADMIT Family Medicine; ATTEND Family Medicine
DX: I10 Essential (primary) hypertension (principal); R94.39 Abnormal result of other cardiovascular function study; R07.89 Other chest pain; R94.31 Abnormal electrocardiogram [ECG] [EKG]; Z23 Encounter for immunization; M81.0 Age-related osteoporosis without current pathological fracture; Z87.891 Personal history of nicotine dependence; Z90.49 Acquired absence of other specified parts of digestive tract; K57.92 Diverticulitis of intestine, part unspecified, without perforation or abscess without bleeding; Z79.899 Other long term (current) drug therapy
CPT/HCPCS: 36415; 71045; 78452; 80048; 80053; 80061; 80324; 80345; 80346; 80349; 80353; 80358; 80361; 82553; 83036; 83735; 83880; 83992; 84100; 84439; 84443; 84484; 85025; 90471; 90732; 93005; 93017; 93306; 99284; A9502; G0378; J1644; J2785